=== PATIENT | male | born 1965 | race Native Hawaiian/Other Pacific Islander ===

== ENCOUNTER 2020-06-02 11:11 | Emergency (ER) | payer BC ==
[~2020-06-02] VITALS: Ht 165 cm; Wt 94.3 kg
[2020-06-02 11:43] VITALS: BP_SYST 148; BP_SYST 158; BP_SYST 159; BP_DIAS 105; BP_DIAS 109
--- NOTE | 2020-06-02 12:24 | ED Syncope ---
General Chief Complaint: Dizziness/Syncope Stated Complaint: DIZZINESS Nursing Triage Note: PT AMBULATES WITHOUT ASSISTANCE TO ROOM 5. PT PRESENTS TO ED VIA POV FROM HOME WITH COMPLAINTS OF DIZZINESS X 3 WEEKS AND BUMP ON BACK OF HIS NECK. PT REPORTS HE HAS SEEN HIS DR FOR RTHIS COMPLAINTS AND REPORTS "THEY JUST GAVE ME SOME MEDICATION". History of Present Illness Date Seen by Provider: Jun 02, 2020 Time Seen by Provider: 12:00 Initial Comments 54-year-old [place] complains of dizziness that has been present for approximately 3 weeks as well as a not in the soft tissue on the left side of his cervical spine. He denies an injury to his neck but has increased pain in this area with range of motion. He was started on medication approximately [address] Matamoros, he has taken the medication until last night. His medications include cyclobenzaprine, prednisone taper, tramadol, Zofran, and sulindac. He denies any chest pain, shortness of breath or falls related to the vertigo. He reports pain started after lifting boxes at [employer]. Timing/Prior Episodes: Recent History Symptoms Prior to Episode: None Precipitating Factors: None Loss of Consciousness: No Loss of Consciousness Current Symptoms: No Blurred Vision, No Chest Pain, No Diaphoresis; Dizziness; No Headache, No Injury, No Lightheadedness, No Loss of Bladder Control, No Loss of Bowel Control, No Motionless; Nausea; No Pale, No Shallow/Rapid Breathing, No Weak/Absent Pulse, No Weakness Allergies and Home Medications Allergies Coded Allergies: No Known Drug Allergies (Unverified , 06/02/20) Patient Home Medication List Home Medication List Reviewed: Yes Review of Systems Constitutional: see HPI, dizziness; No malaise, No weakness EENTM: see HPI, no symptoms reported; No blurred vision, No double vision, No nose congestion Respiratory: no symptoms reported, see HPI; No cough, No short of breath Cardiovascular: no symptoms reported, see HPI; No chest pain Gastrointestinal: see HPI, nausea (Related to the dizziness, denies symptoms at this time); No vomiting Musculoskeletal: neck pain (Left) Skin: no symptoms reported, see HPI; No lumps, No rash Psychiatric/Neurological: No Symptoms Reported, See HPI; Denies Headache All Other Systems Reviewed Negative Unless Noted: Yes Past Yktgodr-Xcjxlj-Igxtqx Hx Past Med/Social Hx: Reviewed Nursing Past Med/Soc Hx Patient Social History Alcohol Use: Denies Use Recreational Drug Use: No Smoking Status: Former Smoker Former Smoker, Quit: Jun 13, 2005 Recent Foreign Travel: No Contact w/Someone Who Travel: No Recent Infectious Disease Expo: No Recent Hopitalizations: No Physical Abuse: No Sexual Abuse: No Mistreated: No Fear: No Seasonal Allergies Seasonal Allergies: No Past Medical History Surgeries: No Respiratory: No Cardiac: No Neurological: No Genitourinary: No Gastrointestinal: No Musculoskeletal: No Endocrine: No HEENT: No Cancer: No Psychosocial: No Integumentary: No Blood Disorders: No Physical Exam Vital Signs Vital Signs - First Documented 06/02/20 11:28 Temp 35.9 Pulse 79 Resp 16 B/P (MAP) 165/108 (127) Pulse Ox 96 Capillary Refill : Less Than 3 Seconds Height, Weight, BMI Height: '" Weight: lbs. oz. kg; 34.00 BMI Method: General Appearance: No Apparent Distress, WD/WN HEENT: PERRL/EOMI, Pharynx Normal, TM Abnormal (L) (Cloudy effusion), TM Abnormal (R) (Cloudy effusion mild erythema in canal) Neck: Full Range of Motion (Pain with full flexion no pain with extension or lateral rotation), Normal Inspection, Supple, Tender Lateral (Left) Cardiovascular: Regular Rate, Rhythm, No Edema, No JVD, No Murmur, Normal Peripheral Pulses, Other (No carotid bruit) Respiratory: Chest Non Tender, Lungs Clear, Normal Breath Sounds Gastrointestinal: Normal Bowel Sounds, Non Tender, Soft Back: Normal Inspection, No CVA Tenderness Extremities: Normal Capillary Refill, Normal Inspection, No Pedal Edema Neurologic/Psychiatric: Alert, Oriented x3, No Motor/Sensory Deficits, Normal Mood/Affect Cranial Nerves: Normal Hearing, Normal Speech, PERRL Coordination/Gait: Normal Gait Motor/Sensory: No Motor Deficit, No Sensory Deficit Skin: Normal Color, Warm/Dry; No Rash Progress/Results/Core Measures Results/Orders Lab Results Laboratory Tests Test 06/02/20 12:28 Range/Units White Blood Count 8.8 4.3-11.0 10^3/uL Red Blood Count 5.42 4.30-5.52 10^6/uL Hemoglobin 16.2 13.3-17.7 g/dL Hematocrit 47 40-54 % Mean Corpuscular Volume 87 80-99 fL Mean Corpuscular Hemoglobin 30 25-34 pg Mean Corpuscular Hemoglobin Concent 34 32-36 g/dL Red Cell Distribution Width 11.9 10.0-14.5 % Platelet Count 243 130-400 10^3/uL Mean Platelet Volume 7.9 L 9.0-12.2 fL Immature Granulocyte % (Auto) 1 % Neutrophils (%) (Auto) 59 42-75 % Lymphocytes (%) (Auto) 31 12-44 % Monocytes (%) (Auto) 7 0-12 % Eosinophils (%) (Auto) 2 0-10 % Basophils (%) (Auto) 0 0-10 % Neutrophils # (Auto) 5.2 1.8-7.8 10^3/uL Lymphocytes # (Auto) 2.7 1.0-4.0 10^3/uL Monocytes # (Auto) 0.7 0.0-1.0 10^3/uL Eosinophils # (Auto) 0.2 0.0-0.3 10^3/uL Basophils # (Auto) 0.0 0.0-0.1 10^3/uL Immature Granulocyte # (Auto) 0.1 0.0-0.1 10^3/uL Sodium Level 131 L 135-145 MMOL/L Potassium Level 4.2 3.6-5.0 MMOL/L Chloride Level 97 L 98-107 MMOL/L Carbon Dioxide Level 26 21-32 MMOL/L Anion Gap 8 5-14 MMOL/L Blood Urea Nitrogen 16 7-18 MG/DL Creatinine 1.07 0.60-1.30 MG/DL Estimat Glomerular Filtration Rate > 60 BUN/Creatinine Ratio 15 Glucose Level 119 H 70-105 MG/DL Calcium Level 9.5 8.5-10.1 MG/DL Corrected Calcium 9.3 8.5-10.1 MG/DL Total Bilirubin 0.7 0.1-1.0 MG/DL Aspartate Amino Transf (AST/SGOT) 21 5-34 U/L Alanine Aminotransferase (ALT/SGPT) 80 H 0-55 U/L Alkaline Phosphatase 112 40-136 U/L C-Reactive Protein High Sensitivity 0.44 0.00-0.50 MG/DL Total Protein 7.9 6.4-8.2 GM/DL Albumin 4.3 3.2-4.5 GM/DL My Orders Orders - AMOS LORD Ct Cervical Spine Wo (06/02/20 13:00) Orphenadrine Inj (Ed Only) (Norflex Inje (06/02/20 13:10) Meclizine Tablet (Antivert Tablet) (06/02/20 13:15) Medications Given in ED Current Medications Medications Dose Ordered Sig/Deja Route Start Time Stop Time Status Last Admin Dose Admin Meclizine HCl 25 mg ONCE ONCE PO 06/02/20 13:15 06/02/20 13:16 DC 06/02/20 13:31 25 MG Vital Signs/I&O 06/02/20 06/02/20 11:28 11:43 Temp 35.9 Pulse 79 70 76 80 Resp 16 B/P (MAP) 165/108 (127) 159/105 (123) 148/109 (122) 158/105 (122) Pulse Ox 96 Blood Pressure Mean: 122 Progress Progress Note : Time: 12:00 Progress Note Patient seen and evaluated, will obtain labs and a CT of the neck. Will give Norflex and meclizine. 1300 CT scan pending. 1350 patient reports symptoms are improving. Discharge instructions and return precautions reviewed. All questions answered Initial ECG Impression Date: Jun 02, 2020 Initial ECG Impression Time: 11:29 Initial ECG Rate: 71 Initial ECG Rhythm: Normal Sinus Initial ECG Intervals: Normal Initial ECG Intervals IA 170, QRSD 86, QT 386, QTc 420. [place] P 28, QRS 14, T 29. Initial ECG Impression: Normal Initial ECG Comparisson: No Previous ECG Available Comment Reviewed with Dr. Arenas, agreed with interpretation. Diagnostic Imaging Diagonstic Imaging: CT Plain Films/CT/US/NM/MRI: c-spine Comments NAME: [facility] REC#: [id number] PT STATUS: REG ER : 1965 PHYSICIAN: AMOS LORD ADMIT DATE: 06/02/20/ER Draft Date of Exam:06/02/20 CT CERVICAL SPINE WO PROCEDURE: CT cervical spine without contrast. TECHNIQUE: Multiple contiguous axial images were obtained through the cervical spine without the use of intravenous contrast. Sagittal and coronal reformations were then performed. Auto Exposure Controls were utilized during the CT exam to meet ALARA standards for radiation dose reduction. INDICATION: Dizziness, palpable fullness on the back of the neck. FINDINGS: Cervical vertebral statures are normal. The alignment is anatomic. No acute or suspicious endplate irregularity. No bony destruction or suspicious sclerotic foci. No fracture is identified. Degenerative changes to the discs, endplates, and facets throughout the cervical spine are present. At C3-C4, there is moderate canal and severe left foraminal stenosis. No paraspinal mass, hemorrhage, or fluid collection. Just below the posterior skull base within the posterior soft tissues of the neck, there are some tiny subcutaneous nodules measuring maximal diameter of 5 mm. These may be small sebaceous cysts or small lymph nodes. The soft tissues that can be included in the [id number] revealed no suspicious finding. IMPRESSION: Cervical spondylosis with stenosis greatest at C3-C4 as a chronic finding. No fracture, malalignment, or acute bony pathology. No demonstrated suspicious mass or fluid collection. Dictated on workstation # [id number] Dict: 06/02/20 1332 Trans: 06/02/20 1342 [id number] Interpreted by: KARIS CASTILLO Electronically signed by: Reviewed: Reviewed by Me Departure Impression Primary Impression: Sprain of cervical neck Qualified Codes: S13.9XXA - Sprain of joints and ligaments of unspecified parts of neck, initial encounter Additional Impressions: Vertigo Otitis media Qualified Codes: H66.90 - Otitis media, unspecified, unspecified ear Disposition: 01 HOME, SELF-CARE Condition: Stable Departure-Patient Inst. Decision time for Depature: 13:50 Referrals: TIMOTHY MATAMOROS DO Patient Instructions: Vertigo (a Type of Dizziness) (DC), Labyrinthitis, Cervical Muscle Strain (DC) Add. Discharge Instructions: Continue medications as prescribed by Dr. Matamoros. Take Meclizine 25 mg, Over the Counter, 1 tablet every 8 hours for dizziness. Consider referral for Physical Therapy, Dr. Matamoros can order this. Alternate heat and ice to your neck for 20 minutes at a time. Return to the emergency dept for new, urgent health care needs. All discharge instructions reviewed with patient and/or family. Voiced understanding. Work/School Note: Work Release Form Date Seen in the Emergency Department: Jun 02, 2020 Return to Work: Jun 06, 2020 Other Restrictions Listed Below: No lifting greater than 15 lbs for 2 weeks. No work from elevated levles. Copy Copies To 1: TIMOTHY MATAMOROS AMY ARNP Jun 02, 2020 12:24
[2020-06-02 12:38] LABS: BASOPHILS % (AUTO) 0 % (0-10); EOSINOPHILS # (AUTO) 0.2 10^3/uL (0.0-0.3); EOSINOPHILS % (AUTO) 2 % (0-10); HEMATOCRIT 47 % (40-54); HEMOGLOBIN 16.2 g/dL (13.3-17.7); LYMPHOCYTES # (AUTO) 2.7 10^3/uL (1.0-4.0); LYMPHOCYTES % (AUTO) 31 % (12-44); MEAN CORPUSCULAR HEMOGLOBIN 30 pg (25-34); MEAN CORPUSCULAR HGB CONC 34 g/dL (32-36); MEAN CORPUSCULAR VOLUME 87 fL (80-99); MEAN PLATELET VOLUME 7.9 fL (9.0-12.2); MONOCYTES # (AUTO) 0.7 10^3/uL (0.0-1.0); MONOCYTES % (AUTO) 7 % (0-12); NEUTROPHILS # (AUTO) 5.2 10^3/uL (1.8-7.8); NEUTROPHILS % (AUTO) 59 % (42-75); PLATELET COUNT 243 10^3/uL (130-400); WHITE BLOOD COUNT 8.8 10^3/uL (4.3-11.0)
[2020-06-02 12:45] LABS: ALBUMIN 4.3 GM/DL (3.2-4.5); CHLORIDE 97 MMOL/L (98-107); POTASSIUM 4.2 MMOL/L (3.6-5.0); SODIUM 131 MMOL/L (135-145)
[2020-06-02 12:46] LABS: CALCIUM 9.5 MG/DL (8.5-10.1)
[2020-06-02 12:47] LABS: GLUCOSE 119 MG/DL (70-105); TOTAL PROTEIN 7.9 GM/DL (6.4-8.2)
[2020-06-02 12:48] LABS: CARBON DIOXIDE 26 MMOL/L (21-32)
[2020-06-02 12:49] LABS: BILIRUBIN,TOTAL 0.7 MG/DL (0.1-1.0)
[2020-06-02 12:51] LABS: ALKALINE PHOSPHATASE 112 U/L (40-136); CREATININE SERUM 1.07 MG/DL (0.60-1.30); GFR ESTIMATED > 60
[2020-06-02 12:52] LABS: BUN/CREATININE RATIO 15
[2020-06-02 12:54] LABS: ALANINE AMINOTRANSFERASE 80 U/L (0-55)
[2020-06-02] MEDS ORDERED: ORPHENADRINE 60 MG/2 ML (NORFLEX) AMP (ED ONLY) IM STA (13:10)
[2020-06-02] MEDS ORDERED: CYCL10TA9 (13:11)
[2020-06-02] MEDS ORDERED: TRAM50TA3 (13:11)
[2020-06-02] MEDS ORDERED: PRD10T (13:11)
[2020-06-02] MEDS ORDERED: SULI150T (13:11)
[2020-06-02] MEDS ORDERED: ONDA-105 (13:11)
[2020-06-02] MEDS ORDERED: MELO15TA39 (13:11)
[2020-06-02] MEDS ORDERED: MECLIZINE 25 MG (ANTIVERT) TAB PO ONE (13:15)
--- NOTE | 2020-06-02 13:43 | Diagnostic Imaging Report ---
PROCEDURE: CT cervical spine without contrast. TECHNIQUE: Multiple contiguous axial images were obtained through the cervical spine without the use of intravenous contrast. Sagittal and coronal reformations were then performed. Auto Exposure Controls were utilized during the CT exam to meet ALARA standards for radiation dose reduction. INDICATION: Dizziness, palpable fullness on the back of the neck. FINDINGS: Cervical vertebral statures are normal. The alignment is anatomic. No acute or suspicious endplate irregularity. No bony destruction or suspicious sclerotic foci. No fracture is identified. Degenerative changes to the discs, endplates, and facets throughout the cervical spine are present. At C3-C4, there is moderate canal and severe left foraminal stenosis. No paraspinal mass, hemorrhage, or fluid collection. Just below the posterior skull base within the posterior soft tissues of the neck, there are some tiny subcutaneous nodules measuring maximal diameter of 5 mm. These may be small sebaceous cysts or small lymph nodes. The soft tissues that can be included in the qoikp-eo-nzct revealed no suspicious finding. IMPRESSION: Cervical spondylosis with stenosis greatest at C3-C4 as a chronic finding. No fracture, malalignment, or acute bony pathology. No demonstrated suspicious mass or fluid collection. Dictated by: Dictated on workstation # [id number]
[2020-06-02 14:33] VITALS: BP 139/96
== END 2020-06-02 14:33 | disposition home or self-care (01) ==
LOC: ER 11:16
DX: S13.4XXA Sprain of ligaments of cervical spine, initial encounter (principal); R42 Dizziness and giddiness; H66.92 Otitis media, unspecified, left ear; Z87.891 Personal history of nicotine dependence; X58.XXXA Exposure to other specified factors, initial encounter
CPT/HCPCS: 36415; 72125; 80053; 85025; 86141; 93005

== ENCOUNTER 2021-01-12 10:17 | Emergency (ER) | payer BC ==
[~2021-01-12] VITALS: Ht 167.7 cm; Wt 94.3 kg
[~2021-01-12 10:17] MED LIST: CYCL10TA9; MELO15TA39; ONDA-105; PRD10T; SULI150T; TRAM50TA3
[2021-01-12] MEDS ORDERED: LACTATED RINGERS 1,000 ML IV STA (11:07)
[2021-01-12 11:20] LABS: BASOPHILS % (AUTO) 0 % (0-10); EOSINOPHILS % (AUTO) 1 % (0-10); HEMATOCRIT 47 % (40-54); HEMOGLOBIN 16.3 g/dL (13.3-17.7); LYMPHOCYTES # (AUTO) 1.4 X 10^3 (1.0-4.0); LYMPHOCYTES % (AUTO) 30 % (12-44); MEAN CORPUSCULAR HEMOGLOBIN 30 pg (25-34); MEAN CORPUSCULAR HGB CONC 35 g/dL (32-36); MEAN CORPUSCULAR VOLUME 88 fL (80-99); MEAN PLATELET VOLUME 8.2 fL (9.0-12.2); MONOCYTES # (AUTO) 0.4 X 10^3 (0.0-1.0); MONOCYTES % (AUTO) 9 % (0-12); NEUTROPHILS # (AUTO) 2.7 X 10^3 (1.8-7.8); NEUTROPHILS % (AUTO) 59 % (42-75); PLATELET COUNT 187 10^3/uL (130-400); WHITE BLOOD COUNT 4.5 10^3/uL (4.3-11.0)
[2021-01-12 11:26] LABS: ALBUMIN 3.9 GM/DL (3.2-4.5); POTASSIUM 4.6 MMOL/L (3.6-5.0)
[2021-01-12 11:27] LABS: CALCIUM 8.5 MG/DL (8.5-10.1)
[2021-01-12 11:30] LABS: BILIRUBIN,TOTAL 0.5 MG/DL (0.1-1.0)
[2021-01-12 11:32] LABS: CREATININE SERUM 0.98 MG/DL (0.60-1.30)
--- NOTE | 2021-01-12 11:35 | ED General ---
General Chief Complaint: Dizziness/Syncope Stated Complaint: DIZZINESS;COVID+ Nursing Triage Note: PATIENT STATES HE TESTED POSITIVE ON SATURDAY LAST WEEK AND HAS BEEN FEELING DIZZY, POOR APPETITE , MALAISE AND ABDOMINAL WALL PAIN WITH COUGHING. Source of Information: Patient Exam Limitations: No Limitations (KARYN DELGADO APRN) History of Present Illness Date Seen by Provider: Jan 12, 2021 Time Seen by Provider: 11:35 Initial Comments To ER with reports he became symptomatic on Saturday the , tested positive Saturday the . Presents today with dizziness headache and general malaise. Timing/Duration: 1-2 Days Severity: Moderate Associated Systoms: Cough (KARYN DELGADO APRN) Allergies and Home Medications Allergies Coded Allergies: No Known Drug Allergies (Unverified , 06/02/20) Patient Home Medication List Home Medication List Reviewed: Yes (KARYN DELGADO APRN) Review of Systems Review of Systems Constitutional: see HPI, chills EENTM: see HPI Respiratory: no symptoms reported; No cough, No dyspnea on exertion Cardiovascular: see HPI Genitourinary: no symptoms reported Musculoskeletal: no symptoms reported Skin: no symptoms reported Psychiatric/Neurological: No Symptoms Reported Hematologic/Lymphatic: No Symptoms Reported Immunological/Allergic: no symptoms reported (KARYN DELGADO APRN) Past Ncxgghp-Sljgmk-Krcxst Hx Patient Social History Tobacco Use?: No Use of E-Cig and/or Vaping dev: No Substance use?: No Alcohol Use?: No Pt feels they are or have been: No (KARYN DELGADO APRN) Immunizations Up To Date Influenza Vaccine Up-to-Date: Yes; Up-to-Date (KARYN DELGADO APRN) Seasonal Allergies Seasonal Allergies: No (KARYN DELGADO APRN) Past Medical History Surgeries: No Respiratory: No Cardiac: No Neurological: No Genitourinary: No Gastrointestinal: No Musculoskeletal: No Endocrine: No HEENT: No Cancer: No Psychosocial: No Integumentary: No Blood Disorders: No (KARYN DELGADO APRN) Physical Exam Vital Signs Vital Signs - First Documented 01/12/21 01/12/21 10:35 10:51 Temp 37.3 Pulse 84 Resp 18 B/P (MAP) 144/95 (111) Pulse Ox 96 O2 Delivery Room Air (AL ODOM MD) Vital Signs Capillary Refill : Less Than 3 Seconds (KARYN DELGADO APRN) Height, Weight, BMI Height: '" Weight: lbs. oz. kg; 33.00 BMI Method: General Appearance: No Apparent Distress, WD/WN, Other (98% on room air with normal respiratory rate) Eyes: Bilateral Eye Normal Inspection, Bilateral Eye PERRL, Bilateral Eye EOMI HEENT: PERRL/EOMI, TMs Normal Neck: Full Range of Motion, Normal Inspection Respiratory: Normal Breath Sounds, No Accessory Muscle Use, No Respiratory Distress Cardiovascular: Regular Rate, Rhythm, Normal Peripheral Pulses Gastrointestinal: Normal Bowel Sounds, Non Tender, Soft Extremity: Normal Capillary Refill, Normal Inspection Neurologic/Psychiatric: Alert, Oriented x3 Skin: Normal Color, Warm/Dry (KARYN DELGADO APRN) Progress/Results/Core Measures Suspected Sepsis SIRS Temperature: Pulse: 84 Respiratory Rate: 18 Laboratory Tests 01/12/21 10:51: White Blood Count 4.5 Blood Pressure 144 /95 Mean: 111 Laboratory Tests 01/12/21 10:51: Creatinine 0.98, Platelet Count 187, Total Bilirubin 0.5 (KARYN DELGADO APRN) Results/Orders Lab Results Laboratory Tests Test 01/12/21 10:51 Range/Units White Blood Count 4.5 4.3-11.0 10^3/uL Red Blood Count 5.39 4.30-5.52 10^6/uL Hemoglobin 16.3 13.3-17.7 g/dL Hematocrit 47 40-54 % Mean Corpuscular Volume 88 80-99 fL Mean Corpuscular Hemoglobin 30 25-34 pg Mean Corpuscular Hemoglobin Concent 35 32-36 g/dL Red Cell Distribution Width 12.1 10.0-14.5 % Platelet Count 187 130-400 10^3/uL Mean Platelet Volume 8.2 L 9.0-12.2 fL Immature Granulocyte % (Auto) 0 % Neutrophils (%) (Auto) 59 42-75 % Lymphocytes (%) (Auto) 30 12-44 % Monocytes (%) (Auto) 9 0-12 % Eosinophils (%) (Auto) 1 0-10 % Basophils (%) (Auto) 0 0-10 % Neutrophils # (Auto) 2.7 1.8-7.8 X 10^3 Lymphocytes # (Auto) 1.4 1.0-4.0 X 10^3 Monocytes # (Auto) 0.4 0.0-1.0 X 10^3 Eosinophils # (Auto) 0.0 0.0-0.3 10^3/uL Basophils # (Auto) 0.0 0.0-0.1 10^3/uL Immature Granulocyte # (Auto) 0.0 0.0-0.1 10^3/uL Sodium Level 131 L 135-145 MMOL/L Potassium Level 4.6 3.6-5.0 MMOL/L Chloride Level 96 L 98-107 MMOL/L Carbon Dioxide Level 19 L 21-32 MMOL/L Anion Gap 16 H 5-14 MMOL/L Blood Urea Nitrogen 14 7-18 MG/DL Creatinine 0.98 0.60-1.30 MG/DL Estimat Glomerular Filtration Rate 80 BUN/Creatinine Ratio 14 Glucose Level 158 H 70-105 MG/DL Calcium Level 8.5 8.5-10.1 MG/DL Corrected Calcium 8.6 8.5-10.1 MG/DL Total Bilirubin 0.5 0.1-1.0 MG/DL Aspartate Amino Transf (AST/SGOT) 38 H 5-34 U/L Alanine Aminotransferase (ALT/SGPT) 50 0-55 U/L Alkaline Phosphatase 104 40-136 U/L C-Reactive Protein High Sensitivity 3.84 H 0.00-0.50 MG/DL Total Protein 8.0 6.4-8.2 GM/DL Albumin 3.9 3.2-4.5 GM/DL (AL ODOM MD) Vital Signs/I&O 01/12/21 01/12/21 01/12/21 10:35 10:51 12:55 Temp 37.3 Pulse 84 86 Resp 18 18 B/P (MAP) 144/95 (111) 144/85 (111) Pulse Ox 96 97 O2 Delivery Room Air Room Air Room Air (AL ODOM MD) Vital Signs/I&O Capillary Refill : Less Than 3 Seconds (KARYN DELGADO APRN) Blood Pressure Mean: 111 Departure Impression Primary Impression: COVID-19 Disposition: 01 HOME, SELF-CARE Condition: Improved Departure-Patient Inst. Decision time for Depature: 12:35 (KARYN DELGADO APRN) Referrals: TIMOTHY MATAMOROS DO (PCP/Family) Primary Care Physician Patient Instructions: COVID-19 (DC) ATTENDING PHYSICIAN NOTE: I was physically present as attending physician in the emergency department during the care of this patient, but I was not directly involved in the decision making or delivery of care for this patient. (AL ODOM MD) KARYN DELGADO APRN Jan 12, 2021 11:35 AL ODOM MD Jan 13, 2021 19:19
--- NOTE | 2021-01-12 12:00 | Diagnostic Imaging Report ---
INDICATION: COVID infection. FINDINGS: Single AP view of the chest is obtained. Heart size and pulmonary vascularity are at the upper limits of normal. There may be slight ground-glass density in the parahilar regions; however, no consolidation, pneumothorax, or pleural fluid is seen. IMPRESSION: Heart size and pulmonary vascularity are at the upper limits of normal with possible slight parahilar edema and/or pneumonitis. Dictated by: Dictated on workstation # [id number]
[2021-01-12] MEDS ORDERED: ORPHENADRINE 60 MG/2 ML (NORFLEX) AMP (ED ONLY) IV ONE (12:45)
[2021-01-12] MEDS ORDERED: MECLIZINE 25 MG (ANTIVERT) TAB PO ONE (12:45)
[2021-01-12] MEDS ORDERED: KETOROLAC 30 MG/ML VIAL IVP ONE (12:45)
[2021-01-12 12:55] VITALS: BP 144/85
== END 2021-01-12 12:58 | disposition home or self-care (01) ==
LOC: EDUNIT# 10:17 → ER 10:19
DX: U07.1 COVID-19 (principal)
CPT/HCPCS: 36415; 71045; 80053; 85025; 86141

== ENCOUNTER 2021-01-13 20:53 | Emergency (ER) | payer BC ==
[~2021-01-13] VITALS: Ht 167.6 cm; Wt 97.0 kg
[2021-01-13] MEDS ORDERED: LACTATED RINGERS 1,000 ML IV ONE (21:15)
--- NOTE | 2021-01-13 21:22 | ED General ---
General Stated Complaint: COVID POSITIVE,SOB Source of Information: Patient (SOMEWHAT LIMITED HISTORIAN) History of Present Illness Date Seen by Provider: Jan 13, 2021 Time Seen by Provider: 21:03 Initial Comments PT ARRIVES VIA EMS FROM HOME PT IS COVID-19 POSITIVE STATES HE BEGAN GETTING SICK LAST Saturday01/02/21, AND TESTED + FOR COVID-19 ON Saturday01/04/[address] [facility] [address] THRU TESTING STATES HE HAS HAD A COUGH AND FEVER--HAS NEVER CHECKED HIS TEMPERATURE HAS NOT TAKEN ANYTHING FOR HIS SYMPTOMS AT ANY TIME PT ARRIVES TONIGHT FOR BODY ACHES AND MUSCLE CRAMPING FOR THE LAST COUPLE OF HOURS C/O MILD SHORTNESS OF BREATH NO NAUSEA/VOMITING/DIARRHEA NO HEADACHE NO LOSS OF TASTE OR SMELL C/O DIZZINESS AT TIMES SEEN HERE YESTERDAY FOR SAME SYMPTOMS NO DIFFERENT TODAY PT LIVES ALONE STATES HE WORKS AT [employer] DENIES CHRONIC ILLNESSES OR DAILY MEDICATIONS PCP: DR. MATAMOROS Allergies and Home Medications Allergies Coded Allergies: No Known Drug Allergies (Unverified , 06/02/20) Home Medications Azithromycin 500 Mg Tablet, 500 MG PO DAILY Prescribed by: GERMAIN ONEILL on 01/14/2139 Benzonatate 100 Mg Capsule, 200 MG PO TID Prescribed by: GERMAIN ONEILL on 01/14/2140 Dexamethasone 6 Mg Tablet, 6 MG PO DAILY Prescribed by: GERMAIN ONEILL on 01/14/2139 Patient Home Medication List Home Medication List Reviewed: Yes Review of Systems Review of Systems Constitutional: see HPI, diaphoresis, dizziness, fever, malaise EENTM: no symptoms reported Respiratory: see HPI, cough, short of breath Cardiovascular: no symptoms reported; No chest pain Gastrointestinal: No diarrhea; loss of appetite; No nausea, No vomiting Genitourinary: no symptoms reported Musculoskeletal: see HPI, muscle pain, muscle cramps Skin: no symptoms reported Psychiatric/Neurological: No Symptoms Reported; Denies Headache Hematologic/Lymphatic: No Symptoms Reported Immunological/Allergic: no symptoms reported Past Hesllwv-Ujqxxb-Dndlzj Hx Patient Social History Tobacco Use?: No Smoking Status: Never a Smoker Smokeless Tobacco Frequency: Never a User Use of E-Cig and/or Vaping Aram: Never a User Substance use?: No Alcohol Use?: No Seasonal Allergies Seasonal Allergies: No Past Medical History Surgeries: No Respiratory: Yes (COVID-19 12/2019) Cardiac: No Neurological: No Genitourinary: No Gastrointestinal: No Musculoskeletal: No Endocrine: No HEENT: No Cancer: No Psychosocial: No Integumentary: No Blood Disorders: No Physical Exam Vital Signs Vital Signs - First Documented 01/13/21 21:04 Temp 37.2 Pulse 84 Resp 20 B/P (MAP) 121/87 (98) Pulse Ox 97 O2 Delivery Room Air Capillary Refill : Height, Weight, BMI Height: '" Weight: lbs. oz. kg; 33.00 BMI Method: General Appearance: No Apparent Distress, WD/WN, Other (DIAPHORETIC. STANDING ON SIDE OF BED, LEANING OVER RAIL, BUT DOES NOT APPEAR TO BE IN ANY ACTUAL DISTRESS. ) HEENT: PERRL/EOMI, TMs Normal, Normal ENT Inspection, Pharynx Normal Neck: Normal Inspection Respiratory: Chest Non Tender, Normal Breath Sounds, No Accessory Muscle Use, No Respiratory Distress Cardiovascular: Regular Rate, Rhythm, No Edema, No JVD, No Murmur, Normal Peripheral Pulses Gastrointestinal: Non Tender, Soft Back: Normal Inspection Extremity: Normal Inspection Neurologic/Psychiatric: Alert, Oriented x3, No Motor/Sensory Deficits, Normal Mood/Affect, cook box filler II-XII Norm as Tested Skin: Normal Color (PT IS ), Diaphoresis (AND WARM) Focused Exam Lactate Level 01/13/21 21:29: Lactic Acid Level Laboratory Tests Test 01/13/21 21:29 Progress/Results/Core Measures Suspected Sepsis SIRS Temperature: Pulse: Respiratory Rate: Laboratory Tests 01/13/21 21:29: White Blood Count 5.8 Blood Pressure / Mean: 01/13/21 21:29: Laboratory Tests 01/13/21 21:29: Creatinine 1.04, INR Comment 0.9, Platelet Count 205, Total Bilirubin 0.5 Results/Orders Lab Results Laboratory Tests Test 01/13/21 21:29 01/13/21 23:08 Range/Units White Blood Count 5.8 4.3-11.0 10^3/uL Red Blood Count 5.50 4.30-5.52 10^6/uL Hemoglobin 16.7 13.3-17.7 g/dL Hematocrit 48 40-54 % Mean Corpuscular Volume 87 80-99 fL Mean Corpuscular Hemoglobin 30 25-34 pg Mean Corpuscular Hemoglobin Concent 35 32-36 g/dL Red Cell Distribution Width 11.8 10.0-14.5 % Platelet Count 205 130-400 10^3/uL Mean Platelet Volume 8.3 L 9.0-12.2 fL Immature Granulocyte % (Auto) 1 % Neutrophils (%) (Auto) 66 42-75 % Lymphocytes (%) (Auto) 23 12-44 % Monocytes (%) (Auto) 10 0-12 % Eosinophils (%) (Auto) 1 0-10 % Basophils (%) (Auto) 0 0-10 % Neutrophils # (Auto) 3.8 1.8-7.8 10^3/uL Lymphocytes # (Auto) 1.3 1.0-4.0 10^3/uL Monocytes # (Auto) 0.6 0.0-1.0 10^3/uL Eosinophils # (Auto) 0.0 0.0-0.3 10^3/uL Basophils # (Auto) 0.0 0.0-0.1 10^3/uL Immature Granulocyte # (Auto) 0.0 0.0-0.1 10^3/uL Erythrocyte Sedimentation Rate 23 0-30 MM/HR Prothrombin Time 12.2 12.2-14.7 SEC INR Comment 0.9 0.8-1.4 Activated Partial Thromboplast Time 34 24-35 SEC D-Dimer 1.38 H 0.00-0.49 UG/ML Sodium Level 134 L 135-145 MMOL/L Potassium Level 4.6 3.6-5.0 MMOL/L Chloride Level 94 L 98-107 MMOL/L Carbon Dioxide Level 23 21-32 MMOL/L Anion Gap 17 H 5-14 MMOL/L Blood Urea Nitrogen 13 7-18 MG/DL Creatinine 1.04 0.60-1.30 MG/DL Estimat Glomerular Filtration Rate 74 BUN/Creatinine Ratio 13 Glucose Level 130 H 70-105 MG/DL Calcium Level 9.0 8.5-10.1 MG/DL Corrected Calcium 9.0 8.5-10.1 MG/DL Magnesium Level 2.2 1.6-2.4 MG/DL Total Bilirubin 0.5 0.1-1.0 MG/DL Aspartate Amino Transf (AST/SGOT) 55 H 5-34 U/L Alanine Aminotransferase (ALT/SGPT) 54 0-55 U/L Alkaline Phosphatase 117 40-136 U/L Total Creatine Kinase 300 H 30-200 U/L Creatine Kinase MB 1.2 <6.6 NG/ML Myoglobin 147.7 H 10.0-92.0 NG/ML Troponin I < 0.028 <0.028 NG/ML C-Reactive Protein High Sensitivity 6.68 H 0.00-0.50 MG/DL B-Type Natriuretic Peptide < 10.0 <100.0 PG/ML Total Protein 8.0 6.4-8.2 GM/DL Albumin 4.0 3.2-4.5 GM/DL Procalcitonin 0.07 <0.10 NG/ML Urine Color YELLOW Urine Clarity CLEAR Urine pH 6.0 5-9 Urine Specific [place] 1.015 L 1.016-1.022 Urine Protein TRACE H NEGATIVE Urine Glucose (UA) NEGATIVE NEGATIVE Urine Ketones NEGATIVE NEGATIVE Urine Nitrite NEGATIVE NEGATIVE Urine Bilirubin NEGATIVE NEGATIVE Urine Urobilinogen 0.2 < = 1.0 MG/DL Urine Leukocyte Esterase NEGATIVE NEGATIVE Urine RBC (Auto) TRACE-I NEGATIVE Urine RBC 0-2 /HPF Urine WBC NONE /HPF Urine Crystals NONE /LPF Urine Bacteria TRACE /HPF Urine Casts PRESENT /LPF Urine Hyaline Casts 0-2 H /LPF Urine Mucus NEGATIVE /LPF Urine Culture Indicated NO Micro Results Microbiology 01/13/21 Blood Culture - Preliminary, Resulted No growth 01/13/21 Blood Culture - Preliminary, Resulted No growth My Orders Orders - GERMAIN ONEILL DO Ed Iv/Invasive Line Start (01/13/21 21:03) Ekg Tracing (01/13/21 21:03) O2 (01/13/21 21:03) Monitor-Rhythm Ecg Trace Only (01/13/21 21:03) BNP (01/13/21 21:03) Cbc With Automated Diff (01/13/21 21:03) Comprehensive Metabolic Panel (01/13/21 21:03) Creatine Kinase (01/13/21 21:03) Creatine Kinase Mb (01/13/21 21:03) Hs C Reactive Protein (01/13/21 21:03) Fibrin Degradation Products (01/13/21 21:03) Lactic Acid Analyzer (01/13/21 21:03) Magnesium (01/13/21 21:03) Procalcitonin (Pct) (01/13/21 21:03) Protime With Inr (01/13/21 21:03) Partial Thromboplastin Time (01/13/21 21:03) Ua Culture If Indicated (01/13/21 21:03) Blood Culture (01/13/21 21:03) Erythrocyte Sedimentation Rate (01/13/21 21:03) Myoglobin Serum (01/13/21 21:03) Troponin I (01/13/21 21:03) Ed Iv/Invasive Line Start (01/13/21 21:03) Lactated Ringers (Lr 1000 Ml Iv Solution (01/13/21 21:15) Chest 1 View, Ap/Pa Only (01/13/21 21:19) Dexamethasone Injection (Decadron Inje (01/13/21 22:00) Ct Angio Chest W (01/13/21 22:00) Iohexol Injection (Omnipaque 350 Mg/Ml 1 (01/14/21 00:00) Received Contrast (Hold Metformin- Contr (01/14/21 00:00) Sodium Chloride Flush (Catheter Flush Sy (01/14/21 00:00) Ns (Ivpb) (Sodium Chloride 0.9% Ivpb Bag (01/14/21 00:00) Azithromycin Tablet (Zithromax Tablet) (01/14/21 00:45) Medications Given in ED Vital Signs/I&O 01/13/21 01/14/21 21:04 03:31 Temp 37.2 Pulse 84 82 Resp 20 20 B/P (MAP) 121/87 (98) 109/87 Pulse Ox 97 94 O2 Delivery Room Air Room Air Capillary Refill : Progress Note : Progress Note PLACED IN ISOLATION ROOM PPE WORN AT ALL TIMES PT ADVISED OF CONTINUED NEED FOR QUARANTINE PT IS OUTSIDE TREATMENT WINDOW FOR REGEN-COV NO HYPOXIA NO DYSPNEA NO COUGH NO ABNORMAL VITALS NO TEMP > 99 THROUGHOUT ER STAY NO DETERIORATION IN PT'S CONDITION DURING ER STAY ECG Initial ECG Impression Date: Jan 13, 2021 Initial ECG Impression Time: 21:13 Initial ECG Rate: 88 Initial ECG Rhythm: Normal Sinus Diagnostic Imaging Comments CXR--PER RADIOLOGIST REPORT AT 2157 FINDINGS: Patchy bilateral peripheral infiltrates noted in the lung bases. Heart is unremarkable. There is mild pulmonary vascular congestion. There is no pneumothorax. IMPRESSION: 1. Scattered bilateral pulmonary infiltrates. 2. Mild pulmonary vascular congestion. CT CHEST ANGIOGRAM--PER RADIOLOGIST REPORT AT 0034 AND VIA [facility] IMPRESSION: 1. No CTA evidence of pulmonary embolus or other acute abnormality within the thorax. 2. Patchy predominantly groundglass densities in both lungs are likely related to patient's known Covid infection. Reviewed: Reviewed by Me Departure Impression Primary Impression: Pneumonia due to COVID-19 virus Disposition: HOME, SELF-CARE Condition: Stable Departure-Patient Inst. Referrals: TIMOTHY MATAMOROS DO (PCP/Family) Primary Care Physician Patient Instructions: COVID-19 ED, Pneumonia, Adult ED, Recovery After COVID-19 Add. Discharge Instructions: LOTS OF CLEAR LIQUIDS--WATER, BROTH,JELLO, GATORADE YOU NEED TO CHECK YOUR TEMPERATURE EVERY 4 HOURS ALTERNATE TYLENOL 1 GRAM AND MOTRIN 800 MG 4 TIMES A DAY NEEDED FOR PAIN OR FEVER OVER THE COUNTER ROBITUSSIN DM FOR COUGH FOLLOW UP WITH YOUR DR IN 4-5 DAYS FOR FURTHER CARE, RETURN TO ER IF YOUR BREATHING WORSENS Scripts Benzonatate (TESSALON PERLES) 100 Mg Capsule 200 MG PO TID, #50 CAP Prov: GERMAIN ONEILL DO 01/14/21 Dexamethasone (Decadron) 6 Mg Tablet 6 MG PO DAILY, #10 TAB Prov: GERMAIN ONEILL DO 01/14/21 Azithromycin (Zithromax) 500 Mg Tablet 500 MG PO DAILY for 5 Days, #5 TAB Prov: GERMAIN ONEILL DO 01/14/21 GERMAIN ONEILL DO Jan 13, 2021 21:22
[2021-01-13 21:38] LABS: BASOPHILS % (AUTO) 0 % (0-10); EOSINOPHILS % (AUTO) 1 % (0-10); HEMATOCRIT 48 % (40-54); HEMOGLOBIN 16.7 g/dL (13.3-17.7); LYMPHOCYTES # (AUTO) 1.3 10^3/uL (1.0-4.0); LYMPHOCYTES % (AUTO) 23 % (12-44); MEAN CORPUSCULAR HEMOGLOBIN 30 pg (25-34); MEAN CORPUSCULAR HGB CONC 35 g/dL (32-36); MEAN CORPUSCULAR VOLUME 87 fL (80-99); MEAN PLATELET VOLUME 8.3 fL (9.0-12.2); MONOCYTES # (AUTO) 0.6 10^3/uL (0.0-1.0); MONOCYTES % (AUTO) 10 % (0-12); NEUTROPHILS # (AUTO) 3.8 10^3/uL (1.8-7.8); NEUTROPHILS % (AUTO) 66 % (42-75); PLATELET COUNT 205 10^3/uL (130-400); WHITE BLOOD COUNT 5.8 10^3/uL (4.3-11.0)
--- NOTE | 2021-01-13 21:52 | Diagnostic Imaging Report ---
INDICATION: Covid positive. Cough and congestion. EXAMINATION: Chest 01/13/2021 COMPARISON: 01/12/2021 FINDINGS: Patchy bilateral peripheral infiltrates noted in the lung bases. Heart is unremarkable. There is mild pulmonary vascular congestion. There is no pneumothorax. IMPRESSION: 1. Scattered bilateral pulmonary infiltrates. 2. Mild pulmonary vascular congestion. Dictated by: Dictated on workstation # [id number]
[2021-01-13 21:53] LABS: CHLORIDE 94 MMOL/L (98-107); POTASSIUM 4.6 MMOL/L (3.6-5.0); SODIUM 134 MMOL/L (135-145)
[2021-01-13 21:55] LABS: FIBRIN DEGRADATION PRODUCTS 1.38 UG/ML (0.00-0.49); GLUCOSE 130 MG/DL (70-105); INR 0.9 (0.8-1.4); PROTHROMBIN TIME PATIENT 12.2 SEC (12.2-14.7)
[2021-01-13 21:56] LABS: CARBON DIOXIDE 23 MMOL/L (21-32)
[2021-01-13 21:57] LABS: BILIRUBIN,TOTAL 0.5 MG/DL (0.1-1.0)
[2021-01-13 21:59] LABS: ALKALINE PHOSPHATASE 117 U/L (40-136); CREATININE SERUM 1.04 MG/DL (0.60-1.30); GFR ESTIMATED 74
[2021-01-13 22:00] LABS: BUN/CREATININE RATIO 13
[2021-01-13 22:02] LABS: ALANINE AMINOTRANSFERASE 54 U/L (0-55); MAGNESIUM 2.2 MG/DL (1.6-2.4)
[2021-01-13 22:03] LABS: CREATINE KINASE 300 U/L (30-200)
[2021-01-13 22:09] LABS: ERYTHROCYTE SEDIMENTATION RATE 23 MM/HR (0-30)
[2021-01-13 22:10] LABS: CREATINE KINASE MB 1.2 NG/ML (<6.6)
[2021-01-13 23:20] LABS: BILIRUBIN,URINE NEGATIVE (NEGATIVE); CLARITY,URINE CLEAR; COLOR,URINE YELLOW; GLUCOSE, URINE (UA) NEGATIVE (NEGATIVE); KETONES,URINE NEGATIVE (NEGATIVE); LEUKOCYTE ESTERASE ,URINE NEGATIVE (NEGATIVE); NITRITE,URINE NEGATIVE (NEGATIVE); PROTEIN,URINE TRACE (NEGATIVE)
[2021-01-13 23:26] LABS: BACTERIA,URINE TRACE /HPF; HYALINE CASTS, URINE 0-2 /LPF; RBC,URINE 0-2 /HPF
[2021-01-14] MEDS ORDERED: HOLD METFORMIN - RECEIVED CONTRAST 20 ML VIAL IV SCH
[2021-01-14] MEDS ORDERED: NS 100 ML (IVPB) BAG IV ONE
[2021-01-14] MEDS ORDERED: IOHEXOL 350 MG/ML 100 ML (OMNIPAQUE 350) VIAL IV ONE
[2021-01-14] MEDS ORDERED: CATHETER FLUSH 10 ML SYR IV PRN
--- NOTE | 2021-01-14 00:03 | Diagnostic Imaging Report ---
PROCEDURE: CT angiography of the chest with contrast. TECHNIQUE: Multiple contiguous axial images were obtained through the chest after uneventful bolus administration of intravenous contrast. 3D reconstructed CTA MIP acquisitions were also performed. Auto Exposure Controls were utilized during the CT exam to meet ALARA standards for radiation dose reduction. INDICATION: Covid infection with dyspnea and shortness of breath. There is good opacification of the pulmonary arteries without intraluminal filling defect identified. Thoracic aorta is of normal caliber with mild diffuse atherosclerotic calcification. Patchy areas of predominantly groundglass density are seen in the periphery of both lungs without significant pleural or pericardial fluid. There is no evidence of pathologically enlarged adenopathy. Upper abdominal sections reveal no focal lesion. IMPRESSION: 1. No CTA evidence of pulmonary embolus or other acute abnormality within the thorax. 2. Patchy predominantly groundglass densities in both lungs are likely related to patient's known Covid infection. Dictated by: Dictated on workstation # [id number]
[2021-01-14] MEDS ORDERED: AZIT500T PO (00:40)
[2021-01-14] MEDS ORDERED: DEXA6TAB6 PO (00:40)
[2021-01-14] MEDS ORDERED: BENZ100C18 PO (00:41)
[2021-01-14] MEDS ORDERED: AZITHROMYCIN 250 MG TAB (ZITHROMAX) PO ONE (00:45)
[2021-01-14 03:31] VITALS: BP 109/87
== END 2021-01-14 01:21 | disposition home or self-care (01) ==
LOC: EDUNIT# 20:53 → ER 20:55
DX: U07.1 COVID-19 (principal); J12.82 Pneumonia due to coronavirus disease 2019
CPT/HCPCS: 71045; 71275; 80053; 81000; 82550; 82553; 83735; 83874; 83880; 84145; 84484; 85379; 85610; 85652; 85730; 86141; 87040; 93005; 93041

== ENCOUNTER 2021-02-15 12:02 | Inpatient (IN) | payer BC ==
[~2021-02-15] VITALS: Ht 167.7 cm; Wt 98.0 kg
[~2021-02-15 12:02] MED LIST changes: +AZIT500T PO; +BENZ100C18 PO; +DEXA6TAB6 PO
--- NOTE | 2021-02-15 12:26 | ED Chest Pain ---
General Chief Complaint: Chest Pain Stated Complaint: CP, History of Present Illness Date Seen by Provider: Feb 15, 2021 Time Seen by Provider: 12:10 Initial Comments 55-year-old male presents for chest pain that has been intermittent for the last month. He reports having Covid and since then he has been having discomfort. He has received his first Moderna shot. At 2200 yesterday he reports chest pain that has been consistent rating it between a 4 and 8. He was seen at [facility] and referred here. He denies a previous history of CAD and family history is only significant for hypertension. The patient denies any associated nausea, vomiting or diaphoresis with the pain. He rates the pain currently at a 2. He is not on any medications and is not allergic to any medications. He is not diabetic and reports eating breakfast this morning which did not change his symptoms. At times the chest pain is associated with tingling in both hands. He is not experiencing that at this time. He denies a history of HTN, 170s/100s currently. Timing/Duration: intermittent Severity/Quality: mild Location: substernal Radiation: no radiation Prior CP/Workup: no prior chest pain ASA po RNFA: No NTG SL RNFA: No Associated Symptoms: No abdominal pain, No back pain, No diaphoresis, No dizziness, No edema, No fatigue, No fever/chills, No headache, No heartburn, No nausea/vomiting, No shortness of breath, No syncope, No weakness Allergies and Home Medications Allergies Coded Allergies: No Known Drug Allergies (Unverified , 06/02/20) Home Medications Azithromycin 500 Mg Tablet, 500 MG PO DAILY Prescribed by: GERMAIN ONEILL on 01/14/2139 Benzonatate 100 Mg Capsule, 200 MG PO TID Prescribed by: GREMAIN ONEILL on 01/14/2140 Dexamethasone 6 Mg Tablet, 6 MG PO DAILY Prescribed by: GERMAIN ONEILL on 01/14/2139 Patient Home Medication List Home Medication List Reviewed: Yes Review of Systems Review of Systems Constitutional: no symptoms reported, see HPI Cardiovascular: See HPI, Chest Pain All Other Systems Reviewed Negative Unless Noted: Yes Past Mmzdodj-Yynxos-Tfnqyx Hx Seasonal Allergies Seasonal Allergies: No Past Medical History Surgeries: No Respiratory: Yes (COVID-19 12/2019) Cardiac: No Neurological: No Genitourinary: No Gastrointestinal: No Musculoskeletal: No Endocrine: No HEENT: No Cancer: No Psychosocial: No Integumentary: No Blood Disorders: No Family Medical History Reviewed Nursing Family Hx Physical Exam Vital Signs Capillary Refill : Height, Weight, BMI Height: '" Weight: lbs. oz. kg; 34.00 BMI Method: General Appearance: No Apparent Distress, WD/WN HEENT: PERRL/EOMI, TMs Normal, Normal ENT Inspection, Pharynx Normal Neck: Full Range of Motion, Normal Inspection, Non Tender, Supple Respiratory: Lungs Clear, Normal Breath Sounds Cardiovascular: Regular Rate, Rhythm, No Edema, No Murmur, Normal Peripheral Pulses Gastrointestinal: Normal Bowel Sounds, Non Tender, Soft Extremity: Normal Capillary Refill, Normal Inspection, Normal Range of Motion, Non Tender, No Pedal Edema Neurologic/Psychiatric: Alert, Oriented x3, No Motor/Sensory Deficits, Normal Mood/Affect Skin: Normal Color, Warm/Dry; No Diaphoresis Progress/Results/Core Measures Results/Orders Lab Results Laboratory Tests Test 02/15/21 12:20 Range/Units White Blood Count 6.3 4.3-11.0 10^3/uL Red Blood Count 4.80 4.30-5.52 10^6/uL Hemoglobin 14.6 13.3-17.7 g/dL Hematocrit 43 40-54 % Mean Corpuscular Volume 89 80-99 fL Mean Corpuscular Hemoglobin 30 25-34 pg Mean Corpuscular Hemoglobin Concent 34 32-36 g/dL Red Cell Distribution Width 12.8 10.0-14.5 % Platelet Count 303 130-400 10^3/uL Mean Platelet Volume 7.9 L 9.0-12.2 fL Immature Granulocyte % (Auto) 1 % Neutrophils (%) (Auto) 44 42-75 % Lymphocytes (%) (Auto) 44 12-44 % Monocytes (%) (Auto) 9 0-12 % Eosinophils (%) (Auto) 1 0-10 % Basophils (%) (Auto) 1 0-10 % Neutrophils # (Auto) 2.8 1.8-7.8 10^3/uL Lymphocytes # (Auto) 2.8 1.0-4.0 10^3/uL Monocytes # (Auto) 0.6 0.0-1.0 10^3/uL Eosinophils # (Auto) 0.1 0.0-0.3 10^3/uL Basophils # (Auto) 0.1 0.0-0.1 10^3/uL Immature Granulocyte # (Auto) 0.1 0.0-0.1 10^3/uL Prothrombin Time 11.8 L 12.2-14.7 SEC INR Comment 0.8 0.8-1.4 Activated Partial Thromboplast Time 28 24-35 SEC Sodium Level 138 135-145 MMOL/L Potassium Level 3.8 3.6-5.0 MMOL/L Chloride Level 104 98-107 MMOL/L Carbon Dioxide Level 25 21-32 MMOL/L Anion Gap 9 5-14 MMOL/L Blood Urea Nitrogen 12 7-18 MG/DL Creatinine 0.89 0.60-1.30 MG/DL Estimat Glomerular Filtration Rate 89 BUN/Creatinine Ratio 13 Glucose Level 125 H 70-105 MG/DL Calcium Level 9.8 8.5-10.1 MG/DL Corrected Calcium 9.7 8.5-10.1 MG/DL Magnesium Level 2.0 1.6-2.4 MG/DL Total Bilirubin 0.3 0.1-1.0 MG/DL Aspartate Amino Transf (AST/SGOT) 19 5-34 U/L Alanine Aminotransferase (ALT/SGPT) 28 0-55 U/L Alkaline Phosphatase 90 40-136 U/L Myoglobin 46.4 10.0-92.0 NG/ML Troponin I 0.119 H <0.028 NG/ML B-Type Natriuretic Peptide 13.1 <100.0 PG/ML Total Protein 7.6 6.4-8.2 GM/DL Albumin 4.1 3.2-4.5 GM/DL My Orders Orders - AMOS LORD Cbc With Automated Diff (02/15/21 12:18) Magnesium (02/15/21 12:18) Chest 1 View, Ap/Pa Only (02/15/21 12:18) Ekg Tracing (02/15/21 12:18) Comprehensive Metabolic Panel (02/15/21 12:18) Myoglobin Serum (02/15/21 12:18) Protime With Inr (02/15/21 12:18) Partial Thromboplastin Time (02/15/21 12:18) O2 (02/15/21 12:18) Monitor-Rhythm Ecg Trace Only (02/15/21 12:18) Ed Iv/Invasive Line Start (02/15/21 12:18) BNP (02/15/21 12:18) Troponin I (02/15/21 12:18) Aspirin Chewable Tablet (Baby Aspirin Ch (02/15/21 12:30) Labetalol Injection (Normodyne Injection (02/15/21 12:30) Nitroglycerin 0.4 Mg Btl 25's (Nitrostat (02/15/21 13:25) Medications Given in ED Current Medications Medications Dose Ordered Sig/Deja Route Start Time Stop Time Status Last Admin Dose Admin Aspirin 324 mg ONCE ONCE PO 02/15/21 12:30 02/15/21 12:31 DC 02/15/21 12:33 324 MG Labetalol HCl 20 mg ONCE ONCE IV 02/15/21 12:30 02/15/21 12:31 DC 02/15/21 12:33 20 MG Progress Progress Note : Time: 12:10 Progress Note Patient seen and evaluated, will obtain EKG, chest x-ray, labs and give aspirin 324 mg orally as well as labetalol 20 mg IV for hypertension. 1300 patient continues to deny chest pain. His troponin is elevated. Discussed this with him. He called his significant other and reported this. Agreeable with consult with Dr. Barkley. 1315 Patient complains of chest pain 11/24, will give Nitro 0.4 mg SL, up to 3 doses. 1330 patient reports resolution of chest pain after [address] Barkley, agreeable with plans to admit to Dr. Preston. Will give Plavix 300 milligrams p.o. as well as Toprol-XL [address] Preston, agreeable with admission to cardiac stepdown. 1415 no chest pain, b/p 103/66, will give NS 1 L per IV. Patient alert and oriented no requests at this time. Toprol has not been given, will hold until blood pressure increased. 1425 patient taken to cardiac step down, no chest pain. Initial ECG Impression Date: Feb 15, 2021 Initial ECG Impression Time: 12:12 Initial ECG Rate: 62 Initial ECG Rhythm: Normal Sinus Initial ECG Intervals: Normal Initial ECG Intervals IL 173, QRSD 102, QT 403, QTc 410. Crystal P 60, QRS 65, T 27 Initial ECG Impression: Normal Initial ECG Comparisson: Unchanged Diagnostic Imaging Diagonstic Imaging: Xray Plain Films/CT/US/NM/MRI: chest Comments NAME: SHIRAZ HAAS [facility] REC#: [id number] PT STATUS: REG ER : 1965 PHYSICIAN: AMOS LORD ADMIT DATE: 02/15/21/ER Draft Date of Exam:02/15/21 CHEST 1 VIEW, AP/PA ONLY INDICATION: Chest pain. Frontal chest obtained at 12:35 p.m. and compared to 01/13/2021. Heart is normal in size. Aorta is tortuous. Mediastinal silhouette is otherwise normal. The lungs are clear. There is no pneumothorax or pleural fluid. IMPRESSION: No acute process in the chest. Compared to the prior study of 01/13/2021, the bibasilar infiltrates appear to have resolved. Dictated on workstation # [id number] Dict: 02/15/21 1236 Trans: 02/15/21 1239 [facility] [id number] Interpreted by: DAVIN HUIZAR MD Electronically signed by: Departure Impression Primary Impression: Chest pain Qualified Codes: R07.9 - Chest pain, unspecified Additional Impression: Non-STEMI (non-ST elevated myocardial infarction) Disposition: ADMITTED INPATIENT Condition: Stable Departure-Patient Inst. Referrals: TIMOTHY MATAMOROS DO (PCP/Family) Primary Care Physician Copy Copies To 1: TIMOTHY MATAMOROS AMY ARNP Feb 15, 2021 12:26
[2021-02-15 12:28] LABS: BASOPHILS # (AUTO) 0.1 10^3/uL (0.0-0.1); BASOPHILS % (AUTO) 1 % (0-10); EOSINOPHILS # (AUTO) 0.1 10^3/uL (0.0-0.3); EOSINOPHILS % (AUTO) 1 % (0-10); HEMATOCRIT 43 % (40-54); HEMOGLOBIN 14.6 g/dL (13.3-17.7); LYMPHOCYTES # (AUTO) 2.8 10^3/uL (1.0-4.0); LYMPHOCYTES % (AUTO) 44 % (12-44); MEAN CORPUSCULAR HEMOGLOBIN 30 pg (25-34); MEAN CORPUSCULAR HGB CONC 34 g/dL (32-36); MEAN CORPUSCULAR VOLUME 89 fL (80-99); MEAN PLATELET VOLUME 7.9 fL (9.0-12.2); MONOCYTES # (AUTO) 0.6 10^3/uL (0.0-1.0); MONOCYTES % (AUTO) 9 % (0-12); NEUTROPHILS # (AUTO) 2.8 10^3/uL (1.8-7.8); NEUTROPHILS % (AUTO) 44 % (42-75); PLATELET COUNT 303 10^3/uL (130-400); WHITE BLOOD COUNT 6.3 10^3/uL (4.3-11.0)
[2021-02-15] MEDS ORDERED: LABETALOL HCL 20 MG/4 ML VIAL IV ONE (12:30)
[2021-02-15] MEDS ORDERED: ASPIRIN 81 MG CHEW (CHILDREN'S ASA) PO ONE (12:30)
--- NOTE | 2021-02-15 12:39 | Diagnostic Imaging Report ---
INDICATION: Chest pain. Frontal chest obtained at 12:35 p.m. and compared to 01/13/2021. Heart is normal in size. Aorta is tortuous. Mediastinal silhouette is otherwise normal. The lungs are clear. There is no pneumothorax or pleural fluid. IMPRESSION: No acute process in the chest. Compared to the prior study of 01/13/2021, the bibasilar infiltrates appear to have resolved. Dictated by: Dictated on workstation # [id number]
[2021-02-15 12:41] LABS: ALBUMIN 4.1 GM/DL (3.2-4.5); POTASSIUM 3.8 MMOL/L (3.6-5.0)
[2021-02-15 12:42] LABS: CALCIUM 9.8 MG/DL (8.5-10.1)
[2021-02-15 12:43] LABS: TOTAL PROTEIN 7.6 GM/DL (6.4-8.2)
[2021-02-15 12:45] LABS: BILIRUBIN,TOTAL 0.3 MG/DL (0.1-1.0); INR 0.8 (0.8-1.4); PROTHROMBIN TIME PATIENT 11.8 SEC (12.2-14.7)
[2021-02-15 12:47] LABS: CREATININE SERUM 0.89 MG/DL (0.60-1.30)
[2021-02-15] MEDS ORDERED: NITROGLYCERIN 0.4 MG SL TABS BTL 25'S SL STA (13:25)
[2021-02-15] MEDS ORDERED: meTOproloL SUCCINATE 50 MG (TOPROL XL) TAB PO STA (14:22)
[2021-02-15] MEDS ORDERED: CLOPIDOGREL 300 MG (PLAVIX) TABLET PO STA (14:22)
[2021-02-15] MEDS ORDERED: NS IV 1000 ML 1,000 ML IV SCH ×3 (14:45→18:00)
[2021-02-15] MEDS ORDERED: NS IV 1000 ML 1,000 ML ONE ×2 (15:25→16:06)
[2021-02-15 16:00] VITALS: BP 161/83
[2021-02-15] MEDS ORDERED: ONDANSETRON 4 MG/2 ML (SDV) Z0FRAN IVP PRN (16:00)
[2021-02-15] MEDS ORDERED: NITROGLYCERIN 0.4 MG SL TABS BTL 25'S SL PRN (16:00)
[2021-02-15] MEDS ORDERED: ACETAMINOPHEN 325 MG TABLET PO PRN (16:00)
[2021-02-15] MEDS ORDERED: fentaNYL INJ 100 MCG/2 ML AMP ONE (16:06)
[2021-02-15] MEDS ORDERED: LIDOCAINE 1% INJ 20 ML 20 ML VIAL ONE (16:06)
[2021-02-15] MEDS ORDERED: MIDAZOLAM 5 MG/5 ML (VERSED) VIAL ONE (16:06)
[2021-02-15] MEDS ORDERED: HEParin (CATH LAB) 2,000 ML IV ONE (16:06)
--- NOTE | 2021-02-15 17:01 | Consultation-Cardiology ---
HPI-Cardiology Cardiology Consultation: Date of Consultation 02/15/21 Time Seen by a Provider: 16:40 Date of Admission Attending Physician Emiliana Preston MD Admitting Physician Perry Lanier DO Consulting Physician DEMETRIS WATKINS MD, MA, FACP, FACC, [facility] [place], CCDS Physician requesting Cardiology consult: Dr Prestno HPI: Chief Complaint: CC: Chest pain HPI 55 yo man with several days of intermittent chest pain, more frequent and longer episodes since yesterday. Pain is midsternal pressure, moderate, radiating to wards the L shoulder, w/o aggravating or relieving factors, not associated with shortness of breath or palp or syncope. Denies shortness of breath. No n/v/d. No swelling Review of Systems-Cardiology Review of Systems Constitutional: No malaise, No tiredness Eyes: No vision change Ears/Nose/Throat: No ear discharge, No nasal drainage, No recent hearing loss Respiratory: As described under HPI Cardiovascular: As described under HPI Gastrointestinal: As described under HPI Genitourinary: No dysuria, No hematuria Musculoskeletal: No back pain, No joint pain Skin: No rash, No ulcerations Psychiatric/Neurological: No seizure, No focal weakness, No syncope Hematologic: No bleeding abnormalities All Other Systems Reviewed Negative Unless Noted: Yes HWN-Smtjgj-Uzudmo Hx Patient Social History Smoking Status: Light Tobacco Smoker Have you traveled recently?: No Alcohol Use?: Yes Pt feels they are or have been: No Tobacco type used: Cigarettes Past Medical History PMH As described under Assessment. Family Medical History Family Medical History: Notes a h/o "heart disease" in 2 siblings but does not knwo any details Allergies and Home Medications Allergies Coded Allergies: No Known Drug Allergies (Unverified , 06/02/20) Home Medications Azithromycin 500 Mg Tablet, 500 MG PO DAILY Prescribed by: GERMAIN ONEILL on 01/14/2139 Benzonatate 100 Mg Capsule, 200 MG PO TID Prescribed by: GERMAIN ONEILL on 01/14/2140 Dexamethasone 6 Mg Tablet, 6 MG PO DAILY Prescribed by: GERMAIN ONEILL on 01/14/2139 Patient Home Medication List Home Medication List Reviewed: Yes Physical Exam-Cardiology Physical Exam Vital Signs/I&O 02/15/21 02/15/21 14:42 15:34 Temp 36.8 Pulse 68 65 Resp 20 20 B/P (MAP) 203/127 (152) 139/106 Pulse Ox 98 99 O2 Delivery Room Air Capillary Refill : Less Than 3 Seconds Constitutional: AAO x 3, well-developed, well-nourished HEENT: EOMI, hearing is well preserved; No xanthelasmas are seen Neck: carotid pulses are 2 + bilaterally, with good upstrokes Respiratory: No accessory muscle use; other (fair to good, bilateral air entry) Cardiovascular: regular rate-rhythm, S1 and S2, systolic murmur (soft GEETHA at card base) Gastrointestinal: No tender; soft; No guarding, No rebound; audible bowel sounds Extremities: No clubbing, No cyanosis, No significant edema Neurologic/Psychiatric: oriented x 3, other (moves all his limbs equally) Skin: No rash on exposed areas, No ulcerations on exposed areas Data Review Labs Laboratory Tests 02/15/21 12:20: White Blood Count 6.3, Red Blood Count 4.80, Hemoglobin 14.6, Hematocrit 43, Mean Corpuscular Volume 89, Mean Corpuscular Hemoglobin 30, Mean Corpuscular Hemoglobin Concent 34, Red Cell Distribution Width 12.8, Platelet Count 303, Mean Platelet Volume 7.9L, Immature Granulocyte % (Auto) 1, Neutrophils (%) (Auto) 44, Lymphocytes (%) (Auto) 44, Monocytes (%) (Auto) 9, Eosinophils (%) (Auto) 1, Basophils (%) (Auto) 1, Neutrophils # (Auto) 2.8, Lymphocytes # (Auto) 2.8, Monocytes # (Auto) 0.6, Eosinophils # (Auto) 0.1, Basophils # (Auto) 0.1, Immature Granulocyte # (Auto) 0.1, Prothrombin Time 11.8L, INR Comment 0.8, Activated Partial Thromboplast Time 28, Sodium Level 138, Potassium Level 3.8, Chloride Level 104, Carbon Dioxide Level 25, Anion Gap 9, Blood Urea Nitrogen 12, Creatinine 0.89, Estimat Glomerular Filtration Rate 89, BUN/Creatinine Ratio 13, Glucose Level 125H, Calcium Level 9.8, Corrected Calcium 9.7, Magnesium Level 2.0, Total Bilirubin 0.3, Aspartate Amino Transf (AST/SGOT) 19, Alanine Aminotransferase (ALT/SGPT) 28, Alkaline Phosphatase 90, Myoglobin 46.4, Troponin I 0.119H, B-Type Natriuretic Peptide 13.1, Total Protein 7.6, Albumin 4.1 02/15/21 16:20: Laboratory Tests 02/15/21 12:20 A/P-Cardiology Assessment/Admission Diagnosis Ac NSTEMI Tobacco user (2 cigarettes per week) Discussion and Recomendations * Given evidence of ACS and continuing, intermittent symptoms, card cath is recommended * We discussed the rationale, procedure, risks, benefits, potential complications and alternatives of card cath and possible ad hoc cor intervention with him. He understands and provides informed consent * He has been treated with DAPT and beta-mallika. Further recs will be based on cath findings Clinical Quality Measures AMI/AHF: ASA po Prior to arrival: DEMETRIS Borrego MD FACP [facility] CCDS Feb 15, 2021 17:01
--- NOTE | 2021-02-15 17:59 | Cardiology Discharge Summary ---
Diagnosis/Chief Complaint Date of Admission Feb 15, 2021 at 13:30 Date of Discharge Admission Diagnosis Final/Discharge Diagnosis Ac NSTEMI - Card cath on 02/15/21: up to 90% prox LAD, 60% prox and 90% mid LCX, 50% prox and 90% mid RCA stenoses, LVEDP 11 mmHg, LVEF 50-55% Tobacco user (2 cigarettes per week) Chief Complaint/HPI Chief Complaint/HPI HPI 55 yo man with several days of intermittent chest pain, more frequent and longer episodes since yesterday. Pain is midsternal pressure, moderate, radiating towards the L shoulder, w/o aggravating or relieving factors, not associated with shortness of breath or palp or syncope. Denies shortness of breath. No n/v/d. No swelling Cath showed multivessel CAD. CABG appears to be the best treatment option. I spoke with Dr Joseph at [facility]. He has kindly accepted the patient in transfer for CABG. I spoke with patient and his daughter. Discharge Summary Hospital Course Pending Labs Laboratory Tests 02/15/21 12:20: White Blood Count 6.3, Red Blood Count 4.80, Hemoglobin 14.6, Hematocrit 43, Mean Corpuscular Volume 89, Mean Corpuscular Hemoglobin 30, Mean Corpuscular Hemoglobin Concent 34, Red Cell Distribution Width 12.8, Platelet Count 303, Mean Platelet Volume 7.9, Immature Granulocyte % (Auto) 1, Neutrophils (%) (Auto) 44, Lymphocytes (%) (Auto) 44, Monocytes (%) (Auto) 9, Eosinophils (%) (Auto) 1, Basophils (%) (Auto) 1, Neutrophils # (Auto) 2.8, Lymphocytes # (Auto) 2.8, Monocytes # (Auto) 0.6, Eosinophils # (Auto) 0.1, Basophils # (Auto) 0.1, Immature Granulocyte # (Auto) 0.1, Prothrombin Time 11.8, INR Comment 0.8, Act ivated Partial Thromboplast Time 28, Sodium Level 138, Potassium Level 3.8, Chloride Level 104, Carbon Dioxide Level 25, Anion Gap 9, Blood Urea Nitrogen 12, Creatinine 0.89, Estimat Glomerular Filtration Rate 89, BUN/Creatinine Ratio 13, Glucose Level 125, Calcium Level 9.8, Corrected Calcium 9.7, Magnesium Level 2.0, Total Bilirubin 0.3, Aspartate Amino Transf (AST/SGOT) 19, Alanine Aminotransferase (ALT/SGPT) 28, Alkaline Phosphatase 90, Myoglobin 46.4, Troponin I 0.119, B-Type Natriuretic Peptide 13.1, Total Protein 7.6, Albumin 4.1 02/15/21 16:20: Troponin I 0.997 Discussion & Recommendations Home Medications Reviewed patient Home Medication Reconciliation performed by pharmacy medication reconciliations screening technician and/or nursing. Patients Allergies have been reviewed. Discharge Home Medications: Reviewed and agree with Discharge Medication list on patient's Discharge Instruction sheet Clinical Quality Measures AMI/AHF: ASA po Prior to arrival: DEMETRIS Borrego MD FACP [facility] CCDS Feb 15, 2021 17:59
[2021-02-15] MEDS ORDERED: HEParin DRIP 25000 UNIT/500ML 500 ML IV SCH (18:00)
[2021-02-15] MEDS ORDERED: HEParin 1000 UNIT/ML (10ML VIAL) FOR BOLUS IV PRN (18:00)
[2021-02-15] MEDS ORDERED: PATIENT MAY USE OWN MEDS, ALL PO SCH (18:00)
[2021-02-15] MEDS ORDERED: HEParin DRIP 25000 UNIT/500ML 500 ML IV ONE (18:40)
[2021-02-15 19:35] VITALS: BP 145/102
--- NOTE | 2021-02-15 23:22 | CARDIAC CATHETERIZATION ---
DATE OF SERVICE: 02/15/2021 CARDIAC CATHETERIZATION REPORT The patient is a 55-year-old gentleman who has had intermittent chest discomfort for several days, which has been more frequent and more intense in the last 24 to 48 hours. He presented to the emergency room today and troponin was mildly elevated, indicative of a small non-ST elevation myocardial infarction. Cardiac catheterization was carried out after having obtained an informed consent. DESCRIPTION OF PROCEDURE: He was brought to the cardiac catheterization laboratory. Right groin was prepared and draped in the usual sterile fashion. Lidocaine 1% was used for local anesthesia. Modified Seldinger technique used to advance a 5-Surinamese sheath in the right femoral artery, 5-Surinamese JL4 catheter for left coronary angiography, 5-Surinamese JR4 catheter was used for right coronary angiography, 5-Surinamese pigtail catheter was used for left heart catheterization and left ventricular angiography. Angiography of the right femoral artery was carried out through the sheath and Mynx was used to achieve hemostasis following sheath removal. HEMODYNAMICS: Left ventricular end-diastolic pressure following coronary angiography was 11 mmHg. There was no significant pressure gradient on pullback across the aortic valve. Ascending aortic pressure was 126/70 with a mean of 59 mmHg. CORONARY ANGIOGRAPHY: Left main coronary artery is free of significant disease. Left anterior descending artery has proximal calcification. There is a long proximal stenotic segment that extends from the ostium to the mid left anterior descending artery and constitute up to 90% stenosis. The left circumflex artery has approximately 70% proximal and 90% mid vessel stenosis. Right coronary artery is dominant and has approximately 50% proximal and 90% mid vessel stenosis. LEFT VENTRICULAR ANGIOGRAPHY: Left ventricular angiography was carried out in the right anterior oblique projection. Global left ventricular systolic function is well preserved. Left ventricular ejection fraction is 50 to 55%. CONCLUSIONS: 1. Multivessel coronary artery disease including up to 90% proximal left anterior descending artery, 90% mid left circumflex, and 90% mid right coronary artery stenoses. Right coronary artery is dominant. 2. Well preserved global left ventricular systolic function with ejection fraction of 50 to 55%. 3. Left ventricular end-diastolic pressure is 11 mmHg. DISCUSSION AND RECOMMENDATIONS: Based on results of the study, coronary artery bypass surgery appears to be the best treatment option. We have spoken with Dr. Joseph of the cardiovascular surgical services at [facility] and he has kindly accepted the patient in transfer. Arrangements are being made at the time of this dictation. Job ID: [id number] DocumentID: [id number] Dictated Date: 02/15/2021 17:50:53 Elevator Examiner And Adjuster Date: 02/15/2021 23:21:43 Dictated By: DEMETRIS WATKINS MD, MA, FACP, FACC,
[2021-02-16] MEDS ORDERED: CLOPIDOGREL 75 MG (PLAVIX) TABLET PO SCH (09:00)
[2021-02-16] MEDS ORDERED: ASPIRIN 81 MG CHEW (CHILDREN'S ASA) PO SCH (09:00)
[2021-02-16] MEDS ORDERED: meTOproloL SUCCINATE 50 MG (TOPROL XL) TAB PO SCH (09:00)
== END 2021-02-15 21:35 | disposition short-term general hospital (02) | DRG 282 ==
LOC: EDUNIT# 12:02 → ER 12:03 → CSD 13:30
PROVIDERS: ADMIT Internal Medicine; ATTEND Internal Medicine
PROC: 4A023N7 Measurement of Cardiac Sampling and Pressure, Left Heart, Percutaneous Approach (ICD-10-PCS; principal; 2021-02-15)
PROC: B2111ZZ Fluoroscopy of Multiple Coronary Arteries using Low Osmolar Contrast (ICD-10-PCS; 2021-02-15)
PROC: B2151ZZ Fluoroscopy of Left Heart using Low Osmolar Contrast (ICD-10-PCS; 2021-02-15)
DX: I21.4 Non-ST elevation (NSTEMI) myocardial infarction (principal); I25.10 Atherosclerotic heart disease of native coronary artery without angina pectoris; I10 Essential (primary) hypertension; F17.210 Nicotine dependence, cigarettes, uncomplicated; Z82.49 Family history of ischemic heart disease and other diseases of the circulatory system
CPT/HCPCS: 36415; 71045; 80053; 83735; 83874; 83880; 84484; 85025; 85610; 85730; 93005; 93041; 93458

== ENCOUNTER 2021-02-22 12:07 | Emergency (ER) | payer BC ==
[~2021-02-22] VITALS: Ht 167 cm; Wt 92.0 kg
--- NOTE | 2021-02-22 12:39 | ED General ---
General Chief Complaint: General Problems/Pain Stated Complaint: NUMBNESS,CP Nursing Triage Note: ARRIVED VIA AMB WITH COMPLAINTS OF WAKING UP FEELING NUMB ALL OVER. PT STATES HER WAS RECENTLY DISCHARGD FROM [facility] AFTER HAVING MULTIPLE CARDIAC STENTS PLACED. Source of Information: Patient Exam Limitations: No Limitations History of Present Illness Date Seen by Provider: Feb 22, 2021 Time Seen by Provider: 12:25 Initial Comments Patient is a 55-year-old who presents to the emergency department today with a chief complaint of feeling generally weak and feeling "numb all over". Patient states that he was recently admitted to the hospital with acute myocardial infarction. Transferred to [place] for possible work-up for CABG. Patient tells us that he had multiple stents placed. Started on several new medications for his heart as well as for diabetes. Patient states this morning he woke up "feeling good". He states he had breakfast and shortly afterwards began to feel fatigued. He states he needed to take a nap. When he laid back down he describes jerking awake and suddenly feeling numb and tingly all over from the tips of his toes to his chest he denies any recent illness, fevers, chills, loss of taste or smell, congestion. No chest pain, pressure tightness or heaviness. He is not short of breath. No abdominal pain, nausea vomiting diarrhea or other complaints. No swelling in his legs. Entire review of systems is negative except for the feeling of "numbness". Patient states is actually a little improved at this time. Patient is Covid vaccinated x1 and is awaiting to get his second vaccination. Timing/Duration: 1-3 Hours Severity: Moderate Associated Systoms: Malaise, Other ("Numbness") Allergies and Home Medications Allergies Coded Allergies: No Known Drug Allergies (Unverified , 06/02/20) Patient Home Medication List Home Medication List Reviewed: Yes Azithromycin (Zithromax) 500 Mg Tablet, 500 MG PO DAILY Prescribed by: GERMAIN ONEILL on 01/14/21 004 Benzonatate (Tessalon Perles) 100 Mg Capsule, 200 MG PO TID Prescribed by: GERMAIN ONEILL on 01/14/21 004 Cyclobenzaprine HCl (Cyclobenzaprine HCl) 10 Mg Tablet, (Reported) Entered as Reported by: NITESH RUELAS on 06/02/20 1311 Dexamethasone (Decadron) 6 Mg Tablet, 6 MG PO DAILY Prescribed by: GERMAIN ONEILL on 01/14/21 0040 Meloxicam (Meloxicam) 15 Mg Tablet, (Reported) Entered as Reported by: NITESH RUELAS on 06/02/20 1311 Ondansetron HCl (Ondansetron HCl) 4 Mg Tablet, (Reported) Entered as Reported by: NITESH RUELAS on 06/02/20 1311 Prednisone (Prednisone) 10 Mg Tab, (Reported) Entered as Reported by: NITESH RUELAS on 06/02/20 1311 Sulindac (Sulindac) 150 Mg Tablet, (Reported) Entered as Reported by: NITESH RUELAS on 06/02/20 1311 Tramadol HCl (Tramadol HCl) 50 Mg Tablet, (Reported) Entered as Reported by: NITESH RUELAS on 06/02/20 1311 Review of Systems Review of Systems Constitutional: see HPI EENTM: no symptoms reported Respiratory: no symptoms reported Cardiovascular: no symptoms reported Gastrointestinal: no symptoms reported Genitourinary: no symptoms reported Musculoskeletal: no symptoms reported Skin: no symptoms reported Psychiatric/Neurological: Numbness, Paresthesia, Weakness All Other Systems Reviewed Negative Unless Noted: Yes Past Zfurefu-[id number]-[id number] Hx Patient Social History Tobacco Use?: No Smoking Status: Never a Smoker Substance use?: No Alcohol Use?: No Immunizations Up To Date First/Initial COVID19 Vaccinat: JANUARY 2021 Seasonal Allergies Seasonal Allergies: No Past Medical History Surgeries: No Respiratory: Yes (COVID-19 12/2019) Cardiac: No Neurological: No Genitourinary: No Gastrointestinal: No Musculoskeletal: No Endocrine: No HEENT: No Cancer: No Psychosocial: No Integumentary: No Blood Disorders: No Physical Exam Vital Signs Vital Signs - First Documented 02/22/21 12:07 Temp 36.3 Pulse 83 Resp 16 B/P (MAP) 149/80 (103) Pulse Ox 97 O2 Delivery Room Air Capillary Refill : Less Than 3 Seconds Height, Weight, BMI Height: '" Weight: lbs. oz. kg; 32.00 BMI Method: General Appearance: No Apparent Distress, WD/WN Eyes: Bilateral Eye Normal Inspection, Bilateral Eye PERRL, Bilateral Eye EOMI HEENT: PERRL/EOMI Neck: Normal Inspection Respiratory: Lungs Clear, Normal Breath Sounds, No Accessory Muscle Use, No Respiratory Distress Cardiovascular: Regular Rate, Rhythm, Normal Peripheral Pulses Gastrointestinal: Normal Bowel Sounds, Non Tender, Soft Extremity: Normal Capillary Refill, Normal Inspection, Normal Range of Motion Neurologic/Psychiatric: Alert, Oriented x3, No Motor/Sensory Deficits (5/5 strength all muscle), Normal Mood/Affect Skin: Normal Color, Warm/Dry Progress/Results/Core Measures Suspected Sepsis SIRS Temperature: Pulse: 83 Respiratory Rate: 16 Laboratory Tests 02/22/21 12:28: White Blood Count 8.3 Blood Pressure 149 /80 Mean: 103 Laboratory Tests 02/22/21 12:28: Creatinine 0.94, Platelet Count 247 Results/Orders Lab Results Laboratory Tests Test 02/22/21 12:24 02/22/21 12:28 Range/Units Glucometer 109 70-110 MG/DL White Blood Count 8.3 4.3-11.0 10^3/uL Red Blood Count 4.42 4.30-5.52 10^6/uL Hemoglobin 13.5 13.3-17.7 g/dL Hematocrit 40 40-54 % Mean Corpuscular Volume 90 80-99 fL Mean Corpuscular Hemoglobin 31 25-34 pg Mean Corpuscular Hemoglobin Concent 34 32-36 g/dL Red Cell Distribution Width 12.5 10.0-14.5 % Platelet Count 247 130-400 10^3/uL Mean Platelet Volume 8.2 L 9.0-12.2 fL Immature Granulocyte % (Auto) 1 % Neutrophils (%) (Auto) 41 L 42-75 % Lymphocytes (%) (Auto) 41 12-44 % Monocytes (%) (Auto) 11 0-12 % Eosinophils (%) (Auto) 6 0-10 % Basophils (%) (Auto) 1 0-10 % Neutrophils # (Auto) 3.4 1.8-7.8 10^3/uL Lymphocytes # (Auto) 3.4 1.0-4.0 10^3/uL Monocytes # (Auto) 0.9 0.0-1.0 10^3/uL Eosinophils # (Auto) 0.5 H 0.0-0.3 10^3/uL Basophils # (Auto) 0.0 0.0-0.1 10^3/uL Immature Granulocyte # (Auto) 0.1 0.0-0.1 10^3/uL Sodium Level 137 135-145 MMOL/L Potassium Level 3.5 L 3.6-5.0 MMOL/L Chloride Level 100 98-107 MMOL/L Carbon Dioxide Level 27 21-32 MMOL/L Anion Gap 10 5-14 MMOL/L Blood Urea Nitrogen 29 H 7-18 MG/DL Creatinine 0.94 0.60-1.30 MG/DL Estimat Glomerular Filtration Rate 84 BUN/Creatinine Ratio 31 Glucose Level 107 H 70-105 MG/DL Calcium Level 9.3 8.5-10.1 MG/DL Magnesium Level 1.9 1.6-2.4 MG/DL My Orders Orders - ABDULAZIZ MAYES MD Ed Iv/Invasive Line Start (02/22/21 12:34) Cbc With Automated Diff (02/22/21 12:34) Basic Metabolic Panel (02/22/21 12:34) Magnesium (02/22/21 12:34) Ekg Tracing (02/22/21 12:34) Vital Signs/I&O 02/22/21 12:07 Temp 36.3 Pulse 83 Resp 16 B/P (MAP) 149/80 (103) Pulse Ox 97 O2 Delivery Room Air Capillary Refill : Less Than 3 Seconds Blood Pressure Mean: 103 Progress Note : Time: 13:20 Progress Note Patient resting comfortably in the ER. No continuing complaints of pain or paresthesia. Adamantly denied any chest pain, pressure, tightness or other discomfort. Labs reviewed and normal. VS continue to be great. Patient will be sent home to follow up with his primary care doctor. All questions have been sought and answered. Patient is stable for discharge. ECG Initial ECG Impression Date: Feb 22, 2021 Initial ECG Impression Time: 12:20 Initial ECG Rate: 77 Initial ECG Rhythm: Normal Sinus Initial ECG Intervals: Normal Initial ECG Impression: Nonspecific Changes (inferior ST changes; no elevation) Departure Impression Primary Impression: Paresthesia Disposition: 01 HOME, SELF-CARE Condition: Stable Departure-Patient Inst. Decision time for Depature: 13:22 Referrals: TIMOTHY MATAMOROS DO (PCP/Family) Primary Care Physician Patient Instructions: Paresthesia (DC) Add. Discharge Instructions: Continue to take your daily medications as prescribed. Follow-up with your primary care physician. Return to the emergency room for any new, concerning or emergent complaints. Please be sure and get your second Covid vaccination. ABDULAZIZ MAYES MD Feb 22, 2021 12:38
[2021-02-22 12:42] LABS: BASOPHILS % (AUTO) 1 % (0-10); EOSINOPHILS # (AUTO) 0.5 10^3/uL (0.0-0.3); EOSINOPHILS % (AUTO) 6 % (0-10); HEMATOCRIT 40 % (40-54); HEMOGLOBIN 13.5 g/dL (13.3-17.7); LYMPHOCYTES # (AUTO) 3.4 10^3/uL (1.0-4.0); LYMPHOCYTES % (AUTO) 41 % (12-44); MEAN CORPUSCULAR HEMOGLOBIN 31 pg (25-34); MEAN CORPUSCULAR HGB CONC 34 g/dL (32-36); MEAN CORPUSCULAR VOLUME 90 fL (80-99); MEAN PLATELET VOLUME 8.2 fL (9.0-12.2); MONOCYTES # (AUTO) 0.9 10^3/uL (0.0-1.0); MONOCYTES % (AUTO) 11 % (0-12); NEUTROPHILS # (AUTO) 3.4 10^3/uL (1.8-7.8); NEUTROPHILS % (AUTO) 41 % (42-75); PLATELET COUNT 247 10^3/uL (130-400); WHITE BLOOD COUNT 8.3 10^3/uL (4.3-11.0)
[2021-02-22 12:47] LABS: POTASSIUM 3.5 MMOL/L (3.6-5.0)
[2021-02-22 12:48] LABS: CALCIUM 9.3 MG/DL (8.5-10.1)
[2021-02-22 12:52] LABS: CREATININE SERUM 0.94 MG/DL (0.60-1.30)
[2021-02-22 12:55] LABS: MAGNESIUM 1.9 MG/DL (1.6-2.4)
[2021-02-22 13:35] VITALS: BP 110/73
== END 2021-02-22 13:35 | disposition home or self-care (01) ==
LOC: EDUNIT# 12:07 → ER 12:09
DX: R20.2 Paresthesia of skin (principal)
CPT/HCPCS: 36415; 80048; 82947; 83735; 85025; 93005

== ENCOUNTER 2021-03-03 16:54 | Emergency (ER) | payer BC ==
[~2021-03-03] VITALS: Ht 167 cm; Wt 92.0 kg
[2021-03-03] MEDS ORDERED: ASPIRIN 81 MG CHEW (CHILDREN'S ASA) PO ONE (17:30)
[2021-03-03 17:42] LABS: BASOPHILS # (AUTO) 0.1 10^3/uL (0.0-0.1); BASOPHILS % (AUTO) 1 % (0-10); EOSINOPHILS # (AUTO) 0.8 10^3/uL (0.0-0.3); EOSINOPHILS % (AUTO) 10 % (0-10); HEMATOCRIT 39 % (40-54); HEMOGLOBIN 13.7 g/dL (13.3-17.7); LYMPHOCYTES # (AUTO) 1.7 10^3/uL (1.0-4.0); LYMPHOCYTES % (AUTO) 20 % (12-44); MEAN CORPUSCULAR HEMOGLOBIN 31 pg (25-34); MEAN CORPUSCULAR HGB CONC 35 g/dL (32-36); MEAN CORPUSCULAR VOLUME 89 fL (80-99); MEAN PLATELET VOLUME 7.8 fL (9.0-12.2); MONOCYTES # (AUTO) 0.5 10^3/uL (0.0-1.0); MONOCYTES % (AUTO) 6 % (0-12); NEUTROPHILS # (AUTO) 5.2 10^3/uL (1.8-7.8); NEUTROPHILS % (AUTO) 63 % (42-75); PLATELET COUNT 255 10^3/uL (130-400); WHITE BLOOD COUNT 8.2 10^3/uL (4.3-11.0)
--- NOTE | 2021-03-03 17:42 | ED Chest Pain ---
General Chief Complaint: Chest Pain Stated Complaint: CP,COUGH Nursing Triage Note: PT SENT FROM [facility] FOR FURTHER EVALUATION FOR COUGH. STATES COUGH STARTED YESTERDAY AND HAS CP WHEN HE TAKES A DEEP BREATH. PT HAD COVID/PNEUMONIA IN DECEMBER AND A STEMI IN JANUARY. History of Present Illness Date Seen by Provider: Mar 03, 2021 Time Seen by Provider: 17:10 Initial Comments 55-year-old male presents for cough and congestion. He denies chest pain, reports chest congestion but no tightness or pressure. He has been treated here in December for Covid and pneumonia, in early February he had an NSTEMI and required transfer to [place] for stent placement. He did not have a CABG. He reports chest congestion with deep breathing. He was on inhalers in the past, he does not have any at the present time. He denies seasonal allergies. He reports productive cough in the morning. He is not taking a decongestant or cough suppressant. Timing/Duration: 2-3 days Prior CP/Workup: cardiac cath, heart attack ASA po SALAD MAKER: No NTG SL SALAD MAKER: No Associated Symptoms: No fever/chills, No nausea/vomiting, No shortness of breath Allergies and Home Medications Allergies Coded Allergies: No Known Drug Allergies (Unverified , 06/02/20) Patient Home Medication List Home Medication List Reviewed: Yes Azithromycin (Zithromax) 500 Mg Tablet, 500 MG PO DAILY Prescribed by: GERMAIN ONEILL on 01/14/2139 Benzonatate (Tessalon Perles) 100 Mg Capsule, 200 MG PO TID Prescribed by: GERMAIN ONEILL on 01/14/21 004 Cyclobenzaprine HCl (Cyclobenzaprine HCl) 10 Mg Tablet, (Reported) Entered as Reported by: NITESH RUELAS on 06/02/20 131 Dexamethasone (Decadron) 6 Mg Tablet, 6 MG PO DAILY Prescribed by: GERMAIN ONEILL on 01/14/21 004 Meloxicam (Meloxicam) 15 Mg Tablet, (Reported) Entered as Reported by: NITESH RUELAS on 06/02/20 131 Ondansetron HCl (Ondansetron HCl) 4 Mg Tablet, (Reported) Entered as Reported by: NITESH RUELAS on 06/02/20 131 Prednisone (Prednisone) 10 Mg Tab, (Reported) Entered as Reported by: NITESH RUELAS on 06/02/20 1311 Sulindac (Sulindac) 150 Mg Tablet, (Reported) Entered as Reported by: NITESH RUELAS on 06/02/20 1311 Tramadol HCl (Tramadol HCl) 50 Mg Tablet, (Reported) Entered as Reported by: NITESH RUELAS on 06/02/20 1311 Review of Systems Review of Systems Constitutional: no symptoms reported, see HPI Respiratory: See HPI, Cough; Denies Shortness of Air Cardiovascular: See HPI; Denies Chest Pain Gastrointestinal: No Symptoms Reported, See HPI; Denies Nausea, Denies Vomiting All Other Systems Reviewed Negative Unless Noted: Yes Past Acurbnl-Ddpkwp-Imbvuu Hx Patient Social History Tobacco Use?: No Use of E-Cig and/or Vaping dev: No Substance use?: No Alcohol Use?: No Pt feels they are or have been: No Immunizations Up To Date First/Initial COVID19 Vaccinat: JANUARY 2021 Seasonal Allergies Seasonal Allergies: No Past Medical History Surgery/Hospitalization HX: [place] JANUARY 2021 Surgeries: No Respiratory: Yes (COVID-19 12/2019) Cardiac: No Neurological: No Genitourinary: No Gastrointestinal: No Musculoskeletal: No Endocrine: No HEENT: No Cancer: No Psychosocial: No Integumentary: No Blood Disorders: No Family Medical History Reviewed Nursing Family Hx Physical Exam Vital Signs Vital Signs - First Documented 03/03/21 17:10 Temp 36.4 Pulse 83 Resp 20 B/P (MAP) 141/88 (105) Pulse Ox 97 O2 Delivery Room Air Capillary Refill : Less Than 3 Seconds Height, Weight, BMI Height: '" Weight: lbs. oz. kg; 32.00 BMI Method: General Appearance: No Apparent Distress, WD/WN Neck: Full Range of Motion, Normal Inspection, Non Tender, Supple Respiratory: Chest Non Tender, No Accessory Muscle Use, Rhonci; No Wheezing Cardiovascular: Regular Rate, Rhythm, No Edema, No Murmur, Normal Peripheral Pulses Gastrointestinal: Normal Bowel Sounds, Non Tender, Soft Neurologic/Psychiatric: Alert, Oriented x3, No Motor/Sensory Deficits, Normal Mood/Affect Skin: Normal Color, Warm/Dry Progress/Results/Core Measures Results/Orders Lab Results Laboratory Tests Test 03/03/21 17:23 03/03/21 17:34 Range/Units Influenza Type A Antigen NEGATIVE NEGATIVE Influenza Type B Antigen NEGATIVE NEGATIVE White Blood Count 8.2 4.3-11.0 10^3/uL Red Blood Count 4.44 4.30-5.52 10^6/uL Hemoglobin 13.7 13.3-17.7 g/dL Hematocrit 39 L 40-54 % Mean Corpuscular Volume 89 80-99 fL Mean Corpuscular Hemoglobin 31 25-34 pg Mean Corpuscular Hemoglobin Concent 35 32-36 g/dL Red Cell Distribution Width 12.6 10.0-14.5 % Platelet Count 255 130-400 10^3/uL Mean Platelet Volume 7.8 L 9.0-12.2 fL Immature Granulocyte % (Auto) 1 % Neutrophils (%) (Auto) 63 42-75 % Lymphocytes (%) (Auto) 20 12-44 % Monocytes (%) (Auto) 6 0-12 % Eosinophils (%) (Auto) 10 0-10 % Basophils (%) (Auto) 1 0-10 % Neutrophils # (Auto) 5.2 1.8-7.8 10^3/uL Lymphocytes # (Auto) 1.7 1.0-4.0 10^3/uL Monocytes # (Auto) 0.5 0.0-1.0 10^3/uL Eosinophils # (Auto) 0.8 H 0.0-0.3 10^3/uL Basophils # (Auto) 0.1 0.0-0.1 10^3/uL Immature Granulocyte # (Auto) 0.0 0.0-0.1 10^3/uL Prothrombin Time 12.9 12.2-14.7 SEC INR Comment 0.9 0.8-1.4 Activated Partial Thromboplast Time 29 24-35 SEC Sodium Level 135 135-145 MMOL/L Potassium Level 4.0 3.6-5.0 MMOL/L Chloride Level 103 98-107 MMOL/L Carbon Dioxide Level 24 21-32 MMOL/L Anion Gap 8 5-14 MMOL/L Blood Urea Nitrogen 20 H 7-18 MG/DL Creatinine 0.85 0.60-1.30 MG/DL Estimat Glomerular Filtration Rate 94 BUN/Creatinine Ratio 24 Glucose Level 104 70-105 MG/DL Calcium Level 9.4 8.5-10.1 MG/DL Corrected Calcium 9.5 8.5-10.1 MG/DL Magnesium Level 2.0 1.6-2.4 MG/DL Total Bilirubin 0.6 0.1-1.0 MG/DL Aspartate Amino Transf (AST/SGOT) 19 5-34 U/L Alanine Aminotransferase (ALT/SGPT) 23 0-55 U/L Alkaline Phosphatase 74 40-136 U/L Myoglobin 39.0 10.0-92.0 NG/ML Troponin I < 0.028 <0.028 NG/ML Total Protein 7.2 6.4-8.2 GM/DL Albumin 3.9 3.2-4.5 GM/DL My Orders Orders - [facility]AMOS Cbc With Automated Diff (03/03/21 17:19) Magnesium (03/03/21 17:19) Chest 1 View, Ap/Pa Only (03/03/21 17:19) Ekg Tracing (03/03/21 17:19) Comprehensive Metabolic Panel (03/03/21 17:19) Myoglobin Serum (03/03/21 17:19) Protime With Inr (03/03/21 17:19) Partial Thromboplastin Time (03/03/21 17:19) O2 (03/03/21 17:19) Monitor-Rhythm Ecg Trace Only (03/03/21 17:19) Ed Iv/Invasive Line Start (03/03/21 17:19) Troponin I (03/03/21 17:19) Aspirin Chewable Tablet (Baby Aspirin Ch (03/03/21 17:30) Influenza A & B Antigens (03/03/21 17:23) Rx-Albuterol Inhaler (Rx-Ventolin Hfa In (03/03/21 18:17) Albuterol Inhaler (Albuterol) (03/03/21 22:00) Albuterol Inhaler (Albuterol) (03/03/21 18:22) Medications Given in ED Current Medications Medications Dose Ordered Sig/Deja Route Start Time Stop Time Status Last Admin Dose Admin Aspirin 324 mg ONCE ONCE PO 03/03/21 17:30 03/03/21 17:31 DC 03/03/21 17:30 324 MG Vital Signs/I&O 03/03/21 03/03/21 17:10 18:47 Temp 36.4 Pulse 83 76 Resp 20 16 B/P (MAP) 141/88 (105) 117/77 Pulse Ox 97 98 O2 Delivery Room Air Room Air Blood Pressure Mean: 105 Progress Progress Note : Time: 17:10 Progress Note Patient seen and evaluated, will obtain labs, chest x-ray and give aspirin 324 mg orally. 1800 work-up for cardiac negative, chest x-ray showed no signs of pneumonia. Will use inhaler to see if improves respiratory status. SaO2 is remained at 96 to 98%, On room air. 1830 patient has improvement in respiratory congestion after using the inhaler, less rhonchi and no wheezing on auscultation. Discharge instructions and return precautions reviewed. All questions answered Initial ECG Impression Date: Mar 03, 2021 Initial ECG Impression Time: 17:12 Initial ECG Rate: 83 Initial ECG Rhythm: Normal Sinus Initial ECG Intervals: Normal Initial ECG Intervals UT 140, QRSD 85, QT 370, QTc 435. [place] P -6, QRS 37, T 16. Initial ECG Impression: Normal Initial ECG Comparisson: Unchanged Diagnostic Imaging Diagonstic Imaging: Xray Plain Films/CT/US/NM/MRI: chest Comments [place], [place] NAME: SHIRAZ HAAS [facility] REC#: [id number] PT STATUS: REG ER : 1965 PHYSICIAN: AMOS LORD ADMIT DATE: 03/03/21/ER Draft Date of Exam:03/03/21 CHEST 1 VIEW, AP/PA ONLY INDICATION: Chest pain. EXAMINATION: AP view of the chest was obtained. COMPARISON: Study of 02/15/2021. FINDINGS: Heart size and pulmonary vascularity are within normal limits, and the lungs are clear, bilaterally. IMPRESSION: Unremarkable chest. Dictated on workstation # [id number] Dict: 03/03/21 1757 Trans: 03/03/21 175 [facility] [id number] Interpreted by: KARIS HUNTER MD Electronically signed by: Reviewed: Reviewed by Me Departure Impression Primary Impression: URI (upper respiratory infection) Qualified Codes: J06.9 - Acute upper respiratory infection, unspecified Disposition: HOME, SELF-CARE Condition: Improved Departure-Patient Inst. Decision time for Depature: 18:20 Referrals: [facility]/TIMOTHY HENSON DO (PCP/Family) Primary Care Physician Patient Instructions: Viral Upper Respiratory Infection, Adult (DC) Add. Discharge Instructions: Continue to use the inhaler 2 puffs every 4 hours as needed for congestion or cough. Take Mucinex 1 tablet every 12 hours with a full glass of water for cough and congestion. Follow-up with your primary care provider early next week if symptoms are not improving or worsen. Continue take all home medications and keep follow-up appointments as scheduled. Return to the emergency department for new, urgent healthcare needs. All discharge instructions reviewed with patient and/or family. Voiced understanding. AMOS LORD Mar 03, 2021 17:42
[2021-03-03 17:50] LABS: ALBUMIN 3.9 GM/DL (3.2-4.5)
[2021-03-03 17:51] LABS: CALCIUM 9.4 MG/DL (8.5-10.1)
[2021-03-03 17:52] LABS: TOTAL PROTEIN 7.2 GM/DL (6.4-8.2)
[2021-03-03 17:53] LABS: INR 0.9 (0.8-1.4); PROTHROMBIN TIME PATIENT 12.9 SEC (12.2-14.7)
[2021-03-03 17:54] LABS: BILIRUBIN,TOTAL 0.6 MG/DL (0.1-1.0)
[2021-03-03 17:56] LABS: CREATININE SERUM 0.85 MG/DL (0.60-1.30)
--- NOTE | 2021-03-03 17:58 | Diagnostic Imaging Report ---
INDICATION: Chest pain. EXAMINATION: AP view of the chest was obtained. COMPARISON: Study of 02/15/2021. FINDINGS: Heart size and pulmonary vascularity are within normal limits, and the lungs are clear, bilaterally. IMPRESSION: Unremarkable chest. Dictated by: Dictated on workstation # [id number]
[2021-03-03] MEDS ORDERED: RX-ALBUTEROL INHALER 8.5 GM HFA (PROAIR) IH STA (18:17)
[2021-03-03] MEDS ORDERED: RT-ALBUTEROL HFA 8.5 GM INHALER IH ONE (18:22)
[2021-03-03 18:47] VITALS: BP 117/77
[2021-03-03] MEDS ORDERED: RT-ALBUTEROL HFA 8.5 GM INHALER IH SCH (22:00)
== END 2021-03-03 18:47 | disposition home or self-care (01) ==
LOC: EDUNIT# 16:54 → ER 16:55
DX: J06.9 Acute upper respiratory infection, unspecified (principal); I25.2 Old myocardial infarction; Z79.52 Long term (current) use of systemic steroids
CPT/HCPCS: 36415; 71045; 80053; 83735; 83874; 84484; 85025; 85610; 85730; 87804; 93041

== ENCOUNTER 2021-05-12 17:07 | Emergency (ER) | payer BC ==
[~2021-05-12] VITALS: Ht 167.6 cm; Wt 85.7 kg
[~2021-05-12 17:07] MED LIST changes: +CYCL10TA25; -CYCL10TA9
[2021-05-12] MEDS ORDERED: ASPIRIN 81 MG CHEW (CHILDREN'S ASA) PO ONE (17:15)
[2021-05-12 17:46] LABS: BASOPHILS # (AUTO) 0.1 10^3/uL (0.0-0.1); BASOPHILS % (AUTO) 1 % (0-10); EOSINOPHILS # (AUTO) 0.3 10^3/uL (0.0-0.3); EOSINOPHILS % (AUTO) 6 % (0-10); HEMATOCRIT 40 % (40-54); HEMOGLOBIN 13.8 g/dL (13.3-17.7); LYMPHOCYTES # (AUTO) 2.4 10^3/uL (1.0-4.0); LYMPHOCYTES % (AUTO) 41 % (12-44); MEAN CORPUSCULAR HEMOGLOBIN 31 pg (25-34); MEAN CORPUSCULAR HGB CONC 34 g/dL (32-36); MEAN CORPUSCULAR VOLUME 89 fL (80-99); MONOCYTES # (AUTO) 0.4 10^3/uL (0.0-1.0); MONOCYTES % (AUTO) 7 % (0-12); NEUTROPHILS # (AUTO) 2.6 10^3/uL (1.8-7.8); NEUTROPHILS % (AUTO) 46 % (42-75); PLATELET COUNT 237 10^3/uL (130-400); WHITE BLOOD COUNT 5.8 10^3/uL (4.3-11.0)
[2021-05-12 17:57] LABS: INR 0.9 (0.8-1.4); PROTHROMBIN TIME PATIENT 12.9 SEC (12.2-14.7)
--- NOTE | 2021-05-12 18:00 | Diagnostic Imaging Report ---
INDICATION: Chest pain. EXAMINATION: Portable chest at 5:50 PM. Heart size and pulmonary vascularity are normal. Lungs are clear. There are no effusions or pneumothoraces. IMPRESSION: Negative chest. Dictated by: Dictated on workstation # [id number]
[2021-05-12 18:05] LABS: CALCIUM 9.3 MG/DL (8.5-10.1)
[2021-05-12 18:06] LABS: TOTAL PROTEIN 7.2 GM/DL (6.4-8.2)
[2021-05-12 18:08] LABS: BILIRUBIN,TOTAL 0.5 MG/DL (0.1-1.0)
[2021-05-12 18:10] LABS: CREATININE SERUM 0.9 MG/DL (0.60-1.30)
[2021-05-12 18:13] LABS: MAGNESIUM 1.9 MG/DL (1.6-2.4)
--- NOTE | 2021-05-12 18:21 | ED Chest Pain ---
General Chief Complaint: Chest Pain Stated Complaint: CHEST PAIN Nursing Triage Note: Pt arrives via POV from home with c/o chest pain; onset yesterday. Pt reports pain to the central chest without radiation. Pt reports hx of stent placement at [facility]. Pt states he is taking his medication as prescribed. Source: patient Exam Limitations: no limitations (AL ODOM MD) History of Present Illness Date Seen by Provider: May 12, 2021 Time Seen by Provider: 17:18 Initial Comments This 55-year-old gentleman presents to the emergency room with complaints of chest pain that started last night and returned tonight. He has a history of coronary artery disease. He was admitted here in February and transferred to [place] with rather significant multivessel disease. He was advised to have CA BG, but he states CABG was not performed due to difficulty controlling blood sugars with his diabetes. He states his diabetes is now well controlled on Metformin alone. He describes his chest pain as a pressure that is rated as 3/10. He takes Effient, isosorbide mononitrate, Metformin, and atorvastatin. 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 Patient also complains of 2 weeks of pain in the proximal left calf. His primary care provider is Dr. Matamoros. (AL ODOM MD) Allergies and Home Medications Allergies Coded Allergies: No Known Drug Allergies (Unverified , 06/02/20) Patient Home Medication List Home Medication List Reviewed: Yes (AL ODOM MD) Atorvastatin Calcium (Atorvastatin Calcium) 40 Mg Tablet, 40 MG PO, (Reported) Entered as Reported by: AMANDA THAKKAR on 05/12/211850 Last Action: New Order Isosorbide Mononitrate (Isosorbide Mononitrate ER) 30 Mg Tab.er.24h, 30 MG PO, (Reported) Entered as Reported by: AMANDA THAKKAR on 05/12/211850 Last Action: New Order Metformin HCl (Metformin HCl) 500 Mg Tablet, 500 MG PO, (Reported) Entered as Reported by: AMANDA THAKKAR on 05/12/211850 Last Action: New Order Metoprolol Succinate (Metoprolol Succinate) 25 Mg Tab.er.24h, 25 MG PO DAILY, (Reported) Entered as Reported by: AMANDA THAKKAR on 05/12/211850 Last Action: New Order Prasugrel HCl (Prasugrel HCl) 10 Mg Tablet, 10 MG PO, (Reported) Entered as Reported by: AMANDA THAKKAR on 05/12/211850 Last Action: New Order Discontinued Medications Azithromycin (Zithromax) 500 Mg Tablet, 500 MG PO DAILY Discontinued Reason: No Longer Taking Prescribed by: GERMAIN ONEILL on 01/14/2139 Last Action: Discontinued Benzonatate (Tessalon Perles) 100 Mg Capsule, 200 MG PO TID Discontinued Reason: No Longer Taking Prescribed by: GERMAIN ONEILL on 01/14/2140 Last Action: Discontinued Cyclobenzaprine HCl (Cyclobenzaprine HCl) 10 Mg Tablet, (Reported) Discontinued Reason: No Longer Taking Entered as Reported by: NITESH RUELAS on 06/02/201310 Last Action: Discontinued Dexamethasone (Decadron) 6 Mg Tablet, 6 MG PO DAILY Discontinued Reason: No Longer Taking Prescribed by: GERMAIN ONEILL on 01/14/2139 Last Action: Discontinued Meloxicam (Meloxicam) 15 Mg Tablet, (Reported) Discontinued Reason: No Longer Taking Entered as Reported by: NITESH RUELAS on 06/02/201310 Last Action: Discontinued Ondansetron HCl (Ondansetron HCl) 4 Mg Tablet, (Reported) Discontinued Reason: No Longer Taking Entered as Reported by: NITESH RUELAS on 06/02/201310 Last Action: Discontinued Prednisone (Prednisone) 10 Mg Tab, (Reported) Discontinued Reason: No Longer Taking Entered as Reported by: NITESH RUELAS on 06/02/201310 Last Action: Discontinued Sulindac (Sulindac) 150 Mg Tablet, (Reported) Discontinued Reason: No Longer Taking Entered as Reported by: NITESH RUELAS on 06/02/201310 Last Action: Discontinued Tramadol HCl (Tramadol HCl) 50 Mg Tablet, (Reported) Discontinued Reason: No Longer Taking Entered as Reported by: NITESH RUELAS on 06/02/201310 Last Action: Discontinued Review of Systems Review of Systems Constitutional: no symptoms reported EENTM: No Symptoms Reported Respiratory: No Symptoms Reported Cardiovascular: See HPI Gastrointestinal: No Symptoms Reported Genitourinary: No Symptoms Reported Musculoskeletal: see HPI Skin: no symptoms reported Psychiatric/Neurological: No Symptoms Reported Endocrine: No Symptoms Reported Hematologic/Lymphatic: No Symptoms Reported (AL ODOM MD) Past Zmxjths-Jzyjzj-Pvfsmm Hx Patient Social History Tobacco Use?: No Smoking Status: Former Smoker Use of E-Cig and/or Vaping dev: No Substance use?: No Alcohol Use?: No Pt feels they are or have been: No (AL ODOM MD) Immunizations Up To Date Influenza Vaccine Up-to-Date: No; Not Current First/Initial COVID19 Vaccinat: JANUARY 2021 COVID19 Vaccine Sourcer: CNS Responsejoanna (AL ODOM MD) Seasonal Allergies Seasonal Allergies: No (AL OODM MD) Past Medical History Surgery/Hospitalization HX: [place] JANUARY 2021 Surgeries: Yes Coronary Stent Respiratory: Yes (COVID-19 12/2019) Cardiac: Yes Coronary Artery Disease Neurological: No Genitourinary: No Gastrointestinal: No Musculoskeletal: No Endocrine: Yes Diabetes, Non-Insulin dep HEENT: No Cancer: No Psychosocial: No Integumentary: No Blood Disorders: No (AL ODOM MD) Physical Exam Vital Signs Vital Signs - First Documented 05/12/21 17:15 Temp 36.4 Pulse 70 Resp 18 B/P (MAP) 129/79 (96) Pulse Ox 97 O2 Delivery Room Air (ELIZABETH ARENAS) Vital Signs Capillary Refill : Less Than 3 Seconds (AL ODOM MD) Height, Weight, BMI Height: '" Weight: lbs. oz. 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 Skin: Normal Color, Warm/Dry (AL ODOM MD) Progress/Results/Core Measures Results/Orders Lab Results Laboratory Tests Test 05/12/21 17:35 05/12/21 20:43 Range/Units White Blood Count 5.8 4.3-11.0 10^3/uL Red Blood Count 4.51 4.30-5.52 10^6/uL Hemoglobin 13.8 13.3-17.7 g/dL Hematocrit 40 40-54 % Mean Corpuscular Volume 89 80-99 fL Mean Corpuscular Hemoglobin 31 25-34 pg Mean Corpuscular Hemoglobin Concent 34 32-36 g/dL Red Cell Distribution Width 12.1 10.0-14.5 % Platelet Count 237 130-400 10^3/uL Mean Platelet Volume 8.0 L 9.0-12.2 fL Immature Granulocyte % (Auto) 0 % Neutrophils (%) (Auto) 46 42-75 % Lymphocytes (%) (Auto) 41 12-44 % Monocytes (%) (Auto) 7 0-12 % Eosinophils (%) (Auto) 6 0-10 % Basophils (%) (Auto) 1 0-10 % Neutrophils # (Auto) 2.6 1.8-7.8 10^3/uL Lymphocytes # (Auto) 2.4 1.0-4.0 10^3/uL Monocytes # (Auto) 0.4 0.0-1.0 10^3/uL Eosinophils # (Auto) 0.3 0.0-0.3 10^3/uL Basophils # (Auto) 0.1 0.0-0.1 10^3/uL Immature Granulocyte # (Auto) 0.0 0.0-0.1 10^3/uL Prothrombin Time 12.9 12.2-14.7 SEC INR Comment 0.9 0.8-1.4 Activated Partial Thromboplast Time 29 24-35 SEC D-Dimer 0.65 H 0.00-0.49 UG/ML Sodium Level 138 135-145 MMOL/L Potassium Level 4.0 3.6-5.0 MMOL/L Chloride Level 103 98-107 MMOL/L Carbon Dioxide Level 24 21-32 MMOL/L Anion Gap 11 5-14 MMOL/L Blood Urea Nitrogen 18 7-18 MG/DL Creatinine 0.90 0.60-1.30 MG/DL Estimat Glomerular Filtration Rate 88 BUN/Creatinine Ratio 20 Glucose Level 125 H 70-105 MG/DL Calcium Level 9.3 8.5-10.1 MG/DL Corrected Calcium 9.3 8.5-10.1 MG/DL Magnesium Level 1.9 1.6-2.4 MG/DL Total Bilirubin 0.5 0.1-1.0 MG/DL Aspartate Amino Transf (AST/SGOT) 20 5-34 U/L Alanine Aminotransferase (ALT/SGPT) 26 0-55 U/L Alkaline Phosphatase 91 40-136 U/L Myoglobin 51.1 10.0-92.0 NG/ML Troponin I < 0.028 < 0.028 <0.028 NG/ML B-Type Natriuretic Peptide < 10.0 <100.0 PG/ML Total Protein 7.2 6.4-8.2 GM/DL Albumin 4.0 3.2-4.5 GM/DL (ELIZABETH ARENAS) My Orders Orders - ELIZABETH ARENAS Us Venous Lower Ext Lt (05/12/21 19:49) Ed Iv/Invasive Line Start (05/12/21 19:49) (ELIZABETH ARENAS) Medications Given in ED Current Medications Medications Dose Ordered Sig/Deja Route Start Time Stop Time Status Last Admin Dose Admin Aspirin 324 mg ONCE ONCE PO 05/12/21 17:15 05/12/21 17:16 DC 05/12/21 17:37 324 MG Iohexol 100 ml ONCE ONCE IV 05/12/21 18:45 05/12/21 18:46 DC 05/12/21 18:57 100 ML Sodium Chloride 100 ml ONCE ONCE IV 05/12/21 18:45 05/12/21 18:46 DC 05/12/21 18:57 80 ML (ELIZABETH ARENAS) Vital Signs/I&O 05/12/21 05/12/21 17:15 17:15 Temp 36.4 Pulse 70 Resp 18 B/P (MAP) 129/79 (96) Pulse Ox 97 96 O2 Delivery Room Air Room Air (ELIZABETH ARENAS) Blood Pressure Mean: 96 Progress Progress Note #1: Time: 18:21 Progress Note Chest pressure has now dissipated. He denies any discomfort at all at this time. He received aspirin. No nitroglycerin was given as he is already on isosorbide mononitrate and his systolic blood pressures were only in the 120s. Progress Note #2: Time: 18:28 Progress Note Troponin was negative. D-dimer is a bit elevated. In the context of his left calf pain, this needs to be pursued further. Will obtain a CT angiogram of the chest and a 4-hour troponin for further evaluation. Care is being transitioned to Dr. Arenas at this time. (AL ODOM MD) Progress Note #1: Progress Note Assumed care of the patient at shift change. He is awaiting a CT angiogram of the chest. He will also receive a 4-hour troponin evaluation at 1935. Patient is stable at this time. I agree with the above documented history and physical exam. Progress Note #2: Time: 19:[address] angiogram unremarkable. Ultrasound is still in house and we have asked him to go ahead and collect a venous Doppler on the left lower extremity to rule out DVT. If this is negative then we did not put the patient on blood thinners. Patient agreed with this plan. (ELIZABETH ARENAS) Initial ECG Impression Date: May 12, 2021 Initial ECG Impression Time: 17:18 Initial ECG Rate: 69 Initial ECG Rhythm: Normal Sinus Comment Normal sinus rhythm. Minimal nondiagnostic ST changes. No STEMI. No abnormal intervals or axis deviation. (AL ODOM MD) Diagnostic Imaging Diagonstic Imaging: Xray Plain Films/CT/US/NM/MRI: chest Comments Chest x-ray viewed by me and report reviewed. See report below: NAME: SHIRAZ HAAS [facility] REC#: [id number] PT STATUS: REG ER : 1965 PHYSICIAN: KARYN DELGADO VACUUM CASTER ADMIT DATE: 05/12/21/ER Draft Date of Exam:05/12/21 CHEST 1 VIEW, AP/PA ONLY INDICATION: Chest pain. EXAMINATION: Portable chest at 5:50 PM. Heart size and pulmonary vascularity are normal. Lungs are clear. There are no effusions or pneumothoraces. IMPRESSION: Negative chest. Dictated on workstation # [id number] Dict: 05/12/21 1757 Trans: 05/12/21 1800 E [id number] Interpreted by: RUSS IGLESIAS MD (AL ODOM MD) Diagonstic Imaging: CT (Angiogram) Plain Films/CT/US/NM/MRI: chest Comments [facility]. [place], [place] NAME: SHIRAZ HAAS [facility] REC#: [id number] PT STATUS: REG ER : 1965 PHYSICIAN: AL ODOM MD ADMIT DATE: 05/12/21/ER Signed Date of Exam:05/12/21 CT ANGIO CHEST W PROCEDURE: CT angiography of the chest with contrast. TECHNIQUE: Multiple contiguous axial images were obtained through the chest after uneventful bolus administration of intravenous contrast. 3D reconstructed CTA MIP acquisitions were also performed. Auto Exposure Controls were utilized during the CT exam to meet ALARA standards for radiation dose reduction. INDICATION: Chest pain and shortness of breath. Lungs are clear. There are no effusions or pneumothoraces. There is coronary atherosclerosis with probable coronary stenting. There is no right ventricular strain. There are no pulmonary emboli. IMPRESSION: Coronary atherosclerosis. No evidence for pulmonary embolism. Dictated by: Dictated on workstation # [id number] Dict: 05/12/211857 Trans: 05/12/211923 [facility] [id number] Interpreted by: RUSS IGLESIAS MD Electronically signed by: RUSS IGLESIAS MD 05/12/211923 Reviewed: Reviewed by Mo Diagonstic Imaging: Ultrasound Plain Films/CT/US/NM/MRI: leg (left) Comments [facility] [place], [place] NAME: SHIRAZ HAAS [facility] REC#: [id number] PT STATUS: REG ER : 1965 PHYSICIAN: ELIZABETH ARENAS MD ADMIT DATE: 05/12/21/ER Signed Date of Exam:05/12/21 US VENOUS LOWER EXT LT PROCEDURE: US left lower extremity venous. TECHNIQUE: Multiple real-time grayscale images were obtained over the left lower extremity in various projections. Additional duplex Doppler and color Doppler images were also obtained. INDICATION: Left calf pain. The veins in the left leg have good color filling and compressibility. There is phasic flow and a normal response to augmentation. IMPRESSION: Negative venous Doppler left leg. Dictated by: Dictated on workstation # [id number] Dict: 05/12/212024 Trans: 05/12/212027 [facility] [id number] Interpreted by: RUSS IGLESIAS MD Electronically signed by: RUSS IGLESIAS MD 05/12/212027 Reviewed: Reviewed by Me (ELIZABETH ARENAS) Departure Impression Primary Impression: Chest pain Qualified Codes: R07.9 - Chest pain, unspecified Additional Impressions: Coronary artery disease Qualified Codes: I25.10 - Atherosclerotic heart disease of [place] coronary artery without angina pectoris Pain of left calf Disposition: HOME, SELF-CARE Condition: Stable Departure-Patient Inst. Decision time for Depature: 21:15 (ELIZABETH ARENAS) Referrals: TIMOTHY MATAMOROS DO (PCP/Family) Primary Care Physician BRANDIE JACINTO MD Patient Instructions: Chest Pain (DC) Add. Discharge Instructions: Call Dr. Jacinto first thing Saturday morning after 8 AM. Request a follow-up appointment to discuss your chest pain. Return to the ER for persistent, worsening chest pain, shortness of air or other worrisome symptoms. All discharge instructions reviewed with patient and/or family. Voiced understanding. Work/School Note: Work Release Form Date Seen in the Emergency Department: May 12, 2021 Return to Work: May 13, 2021 Restrictions: No Restrictions Copy Copies To 1: TIMOTHY MATAMOROS DO; BRANDIE JACINTO MD, JOSHUA T MD May 12, 2021 18:21 ELIZABETH ARENAS May 12, 2021 18:53
[2021-05-12] MEDS ORDERED: IOHEXOL 350 MG/ML 100 ML (OMNIPAQUE 350) VIAL IV ONE (18:45)
[2021-05-12] MEDS ORDERED: NS 100 ML (IVPB) BAG IV ONE (18:45)
[2021-05-12] MEDS ORDERED: HOLD METFORMIN - RECEIVED CONTRAST 20 ML VIAL IV SCH (18:45)
[2021-05-12] MEDS ORDERED: PRAS10TA10 PO (18:51)
[2021-05-12] MEDS ORDERED: METF-397 PO (18:51)
[2021-05-12] MEDS ORDERED: ISOS30TA82 PO (18:51)
[2021-05-12] MEDS ORDERED: MTP25TSR PO (18:51)
[2021-05-12] MEDS ORDERED: ATOR40TA70 PO (18:51)
--- NOTE | 2021-05-12 19:04 | Diagnostic Imaging Report ---
PROCEDURE: CT angiography of the chest with contrast. TECHNIQUE: Multiple contiguous axial images were obtained through the chest after uneventful bolus administration of intravenous contrast. 3D reconstructed CTA MIP acquisitions were also performed. Auto Exposure Controls were utilized during the CT exam to meet ALARA standards for radiation dose reduction. INDICATION: Chest pain and shortness of breath. Lungs are clear. There are no effusions or pneumothoraces. There is coronary atherosclerosis with probable coronary stenting. There is no right ventricular strain. There are no pulmonary emboli. IMPRESSION: Coronary atherosclerosis. No evidence for pulmonary embolism. Dictated by: Dictated on workstation # [id number]
--- NOTE | 2021-05-12 20:27 | Diagnostic Imaging Report ---
PROCEDURE: US left lower extremity venous. TECHNIQUE: Multiple real-time grayscale images were obtained over the left lower extremity in various projections. Additional duplex Doppler and color Doppler images were also obtained. INDICATION: Left calf pain. The veins in the left leg have good color filling and compressibility. There is phasic flow and a normal response to augmentation. IMPRESSION: Negative venous Doppler left leg. Dictated by: Dictated on workstation # [id number]
[2021-05-12 21:22] VITALS: BP 132/77
== END 2021-05-12 21:28 | disposition home or self-care (01) ==
LOC: EDUNIT# 17:07 → ER 17:09
DX: I25.10 Atherosclerotic heart disease of native coronary artery without angina pectoris (principal); M79.662 Pain in left lower leg; E11.9 Type 2 diabetes mellitus without complications; Z87.891 Personal history of nicotine dependence; Z79.01 Long term (current) use of anticoagulants
CPT/HCPCS: 36415; 71045; 71275; 80053; 83735; 83874; 83880; 84484; 85025; 85379; 85610; 85730; 93005; 93041

== ENCOUNTER 2021-08-19 18:27 | Emergency (ER) | payer BC ==
[~2021-08-19] VITALS: Ht 170.2 cm; Wt 88.5 kg
[~2021-08-19 18:27] MED LIST changes: +ATOR40TA70 PO; +ISOS30TA82 PO; +METF-397 PO; +MTP25TSR PO; +PRAS10TA10 PO
[2021-08-19] MEDS ORDERED: morphine INJ 10 MG/ML 1ML (SYR OR VIAL) IV STA (18:57)
[2021-08-19] MEDS ORDERED: ASPIRIN 81 MG CHEW (CHILDREN'S ASA) PO ONE (19:00)
--- NOTE | 2021-08-19 19:00 | ED Chest Pain ---
General Stated Complaint: CHEST PAIN Source: patient Exam Limitations: no limitations History of Present Illness Date Seen by Provider: Aug 19, 2021 Time Seen by Provider: 18:58 Initial Comments Patient is a 56-year-old male with a history of coronary artery disease use presents ED with chest pressure. Chest pressure started yesterday. He states he was sitting at home. Pain is intermittent. Not exacerbated with exertion. Associated shortness of breath but that has been intermittent for some time. He reports cardiac stent placed at [facility] last year. Currently on metoprolol, atorvastatin, Effient, Metformin, isosorbride monoitrate. Patient denies of any abdominal pain, cough, vomiting, diarrhea. Patient states it fee ls like he is hungry. Denies worsening pain after eating denies headache, dizziness, visual changes, change in urination. Allergies and Home Medications Allergies Coded Allergies: No Known Drug Allergies (Unverified , 06/02/20) Patient Home Medication List Home Medication List Reviewed: Yes Atorvastatin Calcium (Atorvastatin Calcium) 40 Mg Tablet, 40 MG PO, (Reported) Entered as Reported by: AMANDA THAKKAR on 05/12/211850 Isosorbide Mononitrate (Isosorbide Mononitrate ER) 30 Mg Tab.er.24h, 30 MG PO, (Reported) Entered as Reported by: AMANDA THAKKAR on 05/12/211850 Metformin HCl (Metformin HCl) 500 Mg Tablet, 500 MG PO, (Reported) Entered as Reported by: AMANDA THAKKAR on 05/12/211850 Metoprolol Succinate (Metoprolol Succinate) 25 Mg Tab.er.24h, 25 MG PO DAILY, (Reported) Entered as Reported by: AMANDA THAKKAR on 05/12/211850 Prasugrel HCl (Prasugrel HCl) 10 Mg Tablet, 10 MG PO, (Reported) Entered as Reported by: AMANDA THAKKAR on 05/12/211850 Review of Systems Review of Systems Constitutional: No chills, No fever, No malaise EENTM: No See HPI, No Blurred Vision, No Double Vision, No Eye Pain Respiratory: Denies Cough, Denies Shortness of Air Cardiovascular: Chest Pain; Denies Edema Gastrointestinal: Denies Abdominal Pain, Denies Constipated, Denies Diarrhea, Denies Nausea, Denies Vomiting Genitourinary: Denies Burning Musculoskeletal: No back pain, No joint pain Skin: No change in color All Other Systems Reviewed Negative Unless Noted: Yes Past Corlgbw-Umdyeb-Eajwmb Hx Immunizations Up To Date First/Initial COVID19 Vaccinat: JANUARY 2021 Seasonal Allergies Seasonal Allergies: No Past Medical History Surgery/Hospitalization HX: [place] JANUARY 2021 Surgeries: Yes Coronary Stent Respiratory: Yes (COVID-19 12/2019) Cardiac: Yes Coronary Artery Disease Neurological: No Genitourinary: No Gastrointestinal: No Musculoskeletal: No Endocrine: Yes Diabetes, Non-Insulin dep HEENT: No Cancer: No Psychosocial: No Integumentary: No Blood Disorders: No Physical Exam Vital Signs Vital Signs - First Documented 08/19/21 18:50 Temp 36.9 Pulse 70 Resp 20 B/P (MAP) 145/78 (100) Pulse Ox 97 O2 Delivery Room Air Capillary Refill : Height, Weight, BMI Height: '" Weight: lbs. oz. kg; 30.00 BMI Method: General Appearance: No Apparent Distress, WD/WN HEENT: PERRL/EOMI, TMs Normal, Normal ENT Inspection, Pharynx Normal Neck: Full Range of Motion, Normal Inspection, Non Tender, Supple Respiratory: Chest Non Tender, Lungs Clear, Normal Breath Sounds, No Accessory Muscle Use, No Respiratory Distress Cardiovascular: Regular Rate, Rhythm, No Edema, No Gallop, No JVD Gastrointestinal: Normal Bowel Sounds, No Organomegaly, No Pulsatile Mass, Non Tender Extremity: Normal Capillary Refill, Normal Inspection, Normal Range of Motion Neurologic/Psychiatric: Alert, Oriented x3, No Motor/Sensory Deficits, Normal 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, 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 Skin: Normal Color, Warm/Dry Progress/Results/Core Measures Results/Orders Lab Results Laboratory Tests Test 08/19/21 19:03 08/19/21 21:58 Range/Units White Blood Count 5.4 4.3-11.0 10^3/uL Red Blood Count 4.19 L 4.30-5.52 10^6/uL Hemoglobin 13.0 L 13.3-17.7 g/dL Hematocrit 38 L 40-54 % Mean Corpuscular Volume 90 80-99 fL Mean Corpuscular Hemoglobin 31 25-34 pg Mean Corpuscular Hemoglobin Concent 35 32-36 g/dL Red Cell Distribution Width 12.7 10.0-14.5 % Platelet Count 232 130-400 10^3/uL Mean Platelet Volume 8.0 L 9.0-12.2 fL Immature Granulocyte % (Auto) 0 % Neutrophils (%) (Auto) 38 L 42-75 % Lymphocytes (%) (Auto) 45 H 12-44 % Monocytes (%) (Auto) 7 0-12 % Eosinophils (%) (Auto) 9 0-10 % Basophils (%) (Auto) 1 0-10 % Neutrophils # (Auto) 2.1 1.8-7.8 10^3/uL Lymphocytes # (Auto) 2.4 1.0-4.0 10^3/uL Monocytes # (Auto) 0.4 0.0-1.0 10^3/uL Eosinophils # (Auto) 0.5 H 0.0-0.3 10^3/uL Basophils # (Auto) 0.1 0.0-0.1 10^3/uL Immature Granulocyte # (Auto) 0.0 0.0-0.1 10^3/uL Prothrombin Time 12.4 12.2-14.7 SEC INR Comment 0.9 0.8-1.4 Activated Partial Thromboplast Time 28 24-35 SEC Sodium Level 139 135-145 MMOL/L Potassium Level 3.8 3.6-5.0 MMOL/L Chloride Level 107 98-107 MMOL/L Carbon Dioxide Level 21 21-32 MMOL/L Anion Gap 11 5-14 MMOL/L Blood Urea Nitrogen 22 H 7-18 MG/DL Creatinine 0.94 0.60-1.30 MG/DL Estimat Glomerular Filtration Rate 96 BUN/Creatinine Ratio 23 Glucose Level 132 H 70-105 MG/DL Calcium Level 9.0 8.5-10.1 MG/DL Corrected Calcium 9.1 8.5-10.1 MG/DL Magnesium Level 1.8 1.6-2.4 MG/DL Total Bilirubin 0.3 0.1-1.0 MG/DL Aspartate Amino Transf (AST/SGOT) 18 5-34 U/L Alanine Aminotransferase (ALT/SGPT) 20 0-55 U/L Alkaline Phosphatase 91 40-136 U/L Myoglobin 50.3 10.0-92.0 NG/ML Troponin I < 0.028 < 0.028 <0.028 NG/ML B-Type Natriuretic Peptide 24.1 <100.0 PG/ML Total Protein 7.0 6.4-8.2 GM/DL Albumin 3.9 3.2-4.5 GM/DL Lipase 23 8-78 U/L My Orders Orders - MILLIE OLIVARES Rhea PA Cbc With Automated Diff (08/19/21 18:57) Magnesium (08/19/21 18:57) Chest 1 View, Ap/Pa Only (08/19/21 18:57) Ekg Tracing (08/19/21 18:57) Comprehensive Metabolic Panel (08/19/21 18:57) Myoglobin Serum (08/19/21 18:57) Protime With Inr (08/19/21 18:57) Partial Thromboplastin Time (08/19/21 18:57) O2 (08/19/21 18:57) Monitor-Rhythm Ecg Trace Only (08/19/21 18:57) Ed Iv/Invasive Line Start (08/19/21 18:57) Bnp [place] (08/19/21 18:57) Troponin I Sonia (08/19/21 18:57) Aspirin Chewable Tablet (Baby Aspirin Ch (08/19/21 19:00) Morphine Injection (Morphine Injection (08/19/21 18:57) Lipase (08/19/21 18:57) Troponin I Sonia (08/19/21 21:52) Medications Given in ED Vital Signs/I&O 08/19/21 08/19/21 18:50 22:40 Temp 36.9 Pulse 70 60 Resp 20 18 B/P (MAP) 145/78 (100) 152/86 Pulse Ox 97 99 O2 Delivery Room Air Room Air Comment Sinus rhythm, minimal nonspecific ST elevation anterior leads, 68 bpm, QRS duration 91 MS, QTc 433 MS. Departure Communication (Admissions) Patient with a history of coronary artery disease who presents ED with chest pressure. Pain has been intermittent since yesterday. Similar pain in the past. Patient was seen here last year around February 15 had multivessel coronary artery disease. Was transferred to [place] who had CABG. Currently on Effient. Currently on metoprolol. Patient was given a full aspirin here. Patient had some mild discomfort rated 2 out of 10 on arrival. Chest pain completely resolved here. He states pain feels more like he is hungry. The pain is not exacerbated with eating. He has no upper abdominal pain or discomfort. Denies history of gastritis, GERD, esophagitis. No vomiting. No cough. EKG stable with similar previous EKG results. Initial troponin cardiac work-up was unremarkable. Patient was requesting to be discharged. Due to patient's cardiac history recommend at least a serial troponin at 3-hour david before he will be discharged. He did agree to this. Chest pain appears atypical however due to his previous history I do think this is reasonable. His second troponin was negative. He had no continuous chest pain here. Did once again offer admission for further evaluation. Patient refused. 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 Recommend continue with this medication. He states he has had this pain off and on since his heart surgery. Possible angina versus other etiology. He has no chest tenderness. He is afebrile. Continue monitoring symptoms. If the symptoms worsen he needs to return back to ED. Impression Primary Impression: Chest pain Disposition: HOME, SELF-CARE Condition: Stable Departure-Patient Inst. Decision time for Depature: 22:29 Referrals: TIMOTHY MATAMOROS DO (PCP/Family) Primary Care Physician Patient Instructions: Chest Pain, Adult ED Add. Discharge Instructions: Recommend follow-up with your dip stand loader within this next week. If worsening symptoms he will need to return back to ED for further evaluation. Continue with your medication at home MILLIE OLIVARES Aug 19, 2021 19:00
[2021-08-19 19:11] LABS: BASOPHILS # (AUTO) 0.1 10^3/uL (0.0-0.1); BASOPHILS % (AUTO) 1 % (0-10); EOSINOPHILS # (AUTO) 0.5 10^3/uL (0.0-0.3); EOSINOPHILS % (AUTO) 9 % (0-10); HEMATOCRIT 38 % (40-54); LYMPHOCYTES # (AUTO) 2.4 10^3/uL (1.0-4.0); LYMPHOCYTES % (AUTO) 45 % (12-44); MEAN CORPUSCULAR HEMOGLOBIN 31 pg (25-34); MEAN CORPUSCULAR HGB CONC 35 g/dL (32-36); MEAN CORPUSCULAR VOLUME 90 fL (80-99); MONOCYTES # (AUTO) 0.4 10^3/uL (0.0-1.0); MONOCYTES % (AUTO) 7 % (0-12); NEUTROPHILS # (AUTO) 2.1 10^3/uL (1.8-7.8); NEUTROPHILS % (AUTO) 38 % (42-75); PLATELET COUNT 232 10^3/uL (130-400); WHITE BLOOD COUNT 5.4 10^3/uL (4.3-11.0)
--- NOTE | 2021-08-19 19:22 | Diagnostic Imaging Report ---
INDICATION: Chest pain. EXAMINATION: Single AP view of the chest was obtained. COMPARISON: Study of 05/12/2021. FINDINGS: Heart size and pulmonary vascularity are within normal limits, and the lungs are clear, bilaterally. IMPRESSION: Unremarkable chest. Dictated by: Dictated on workstation # [id number]
[2021-08-19 19:23] LABS: INR 0.9 (0.8-1.4); PROTHROMBIN TIME PATIENT 12.4 SEC (12.2-14.7)
[2021-08-19 19:32] LABS: ALBUMIN 3.9 GM/DL (3.2-4.5); BILIRUBIN,TOTAL 0.3 MG/DL (0.1-1.0); CREATININE SERUM 0.94 MG/DL (0.60-1.30); MAGNESIUM 1.8 MG/DL (1.6-2.4); POTASSIUM 3.8 MMOL/L (3.6-5.0)
[2021-08-19 19:33] LABS: LIPASE 23 U/L (8-78)
[2021-08-19 22:40] VITALS: BP 152/86
== END 2021-08-19 22:40 | disposition home or self-care (01) ==
LOC: EDUNIT# 18:27 → ER 18:32
DX: R07.9 Chest pain, unspecified (principal); I25.10 Atherosclerotic heart disease of native coronary artery without angina pectoris; E11.9 Type 2 diabetes mellitus without complications; Z79.84 Long term (current) use of oral hypoglycemic drugs
CPT/HCPCS: 36415; 71045; 80053; 83690; 83735; 83874; 83880; 84484; 85025; 85610; 85730; 93005; 93041

== ENCOUNTER 2021-12-26 04:24 | Emergency (ER) | payer BC ==
[2021-12-26 04:41] VITALS: BP 182/98
[2021-12-26] MEDS ORDERED: ACETAMINOPHEN 500 MG TAB (TYLENOL) PO ONE (04:45)
[2021-12-26] MEDS ORDERED: IBUPROFEN 800 MG (MOTRIN) TAB PO ONE (04:45)
--- NOTE | 2021-12-26 05:08 | ED Cough/URI ---
General Chief Complaint: Cough/Cold/Flu Symptoms Stated Complaint: COUGH,CAN'T SLEEP,COLD Nursing Triage Note: pt presents with complaint of cough and chills with a dry mouth x1week. reports being covid tested last week and test was negative. reports he came in this morning because he can not sleep d/t his cough Source: patient (EXTREMELY VAGUE AND POOR HISTORIAN ABOUT CURRENT PROBLEM AND PMH), old records (ALL PMH IS FROM OLD RECORDS) Exam Limitations: other (PT DOES NOT KNOW ANY OF HIS MEDICATIONS OR HIS CHARLENE RGIES) History of Present Illness Date Seen by Provider: Dec 26, 2021 Time Seen by Provider: 04:43 Initial Comments PT ARRIVES VIA POV FROM HOME S STATES HE HAS BEEN SICK "FOR ABOUT A WEEK MAYBE" WITH : -NON-PRODUCTIVE COUGH -NASAL CONGESTION AND DRAINAGE -CHILLS -DRY MOUTH -BODY ACHES NO SORE THROAT NO HEADACHE NO GI SYMPTOMS NO LOSS OF TASTE OR SMELL HAS NOT CHECKED HIS TEMPERATURE AT ANY TIME HAS NOT TAKEN ANYTHING FOR ANY OF HIS SYMPTOMS AT ANY TIME SYMPTOMS ARE NO DIFFERENT NOW IN ANY WAY STATES HE CAN'T SLEEP BECAUSE HE COUGHS WHEN HE LAYS DOWN WENT TO [facility] "SOMETIME LAST WEEK" AND HAD A COVID TEST THAT PT STATES WAS NEGATIVE PT STATES NO OTHER TESTS WERE DOWN AND NO RX GIVEN PT HAS HAD COVID-19 VACCINE X 2--OVER A YEAR AGO. NO BOOSTER. NO FLU VACCINE "MAYBE IS A LITTLE SICK TOO--I'M NOT SURE" PCP: [facility]--ALSO GOES TO DR. MATAMOROS STATES HE DOES NOT SEE ANY FAMILY ENGAGEMENT SPECIALIST Allergies and Home Medications Allergies Coded Allergies: lisinopril (Verified Allergy, Unknown, 12/26/21) Patient Home Medication List Home Medication List Reviewed: Yes Atorvastatin Calcium (Atorvastatin Calcium) 40 Mg Tablet, 40 MG PO, (Reported) Entered as Reported by: AMANDA THAKKAR on 05/12/21 185 Benzonatate (Tessalon Perles) 100 Mg Capsule, 200 MG PO TID Prescribed by: GERMAIN ONEILL on 12/26/21532 Doxycycline Hyclate (Doxycycline Hyclate) 100 Mg Tablet, 100 MG PO BID Prescribed by: GERMAIN ONEILL on 12/26/21532 Fluticasone Propionate (Flonase Allergy Relief) 50 Mcg/Actuation Merino.susp, 2 SPRAY NS DAILY Prescribed by: GERMAIN ONEILL on 12/26/21532 Guaifenesin/Dextromethorphan (Mucinex Dm ER 1,200-60 mg Tab) 1,200 Mg-60 Mg Tbmp.12hr, 1 EACH PO BID Prescribed by: GERMAIN ONEILL on 12/26/21532 Isosorbide Mononitrate (Isosorbide Mononitrate ER) 30 Mg Tab.er.24h, 30 MG PO, (Reported) Entered as Reported by: AMANDA THAKKAR on 05/12/211850 Metformin HCl (Metformin HCl) 500 Mg Tablet, 500 MG PO, (Reported) Entered as Reported by: AMANDA THAKKAR on 05/12/211850 Metoprolol Succinate (Metoprolol Succinate) 25 Mg Tab.er.24h, 25 MG PO DAILY, (Reported) Entered as Reported by: AMANDA THAKKAR on 05/12/211850 Prasugrel HCl (Prasugrel HCl) 10 Mg Tablet, 10 MG PO, (Reported) Entered as Reported by: AMANDA THAKKAR on 05/12/211850 Review of Systems Review of Systems Constitutional: see HPI, chills EENTM: nose congestion Respiratory: see HPI, cough; No short of breath Cardiovascular: no symptoms reported Gastrointestinal: no symptoms reported Genitourinary: no symptoms reported Musculoskeletal: see HPI (BODY ACHES) Skin: no symptoms reported Psychiatric/Neurological: No Symptoms Reported; Denies Headache Hematologic/Lymphatic: No Symptoms Reported Immunological/Allergic: no symptoms reported Past Ipbaosi-Udprnb-Fgfwtq Hx Patient Social History Tobacco Use?: Yes Tobacco type used: Cigarettes Smoking Status: Former Smoker Substance use?: No Alcohol Use?: No Immunizations Up To Date First/Initial COVID19 Vaccinat: unknown date Second COVID19 Vaccination Castillo: unknown date COVID19 Vaccine Sales Driver: modernjoanna Seasonal Allergies Seasonal Allergies: No Past Medical History Surgery/Hospitalization HX: [place] JANUARY 2021, CAD Surgeries: Yes Coronary Stent Respiratory: Yes (COVID-19 12/2019 AND 12/2020. NO TREATMENT OR HOSPITALIZATION. ) Cardiac: Yes (NSTEMI 02/2021) Coronary Artery Disease, Heart Attack, High Cholesterol, Hypertension Neurological: No Genitourinary: No Gastrointestinal: No Musculoskeletal: No Endocrine: Yes Diabetes, Non-Insulin dep HEENT: No Cancer: No Psychosocial: No Integumentary: No Blood Disorders: No Family Medical History SOCIAL HISTORY: STATES HE USED TO SMOKE "MAYBE A PACK A WEEK" BUT CANNOT STATE HOW LONG HE SMOKED OR HOW LONG AGO HE QUIT--FIRST STATES "MAYBE A YEAR AGO" THEN STATES "10 YEARS AGO OR SO" STATES HE "USED TO DRINK A LITTLE" BUT UNABLE TO STATE HOW MUCH HE DRANK OR HOW LONG IT HAS BEEN SINCE HE HAD ANY ALCOHOL PAST SURGICAL HISTORY: CARDIAC CATH 02/15/[address] WATKINS FOR NSTEMI: CORONARY ANGIOGRAPHY: Left main coronary artery is free of significant disease. Left anterior descending artery has proximal calcification. There is a long proximal stenotic segment that extends from the ostium to the mid left anterior descending artery and constitute up to 90% stenosis. The left circumflex artery has approximately 70% proximal and 90% mid vessel stenosis. Right coronary artery is dominant and has approximately 50% proximal and 90% mid vessel stenosis. LEFT VENTRICULAR ANGIOGRAPHY: Left ventricular angiography was carried out in the right anterior oblique projection. Global left ventricular systolic function is well preserved. Left ventricular ejection fraction is 50 to 55%. CONCLUSIONS: 1. Multivessel coronary artery disease including up to 90% proximal left anterior descending artery, 90% mid left circumflex, and 90% mid right coronary artery stenoses. Right coronary artery is dominant. 2. Well preserved global left ventricular systolic function with ejection fraction of 50 to 55%. 3. Left ventricular end-diastolic pressure is 11 mmHg. DISCUSSION AND RECOMMENDATIONS: Based on results of the study, coronary artery bypass surgery appears to be the best treatment option. We have spoken with Dr. Joseph of the cardiovascular surgical services at [facility] and he has kindly accepted the patient in transfer. Arrangements are being made at the time of this dictation. Physical Exam Vital Signs - First Documented 12/26/21 04:41 Temp 38.6 Pulse 98 Resp 18 B/P (MAP) 182/98 (126) Pulse Ox 96 O2 Delivery Room Air Capillary Refill : Height: '" Weight: lbs. oz. kg; 30.00 BMI Method: General Appearance: WD/WN, no apparent distress HEENT: PERRL/EOMI, normal ENT inspection, TMs normal, pharynx normal, other (NASAL CONGESTION AND CLEAR POST NASAL DRAINAGE. ) Neck: normal inspection Respiratory: normal breath sounds, no respiratory distress, no accessory muscle use Cardiovascular: regular rate, rhythm, no murmur Gastrointestinal: non tender, soft Extremities: normal inspection, normal capillary refill Neurologic/Psychiatric: no motor/sensory deficits, alert, oriented x 3 Skin: normal color (PT IS DARK SKINNED--), warm/dry; No rash Progress/Results/Core Measures Suspected Sepsis SIRS Temperature: Pulse: 98 Respiratory Rate: 18 Blood Pressure 182 /98 Mean: 126 Results/Orders Lab Results Laboratory Tests Test 12/26/21 04:36 Range/Units Influenza Type A (RT-PCR) Not Detected Not Detecte Influenza Type B (RT-PCR) Not Detected Not Detecte SARS-CoV-2 RNA (RT-PCR) Not Detected Not Detecte My Orders Orders - GERMAIN ONEILL DO Covid 19 Inhouse Test (12/26/21 04:43) Influenza A And B By Pcr (12/26/21 04:43) Isolation Central Supply Req (12/26/21 04:43) Acetaminophen Tablet (Tylenol Tablet) (12/26/21 04:45) Ibuprofen Tablet (Motrin Tablet) (12/26/21 04:45) Vital Signs/I&O 12/26/21 12/26/21 04:41 04:41 Temp 38.6 Pulse 98 Resp 18 B/P (MAP) 182/98 (126) Pulse Ox 96 O2 Delivery Room Air Room Air Capillary Refill : Blood Pressure Mean: 126 Progress Note : Progress Note PLACED IN ISOLATION ROOM PPE WORN AT ALL TIMES COVID AND FLU TESTING DONE GIVEN TYLENOL AND MOTRIN FOR FEVER NO COUGH NO DYSPNEA NO HYPOXIA DURING ER STAY Departure Impression Primary Impression: Upper respiratory infection Additional Impression: COVID LIKE ILLNESS Disposition: 01 HOME, SELF-CARE Condition: Stable Departure-Patient Inst. Decision time for Depature: 05:31 Referrals: TIMOTHY MATAMOROS DO (PCP/Family) Primary Care Physician [facility] Patient Instructions: Upper Respiratory Infection ED Add. Discharge Instructions: TAKE TYLENOL 1000 MG AND MOTRIN 800 MG 4 TIMES A DAY FOR PAIN OR FEVER YOU NEED TO CHECK YOUR TEMPERATURE EVERY 4-6 HOURS UNTIL YOU ARE WELL INCREASE YOUR FLUID INTAKE--WATER, BROTH, JELLO, GATORADE [facility]-4 DAYS IF NO BETTER All discharge instructions reviewed with patient and/or family. Voiced understanding. Scripts Benzonatate (TESSALON PERLES) 100 Mg Capsule 200 MG PO TID, #30 CAP Prov: GERMAIN ONEILL DO 12/26/21 Fluticasone Propionate (Flonase Allergy Relief) 50 Mcg/Actuation Merino.susp 2 SPRAY NS DAILY, #1 EACH 2 SPRAYS PER NOSTRIL DAILY X 2 DAYS THEN 1 SPRAY DAILY Prov: GERMAIN ONEILL DO 12/26/21 Guaifenesin/Dextromethorphan (Mucinex Dm ER 1,200-60 mg Tab) 1,200 Mg-60 Mg Tbmp.12hr 1 EACH PO BID, #20 EA Prov: GERMAIN ONEILL DO 12/26/21 Doxycycline Hyclate (Doxycycline Hyclate) 100 Mg Tablet 100 MG PO BID, #20 TAB 0 Refills Prov: GERAMIN ONEILL DO 12/26/21 GERMAIN ONEILL DO Dec 26, 2021 05:08
[2021-12-26] MEDS ORDERED: BENZ100C18 PO (05:33)
[2021-12-26] MEDS ORDERED: GUAI1TBM19 PO (05:33)
[2021-12-26] MEDS ORDERED: DOXY100T2 PO (05:33)
[2021-12-26] MEDS ORDERED: FLUT9.9S NS (05:33)
== END 2021-12-26 05:41 | disposition home or self-care (01) ==
LOC: EDUNIT# 04:24 → ER 04:28
DX: J06.9 Acute upper respiratory infection, unspecified (principal); Z20.822 Contact with and (suspected) exposure to COVID-19; Z86.16 Personal history of COVID-19; Z87.891 Personal history of nicotine dependence
CPT/HCPCS: 87636; 99283

== ENCOUNTER → 2022-06-04 | Outpatient (CLI) | payer BC ==
[~2022-06-04] MED LIST changes: +DOXY100T2 PO; +FLUT9.9S NS; +GUAI1TBM19 PO
[2022-06-04 16:54] LABS: HEMATOCRIT 44 % (40-54); MEAN CORPUSCULAR HEMOGLOBIN 30 pg (25-34); MEAN CORPUSCULAR HGB CONC 34 g/dL (32-36); MEAN CORPUSCULAR VOLUME 88 fL (80-99); MEAN PLATELET VOLUME 8.6 fL (9.0-12.2); PLATELET COUNT 177 10^3/uL (130-400); WHITE BLOOD COUNT 5.2 10^3/uL (4.3-11.0)
[2022-06-04 17:12] LABS: BILIRUBIN,TOTAL 0.5 MG/DL (0.1-1.0); CALCIUM 9.1 MG/DL (8.5-10.1); CREATININE SERUM 1.23 MG/DL (0.60-1.30); POTASSIUM 4.3 MMOL/L (3.6-5.0); TOTAL PROTEIN 7.6 GM/DL (6.4-8.2)
== END ==
LOC: LAB 16:24
PROVIDERS: ATTEND Family Medicine
DX: E78.5 Hyperlipidemia, unspecified (principal); I25.10 Atherosclerotic heart disease of native coronary artery without angina pectoris
CPT/HCPCS: 36415; 80053; 80061; 84153; 85027

== ENCOUNTER 2022-07-13 21:49 | Emergency (ER) | payer BC ==
[2022-07-13 22:04] VITALS: BP 151/105
[2022-07-13] MEDS ORDERED: DEXT30SU19 PO (22:40)
--- NOTE | 2022-07-13 22:40 | ED Cough/URI ---
General Chief Complaint: Cough/Cold/Flu Symptoms Stated Complaint: COUGH/CONGESTION/CHEST PAIN/SOA Nursing Triage Note: Pt arrives with c/o cough, shortness of breath and pain with deep inspiration. Pt states he's been sick x2 days, unsure if he's been exposed to anything. Denies fever. Pt reports he feels like he needs to cough something up, but can not get it out. Source: patient Exam Limitations: no limitations History of Present Illness Date Seen by Provider: Jul 13, 2022 Time Seen by Provider: 22:06 Initial Comments Patient is a 57-year-old male who presents to the emergency department for evaluation of cough, shortness of breath, and chest pain with deep inspiration/cough. Patient states he has had the symptoms for 2 days. Unsure if he has had any recent sick contacts. He denies any fever. States the cough is mostly nonproductive. He feels like he does have something rattling around in his chest when he coughs but is unable to cough it up. Denies any chest pain other than when he deeply breathes and or coughs. Denies any diaphoresis, radiation of the chest pain, exertional intolerance, dependent edema. Patient does have a history of CABG. Allergies and Home Medications Allergies Coded Allergies: lisinopril (Verified Allergy, Unknown, 12/26/21) Patient Home Medication List Home Medication List Reviewed: Yes Atorvastatin Calcium (Atorvastatin Calcium) 40 Mg Tablet, 40 MG PO, (Reported) Entered as Reported by: AMANDA THAKKAR on 05/12/21 1851 Benzonatate (Tessalon Perles) 100 Mg Capsule, 200 MG PO TID Prescribed by: GERMAIN ONEILL on 12/26/21532 Dextromethorphan Polistirex (Dextromethorphan Polistirex) 30 Mg/5 Ml Jesica.er.12h, 60 MG PO BID Prescribed by: Pato Willoughby on 07/13/22 2240 Doxycycline Hyclate (Doxycycline Hyclate) 100 Mg Tablet, 100 MG PO BID Prescribed by: GERMAIN ONEILL on 12/26/21532 Fluticasone Propionate (Flonase Allergy Relief) 50 Mcg/Actuation [place].susp, 2 SPRAY NS DAILY Prescribed by: GERMAIN ONEILL on 12/26/21 0533 Guaifenesin/Dextromethorphan (Mucinex Dm ER 1,200-60 mg Tab) 1,200 Mg-60 Mg Tbmp.12hr, 1 EACH PO BID Prescribed by: GERMAIN ONEILL on 12/26/21 0533 Isosorbide Mononitrate (Isosorbide Mononitrate ER) 30 Mg Tab.er.24h, 30 MG PO, (Reported) Entered as Reported by: AMANDA THAKKAR on 05/12/211850 Metformin HCl (Metformin HCl) 500 Mg Tablet, 500 MG PO, (Reported) Entered as Reported by: AMANDA THAKKAR on 05/12/211850 Metoprolol Succinate (Metoprolol Succinate) 25 Mg Tab.er.24h, 25 MG PO DAILY, (Reported) Entered as Reported by: AMANDA THAKKAR on 05/12/211850 Prasugrel HCl (Prasugrel HCl) 10 Mg Tablet, 10 MG PO, (Reported) Entered as Reported by: AMANDA THAKKAR on 05/12/211850 Review of Systems Review of Systems Constitutional: no symptoms reported EENTM: no symptoms reported Respiratory: see HPI, cough Cardiovascular: see HPI, chest pain Gastrointestinal: no symptoms reported Genitourinary: no symptoms reported Musculoskeletal: no symptoms reported Skin: no symptoms reported Psychiatric/Neurological: No Symptoms Reported Hematologic/Lymphatic: No Symptoms Reported Immunological/Allergic: no symptoms reported Past Xizqavs-Qxkpii-Ejzgdg Hx Immunizations Up To Date First/Initial COVID19 Vaccinat: unknown date Second COVID19 Vaccination Castillo: unknown date Third COVID19 Vaccination Date: unknown date Seasonal Allergies Seasonal Allergies: No Past Medical History Surgery/Hospitalization HX: [place] JANUARY 2021, CAD Surgeries: Yes Coronary Stent Respiratory: Yes (COVID-19 12/2019 AND 12/2020. NO TREATMENT OR HOSPITALIZA TION. ) Cardiac: Yes (NSTEMI 02/2021) Coronary Artery Disease, Heart Attack, High Cholesterol, Hypertension Neurological: No Genitourinary: No Gastrointestinal: No Musculoskeletal: No Endocrine: Yes Diabetes, Non-Insulin dep HEENT: No Cancer: No Psychosocial: No Integumentary: No Blood Disorders: No Family Medical History SOCIAL HISTORY: STATES HE USED TO SMOKE "MAYBE A PACK A WEEK" BUT CANNOT STATE HOW LONG HE SMOKED OR HOW LONG AGO HE QUIT--FIRST STATES "MAYBE A YEAR AGO" THEN STATES "10 YEARS AGO OR SO" STATES HE "USED TO DRINK A LITTLE" BUT UNABLE TO STATE HOW MUCH HE DRANK OR HOW LONG IT HAS BEEN SINCE HE HAD ANY ALCOHOL PAST SURGICAL HISTORY: CARDIAC CATH 02/15/[address] WATKINS FOR NSTEMI: CORONARY ANGIOGRAPHY: Left main coronary artery is free of significant disease. Left anterior descending artery has proximal calcification. There is a long proximal stenotic segment that extends from the ostium to the mid left anterior descending artery and constitute up to 90% stenosis. The left circumflex artery has approximately 70% proximal and 90% mid vessel stenosis. Right coronary artery is dominant and has approximately 50% proximal and 90% mid vessel stenosis. LEFT VENTRICULAR ANGIOGRAPHY: Left ventricular angiography was carried out in the right anterior oblique projection. Global left ventricular systolic function is well preserved. Left ventricular ejection fraction is 50 to 55%. CONCLUSIONS: 1. Multivessel coronary artery disease including up to 90% proximal left anterior descending artery, 90% mid left circumflex, and 90% mid right coronary artery stenoses. Right coronary artery is dominant. 2. Well preserved global left ventricular systolic function with ejection fraction of 50 to 55%. 3. Left ventricular end-diastolic pressure is 11 mmHg. DISCUSSION AND RECOMMENDATIONS: Based on results of the study, coronary artery bypass surgery appears to be the best treatment option. We have spoken with Dr. Joseph of the cardiovascular surgical services at [facility] and he has kindly accepted the patient in transfer. Arrangements are being made at the time of this dictation. Physical Exam Vital Signs - First Documented 07/13/22 22:04 Temp 36.7 Pulse 77 Resp 18 B/P (MAP) 151/105 (120) Capillary Refill : Less Than 3 Seconds Height: '" Weight: lbs. oz. kg; 30.00 BMI Method: General Appearance: WD/WN, no apparent distress HEENT: PERRL/EOMI, normal ENT inspection, TMs normal, pharynx normal Neck: non-tender, full range of motion, supple, normal inspection Respiratory: chest non-tender, lungs clear, normal breath sounds Cardiovascular: regular rate, rhythm Gastrointestinal: normal bowel sounds, non tender, soft Extremities: normal range of motion, non-tender Neurologic/Psychiatric: no motor/sensory deficits, alert, normal mood/affect, oriented x 3 Skin: normal color, warm/dry Progress/Results/Core Measures Suspected Sepsis SIRS Temperature: Pulse: 77 Respiratory Rate: 18 Blood Pressure 151 /105 Mean: 120 Results/Orders Lab Results Laboratory Tests Test 07/13/22 21:58 Range/Units Influenza Type A (RT-PCR) Not Detected Not Detecte Influenza Type B (RT-PCR) Not Detected Not Detecte SARS-CoV-2 RNA (RT-PCR) Not Detected Not Detecte My Orders Orders - PATO WILLOUGHBY APRN Covid 19 Inhouse Test (07/13/22 22:01) Influenza A And B By Pcr (07/13/22 22:01) Isolation Central Supply Req (07/13/22 22:01) Chest 1 View, Ap/Pa Only (07/13/22 22:01) Vital Signs/I&O 07/13/22 22:04 Temp 36.7 Pulse 77 Resp 18 B/P (MAP) 151/105 (120) Capillary Refill : Less Than 3 Seconds Blood Pressure Mean: 120 Progress Note : Progress Note Patient is nontoxic and well-hydrated on exam. No adventitious lung sounds or increased work of breathing noted. Vital signs are reassuring. Patient has pinpoint chest pain in the left anterior lower chest wall. Area is not tender to palpation. Pain is reproduced with deep inspiration or cough. Order placed for COVID/flu test and chest x-ray. COVID and flu tests are negative. Chest x-ray reveals no definitive infiltrate or other acute abnormality on my read. Formal radiology report states there could be several right lower infiltrates and cannot exclude pneumonia. I think it is unlikely patient has pneumonia at this time given reassuring clinical picture and completely clear breath sounds. Also have very low suspicion for ACS given pain is reproducible. Very low suspicion for D-dimer as pretest probability is very low. No further diagnostics are indicated at this time. Will discharge home with recommendations for supportive care and close follow-up with PCP. Return precautions for symptomology discussed. Patient verbalized understanding. Departure Impression Primary Impression: Upper respiratory infection Qualified Codes: J06.9 - Acute upper respiratory infection, unspecified Disposition: HOME, SELF-CARE Condition: Stable Departure-Patient Inst. Decision time for Depature: 22:35 Referrals: TIMOTHY MATAMOROS DO (PCP/Family) Primary Care Physician Patient Instructions: Upper Respiratory Infection ED Scripts Dextromethorphan Polistirex (Dextromethorphan Polistirex) 30 Mg/5 Ml Jesica.er.12h 60 MG PO BID for 5 Days, #100 ML 0 Refills Prov: PATO WILLOUGHBY APRN 07/13/22 PATO WILLOUGHBY APRN Jul 13, 2022 22:40
--- NOTE | 2022-07-14 06:48 | Diagnostic Imaging Report ---
INDICATION: Dyspnea, cough and congestion for 2 days. COMPARISON: 08/19/2021. DISCUSSION: Single portable upright view of the chest was obtained. Subtle infiltrates are noted within the right lung base, likely atelectasis or pneumonia. Viral pneumonia is not excluded. Normal heart size. No pleural fluid or pneumothorax. No osseous abnormality. IMPRESSION: 1. Subtle infiltrates within the right lung base which could be seen with pneumonia. Dictated by: Dictated on workstation # [id number]
== END 2022-07-13 23:00 | disposition home or self-care (01) ==
LOC: EDUNIT# 21:49 → ER 21:52
DX: J06.9 Acute upper respiratory infection, unspecified (principal); Z86.16 Personal history of COVID-19; Z87.891 Personal history of nicotine dependence; Z20.822 Contact with and (suspected) exposure to COVID-19
CPT/HCPCS: 71045; 87636

== ENCOUNTER → 2022-11-05 | Outpatient (CLI) | payer BC ==
[~2022-11-05] MED LIST changes: +DEXT30SU19 PO
[2022-11-05 10:13] LABS: HEMATOCRIT 40 % (40-54); HEMOGLOBIN 14.2 g/dL (13.3-17.7); MEAN CORPUSCULAR HEMOGLOBIN 32 pg (25-34); MEAN CORPUSCULAR HGB CONC 35 g/dL (32-36); MEAN CORPUSCULAR VOLUME 89 fL (80-99); MEAN PLATELET VOLUME 9.2 fL (9.0-12.2); PLATELET COUNT 240 10^3/uL (130-400); WHITE BLOOD COUNT 5.8 10^3/uL (4.3-11.0)
[2022-11-05 10:33] LABS: ALBUMIN 3.8 GM/DL (3.2-4.5); BILIRUBIN,TOTAL 0.3 MG/DL (0.1-1.0); CALCIUM 9.1 MG/DL (8.5-10.1); POTASSIUM 4.2 MMOL/L (3.6-5.0); TOTAL PROTEIN 7.2 GM/DL (6.4-8.2); URIC ACID 7.7 MG/DL (2.6-7.2)
== END ==
LOC: LAB 10:02
PROVIDERS: ATTEND Family Medicine
DX: M10.9 Gout, unspecified (principal); I25.10 Atherosclerotic heart disease of native coronary artery without angina pectoris; R09.89 Other specified symptoms and signs involving the circulatory and respiratory systems; R97.20 Elevated prostate specific antigen [PSA]
CPT/HCPCS: 36415; 80053; 80061; 84153; 84550; 85027

== ENCOUNTER → 2022-11-15 | Outpatient (CLI) | payer BC ==
[2022-11-15 10:14] LABS: BILIRUBIN,TOTAL 0.4 MG/DL (0.1-1.0)
[2022-11-15 10:18] LABS: BILIRUBIN,DIRECT 0.2 MG/DL (0.0-0.3); BILIRUBIN,INDIRECT 0.2 MG/DL
== END ==
LOC: LAB 09:48
PROVIDERS: ATTEND Family Medicine
DX: R94.5 Abnormal results of liver function studies (principal)
CPT/HCPCS: 36415; 80076

== ENCOUNTER 2023-02-01 10:44 | Observation (INO) | payer BC ==
[~2023-02-01] VITALS: Ht 170.1 cm; Wt 95.5 kg
[2023-02-01] MEDS ORDERED: ASPIRIN 81 MG CHEWABLE TABLET PO ONE (11:00)
--- NOTE | 2023-02-01 11:03 | ED Chest Pain ---
General Chief Complaint: Chest Pain Stated Complaint: CHEST PAIN | 3 STENTS Nursing Triage Note: chest pain started yesterday states it comes and goes. has a hx of having 3 stents placed. sent over by dr almanzar office Source: patient Exam Limitations: no limitations History of Present Illness Date Seen by Provider: Feb 01, 2023 Time Seen by Provider: 11:02 Initial Comments Patient is a 57-year-old male with a history of diabetes, hypertension, hyperlipidemia, who presents to ED with substernal chest pain. Chest pain has been intermittent since yesterday. Describes the pain as squeezing sensation. Not worse with exertion. Rates pain 5 out of 10. No associated shortness of breath but did develop a cough while he was here. Was seen at his primary care physician Dr. Matamoros who gave him a full aspirin 324 mg. Currently on Effient. History of 3 cardiac stents. Scheduled to follow-up with Dr. Gardner. Denies of any recent travels or surgeries. No pain with eating. Reports associated dizziness without lightheadedness, visual changes, headache, sore throat, ear pain, wheezing, abdominal pain, vomiting or diarrhea. Reports history of similar symptoms in the past. Patient had abnormal cardiac cath in 2020 was transferred to [place] and had stents placed Allergies and Home Medications Allergies Coded Allergies: lisinopril (Verified Allergy, Unknown, 12/26/21) Patient Home Medication List Home Medication List Reviewed: Yes Atorvastatin Calcium (Atorvastatin Calcium) 40 Mg Tablet, 40 MG PO, (Reported) Entered as Reported by: AMANDA THAKKAR on 05/12/21 1851 Benzonatate (Tessalon Perles) 100 Mg Capsule, 200 MG PO TID Prescribed by: GERMAIN ONEILL on 12/26/21532 Dextromethorphan Polistirex (Dextromethorphan Polistirex) 30 Mg/5 Ml Jesica.er.12h, 60 MG PO BID Prescribed by: Pato Willoughby on 07/13/22 2240 Doxycycline Hyclate (Doxycycline Hyclate) 100 Mg Tablet, 100 MG PO BID Prescribed by: GERMAIN ONEILL on 12/26/21532 Fluticasone Propionate (Flonase Allergy Relief) 50 Mcg/Actuation [place].susp, 2 SPRAY NS DAILY Prescribed by: GERMAIN ONEILL on 12/26/21532 Guaifenesin/Dextromethorphan (Mucinex Dm ER 1,200-60 mg Tab) 1,200 Mg-60 Mg Tbmp.12hr, 1 EACH PO BID Prescribed by: GERMAIN ONEILL on 12/26/21 0533 Isosorbide Mononitrate (Isosorbide Mononitrate ER) 30 Mg Tab.er.24h, 30 MG PO, (Reported) Entered as Reported by: AMANDA THAKKAR on 05/12/211850 Metformin HCl (Metformin HCl) 500 Mg Tablet, 500 MG PO, (Reported) Entered as Reported by: AMANDA THAKKAR on 05/12/211850 Metoprolol Succinate (Metoprolol Succinate) 25 Mg Tab.er.24h, 25 MG PO DAILY, (Reported) Entered as Reported by: AMANDA THAKKAR on 05/12/211850 Prasugrel HCl (Prasugrel HCl) 10 Mg Tablet, 10 MG PO, (Reported) Entered as Reported by: AMANDA THAKKAR on 05/12/211850 Review of Systems Review of Systems Constitutional: No chills, No diaphoresis EENTM: No Double Vision, No Eye Pain Respiratory: Cough; Denies Orthopnea Cardiovascular: Chest Pain Gastrointestinal: Denies Nausea, Denies Poor Appetite Genitourinary: Denies Burning, Denies Discharge, Denies Frequency, Denies Flank Pain Musculoskeletal: No back pain, No joint pain Skin: No change in color, No change in hair/nails All Other Systems Reviewed Negative Unless Noted: Yes Past Mqnsroq-Unzbjg-Ptgaqv Hx Immunizations Up To Date First/Initial COVID19 Vaccinat: unknown date Second COVID19 Vaccination Castillo: unknown date Third COVID19 Vaccination Date: unknown date Seasonal Allergies Seasonal Allergies: No Past Medical History Surgery/Hospitalization HX: [place] JANUARY 2021, CAD Surgeries: Yes Coronary Stent Respiratory: Yes (COVID-19 12/2019 AND 12/2020. NO TREATMENT OR HOSPITALIZATION. ) Cardiac: Yes (NSTEMI 02/2021) Coronary Artery Disease, Heart Attack, High Cholesterol, Hypertension Neurological: No Genitourinary: No Gastrointestinal: No Musculoskeletal: No Endocrine: Yes Diabetes, Non-Insulin dep HEENT: No Cancer: No Psychosocial: No Integumentary: No Blood Disorders: No Family Medical History SOCIAL HISTORY: STATES HE USED TO SMOKE "MAYBE A PACK A WEEK" BUT CANNOT STATE HOW LONG HE SMOKED OR HOW LONG AGO HE QUIT--FIRST STATES "MAYBE A YEAR AGO" THEN STATES "10 YEARS AGO OR SO" STATES HE "USED TO DRINK A LITTLE" BUT UNABLE TO STATE HOW MUCH HE DRANK OR HOW LONG IT HAS BEEN SINCE HE HAD ANY ALCOHOL PAST SURGICAL HISTORY: CARDIAC CATH 02/15/[address] WATKINS FOR NSTEMI: CORONARY ANGIOGRAPHY: Left main coronary artery is free of significant disease. Left anterior descending artery has proximal calcification. There is a long proximal stenotic segment that extends from the ostium to the mid left anterior descending artery and constitute up to 90% stenosis. The left circumflex artery has approximately 70% proximal and 90% mid vessel stenosis. Right coronary artery is dominant and has approximately 50% proximal and 90% mid vessel stenosis. LEFT VENTRICULAR ANGIOGRAPHY: Left ventricular angiography was carried out in the right anterior oblique projection. Global left ventricular systolic function is well preserved. Left ventricular ejection fraction is 50 to 55%. CONCLUSIONS: 1. Multivessel coronary artery disease including up to 90% proximal left anterior descending artery, 90% mid left circumflex, and 90% mid right coronary artery stenoses. Right coronary artery is dominant. 2. Well preserved global left ventricular systolic function with ejection fraction of 50 to 55%. 3. Left ventricular end-diastolic pressure is 11 mmHg. DISCUSSION AND RECOMMENDATIONS: Based on results of the study, coronary artery bypass surgery appears to be the best treatment option. We have spoken with Dr. Joseph of the cardiovascular surgical services at [facility] and he has kindly accepted the patient in transfer. Arrangements are being made at the time of this dictation. Physical Exam Vital Signs Vital Signs - First Documented 02/01/23 10:49 Temp 36.5 Pulse 67 Resp 18 B/P (MAP) 124/85 (98) Pulse Ox 96 O2 Delivery Room Air Capillary Refill : Less Than 3 Seconds Height, Weight, BMI Height: '" Weight: lbs. oz. kg; 33.00 BMI Method: General Appearance: No Apparent Distress, WD/WN HEENT: PERRL/EOMI, TMs Normal, Normal ENT Inspection, Pharynx Normal Neck: Full Range of Motion, Normal Inspection, Non Tender, Supple Respiratory: Chest Non Tender, Lungs Clear, Normal Breath Sounds, No Accessory Muscle Use, No Respiratory Distress Cardiovascular: Regular Rate, Rhythm, No Edema, No Gallop, No JVD Gastrointestinal: Normal Bowel Sounds, No Organomegaly, No Pulsatile Mass, Non Tender Extremity: Normal Capillary Refill, Normal Inspection, Normal Range of Motion Neurologic/Psychiatric: Alert, Oriented x3, No Motor/Sensory Deficits, Normal Mood/Affect, tub puller II-XII Norm as Tested Skin: Normal Color, Warm/Dry Progress/Results/Core Measures Results/Orders Lab Results Laboratory Tests Test 02/01/23 11:05 Range/Units White Blood Count 5.7 4.3-11.0 10^3/uL Red Blood Count 4.39 4.30-5.52 10^6/uL Hemoglobin 13.7 13.3-17.7 g/dL Hematocrit 39 L 40-54 % Mean Corpuscular Volume 90 80-99 fL Mean Corpuscular Hemoglobin 31 25-34 pg Mean Corpuscular Hemoglobin Concent 35 32-36 g/dL Red Cell Distribution Width 12.4 10.0-14.5 % Platelet Count 204 130-400 10^3/uL Mean Platelet Volume 8.2 L 9.0-12.2 fL Immature Granulocyte % (Auto) 0 % Neutrophils (%) (Auto) 29 L 42-75 % Lymphocytes (%) (Auto) 43 12-44 % Monocytes (%) (Auto) 8 0-12 % Eosinophils (%) (Auto) 19 H 0-10 % Basophils (%) (Auto) 1 0-10 % Neutrophils # (Auto) 1.7 L 1.8-7.8 10^3/uL Lymphocytes # (Auto) 2.4 1.0-4.0 10^3/uL Monocytes # (Auto) 0.5 0.0-1.0 10^3/uL Eosinophils # (Auto) 1.1 H 0.0-0.3 10^3/uL Basophils # (Auto) 0.1 0.0-0.1 10^3/uL Immature Granulocyte # (Auto) 0.0 0.0-0.1 10^3/uL Neutrophils % (Manual) 24 % Lymphocytes % (Manual) 40 % Monocytes % (Manual) 11 % Eosinophils % (Manual) 23 % Basophils % (Manual) 0 % Band Neutrophils 0 % Reactive Lymphocytes 2 % Blood Morphology Comment NORMAL Prothrombin Time 12.5 12.2-14.7 SEC INR Comment 0.9 0.8-1.4 Activated Partial Thromboplast Time 29 24-35 SEC Sodium Level 138 135-145 MMOL/L Potassium Level 3.9 3.6-5.0 MMOL/L Chloride Level 106 98-107 MMOL/L Carbon Dioxide Level 24 21-32 MMOL/L Anion Gap 8 5-14 MMOL/L Blood Urea Nitrogen 25 H 7-18 MG/DL Creatinine 0.88 0.60-1.30 MG/DL Estimat Glomerular Filtration Rate 101 BUN/Creatinine Ratio 28 Glucose Level 103 70-105 MG/DL Calcium Level 8.8 8.5-10.1 MG/DL Corrected Calcium 8.9 8.5-10.1 MG/DL Magnesium Level 2.0 1.6-2.4 MG/DL Total Bilirubin 0.5 0.1-1.0 MG/DL Aspartate Amino Transf (AST/SGOT) 21 5-34 U/L Alanine Aminotransferase (ALT/SGPT) 36 0-55 U/L Alkaline Phosphatase 93 40-136 U/L Myoglobin 69.5 10.0-92.0 NG/ML Troponin I < 0.028 <0.028 NG/ML B-Type Natriuretic Peptide < 10.0 <100.0 PG/ML Total Protein 7.1 6.4-8.2 GM/DL Albumin 3.9 3.2-4.5 GM/DL Lipase 60 8-78 U/L My Orders Orders - MILLIE OLIVARES PA Cbc With Automated Diff (02/01/23 10:55) Magnesium (02/01/23 10:55) Chest 1 View, Ap/Pa Only (02/01/23 10:55) Comprehensive Metabolic Panel (02/01/23 10:55) Myoglobin Serum (02/01/23 10:55) Protime With Inr (02/01/23 10:55) Partial Thromboplastin Time (02/01/23 10:55) Monitor-Rhythm Ecg Trace Only (02/01/23 10:55) Ed Iv/Invasive Line Start (02/01/23 10:55) Lipase (02/01/23 10:55) Bnp Sonia (02/01/23 10:55) Troponin I [place] (02/01/23 10:55) Aspirin Chewable Tablet (Aspirin Chewabl (02/01/23 11:00) Morphine Injection (Morphine Injection (02/01/23 11:15) Manual Differential (02/01/23 11:05) Troponin I [place] (02/01/23 14:20) Enoxaparin Injection (Enoxaparin Injecti (02/01/23 12:30) Medications Given in ED Current Medications Medications Dose Ordered Sig/Deja Route Start Time Stop Time Status Last Admin Dose Admin Morphine Sulfate 4 mg ONCE ONCE IVP 02/01/23 11:15 02/01/23 11:16 DC 02/01/23 11:36 4 MG Vital Signs/I&O 02/01/23 10:49 Temp 36.5 Pulse 67 Resp 18 B/P (MAP) 124/85 (98) Pulse Ox 96 O2 Delivery Room Air Blood Pressure Mean: 98 Comment Sinus rhythm, minimal voltage criteria for LVH, 65 bpm, QRS duration 94 MS, QTc 402 MS Departure Communication (Admissions) Time/Spoke to Admitting Phy: 12:[address] Moore cardiology. Recommend 3-hour troponin, troponin in the morning, Lovenox 1 mg/kg 2 doses 1 now and 12 hours later. Echo today or in the morning. N.p.o. after midnight. May require cardiac cath with strong cardiac history Communication (PCP) Differential diagnoses ACS, pericarditis, myocarditis, pneumonia, pneumothorax, gastritis, GERD, esophagitis. Patient was sent over from Dr. Matamoros's office for chest pain. Was given a full aspirin in the office. Chest pain since yesterday described as pressure rates pain 5 out of 10 on arrival. No associated shortness of breath or worsening symptoms with exertion. He has been having intermittent pain for a few months now but seem to be worse today. Not currently following a job checker but schedule a follow-up with Dr. watkins next month. Patient had a cardiac cath performed in 2020. Was transferred to [place] and evaluated by Dr. Joseph. Patient had multivessel disease and had 3 stents placed. Currently on Effient. Diabetic, hypertension, dyslipidemia. Cardiac risk factors noted. Heart score of 5. Suspicious for cardiac. Chest x-ray EKG cardiac work-up was initiated. EKG showed normal sinus rhythm without evidence of ST elevation or depression or arrhythmia. Chest x-ray unremarkable. Patient troponin and BNP was initially negative. Did receive a 4 mg dose of morphine with improvement of pain. Vital signs remained stable. Consulted with job checker Dr. Moore who recommended admission at this time. N.p.o. after midnight. Recommended echo. Lovenox 1 mg/kg x 2 dose, 3-hour troponin and troponin in the morning. Patient agrees with admission at this time. Impression Primary Impression: Chest pain Disposition: ADMITTED INPATIENT Condition: Stable Admissions Decision to Admit Reason: Admit from ER (General) Decision to Admit/Date: Feb 01, 2023 Time/Decision to Admit Time: 12:26 Departure-Patient Inst. Referrals: TIMOTHY MATAMOROS DO (PCP/Family) Primary Care Physician MILLIE OLIVARES Feb 01, 2023 11:03
[2023-02-01] MEDS ORDERED: morphine INJ 4 MG/ML 1 ML (VIAL/SYRINGE) IVP ONE (11:15)
[2023-02-01 11:16] LABS: BASOPHILS # (AUTO) 0.1 10^3/uL (0.0-0.1); BASOPHILS % (AUTO) 1 % (0-10); EOSINOPHILS # (AUTO) 1.1 10^3/uL (0.0-0.3); EOSINOPHILS % (AUTO) 19 % (0-10); HEMATOCRIT 39 % (40-54); HEMOGLOBIN 13.7 g/dL (13.3-17.7); LYMPHOCYTES # (AUTO) 2.4 10^3/uL (1.0-4.0); LYMPHOCYTES % (AUTO) 43 % (12-44); MEAN CORPUSCULAR HEMOGLOBIN 31 pg (25-34); MEAN CORPUSCULAR HGB CONC 35 g/dL (32-36); MEAN CORPUSCULAR VOLUME 90 fL (80-99); MEAN PLATELET VOLUME 8.2 fL (9.0-12.2); MONOCYTES # (AUTO) 0.5 10^3/uL (0.0-1.0); MONOCYTES % (AUTO) 8 % (0-12); NEUTROPHILS # (AUTO) 1.7 10^3/uL (1.8-7.8); NEUTROPHILS % (AUTO) 29 % (42-75); PLATELET COUNT 204 10^3/uL (130-400); WHITE BLOOD COUNT 5.7 10^3/uL (4.3-11.0)
--- NOTE | 2023-02-01 11:22 | Diagnostic Imaging Report ---
Clinical indication: Patient with chest pain started yesterday and states he comes and goes. Patient has history of 3 stents placed. EXAM: Portable chest x-ray upright view. COMPARISON: Chest x-ray dated 07/13/2022. FINDINGS: Lungs/pleura: Lungs are clear. There is no pneumothorax. There is no pleural effusion. Mediastinum: Unremarkable. Pulmonary vasculature: Unremarkable. Heart: Unremarkable. Bones/extrathoracic soft tissue: There are degenerative spurs involving the thoracic spine. IMPRESSION: There is no radiographic evidence of acute cardiopulmonary process. Dictated by: Dictated on workstation # [id number]
[2023-02-01 11:23] LABS: ALBUMIN 3.9 GM/DL (3.2-4.5); CHLORIDE 106 MMOL/L (98-107); POTASSIUM 3.9 MMOL/L (3.6-5.0); SODIUM 138 MMOL/L (135-145)
[2023-02-01 11:24] LABS: CALCIUM 8.8 MG/DL (8.5-10.1)
[2023-02-01 11:25] LABS: GLUCOSE 103 MG/DL (70-105)
[2023-02-01 11:26] LABS: INR 0.9 (0.8-1.4); PROTHROMBIN TIME PATIENT 12.5 SEC (12.2-14.7); TOTAL PROTEIN 7.1 GM/DL (6.4-8.2)
[2023-02-01 11:27] LABS: CARBON DIOXIDE 24 MMOL/L (21-32)
[2023-02-01 11:28] LABS: BILIRUBIN,TOTAL 0.5 MG/DL (0.1-1.0)
[2023-02-01 11:29] LABS: ALKALINE PHOSPHATASE 93 U/L (40-136); CREATININE SERUM 0.88 MG/DL (0.60-1.30); GFR ESTIMATED 101
[2023-02-01 11:30] LABS: BUN/CREATININE RATIO 28
[2023-02-01 11:32] LABS: ALANINE AMINOTRANSFERASE 36 U/L (0-55)
[2023-02-01 11:33] LABS: LIPASE 60 U/L (8-78)
[2023-02-01 11:53] LABS: BAND NEUTROPHILS 0 %; BASOPHILS % (MANUAL) 0 %; EOSINOPHILS % (MANUAL) 23 %; LYMPHOCYTES % (MANUAL) 40 %; MONOCYTES % (MANUAL) 11 %; NEUTROPHILS % (MANUAL) 24 %; RBC MORPH NORMAL; REACTIVE LYMPHOCYTES 2 %
[2023-02-01] MEDS ORDERED: ENOXAPARIN 100 MG/1 ML SYRINGE SC ONE (12:30)
[2023-02-01] MEDS ORDERED: ACETAMINOPHEN 325 MG TABLET PO PRN (14:45)
[2023-02-01] MEDS ORDERED: ONDANSETRON 4 MG ORAL DISSOLVE TABLET PO PRN (14:45)
[2023-02-01] MEDS ORDERED: diphenhydrAMINE 25 MG TABLET PO PRN (14:45)
[2023-02-01] MEDS ORDERED: polyethylene glycoL POWDER 17 GM (MIRALAX) PACK PO PRN (14:45)
[2023-02-01] MEDS ORDERED: ONDANSETRON INJECTION 4 MG/2 ML (SDV) IV PRN (14:45)
[2023-02-01] MEDS ORDERED: LACTULOSE SYRUP 10GM/15ML 30ML UDC PO PRN (14:45)
[2023-02-01] MEDS ORDERED: MILK OF MAGNESIA 400 MG/5 ML 30 ML UDC PO PRN (14:45)
[2023-02-01] MEDS ORDERED: BISACODYL 10 MG SUPPOSITORY PR PRN (14:45)
[2023-02-01] MEDS ORDERED: ANTACID SUSPENSION 30 ML UDC PO PRN (14:45)
[2023-02-01] MEDS ORDERED: diphenhydrAMINE INJ 50 MG/ML VIAL IVP PRN (14:45)
[2023-02-01] MEDS ORDERED: CALCIUM CARBONATE 500 MG CHEW TABLET PO PRN (14:45)
[2023-02-01] MEDS ORDERED: MELATONIN 3 MG TABLET PO PRN (14:45)
[2023-02-01 16:00] VITALS: BP_SYST 109; BP_SYST 120; BP_DIAS 74; BP_DIAS 81
[2023-02-01] MEDS: inSUlin ASPART 1 UNIT/0.01 ML (PER UNIT) SC SCH ×2 (17:19→20:35)
--- NOTE | 2023-02-01 17:58 | Consultation-Cardiology ---
HPI-Cardiology Cardiology Consultation: Date of Consultation 02/01/23 Date of Admission Attending Physician Perry Lanier DO Admitting Physician Admitting Physician: Emiliana Preston MD Attending Physician: Emiliana Preston MD Consulting Physician Doron DAMON MD HPI: Time Seen by a Provider: 17:55 Chief Complaint: Chest pain This is a 57-year-old gentleman who has previous history of diabetes, hypertension, hyperlipidemia, triple-vessel disease with 3 stents done in LAD, left circumflex artery and RCA. Patient is on dual antiplatelet therapy. He denies active smoking. He complains of worsening chest pain. Within the last 24 hours the chest pain has been associated with sweating. Review of Systems-Cardiology Review of Systems Constitutional: no symptoms reported Eyes: no symptoms reported Ears/Nose/Throat: no symptoms reported Respiratory: no symptoms reported Cardiovascular: chest pain Gastrointestinal: no symptoms reported Genitourinary: no symptoms reported Musculoskeletal: no symptoms reported Skin: no symptoms reported Psychiatric/Neurological: no symptoms reported All Other Systems Reviewed Negative Unless Noted: Yes CHV-Izsddc-Eelfel Hx Patient Social History Alcohol Use?: No Pt feels they are or have been: No Past Medical History PMH As described under Assessment. Family Medical History Family Medical History: Notes a h/o "heart disease" in 2 siblings but does not knwo any details Allergies and Home Medications Allergies Coded Allergies: lisinopril (Verified Allergy, Unknown, 12/26/21) Patient Home Medication List Home Medication List Reviewed: Yes Isosorbide Mononitrate (Isosorbide Mononitrate ER) 30 Mg Tab.er.24h, 30 MG PO DAILY, (Reported) Entered as Reported by: AMANDA THAKKAR on 05/12/211850 Last Action: Reviewed Metoprolol Succinate (Metoprolol Succinate) 25 Mg Tab.er.24h, 12.5 MG PO HS, (Reported) Entered as Reported by: AMANDA THAKKAR on 05/12/211850 Last Action: Reviewed Prasugrel HCl (Prasugrel HCl) 10 Mg Tablet, 10 MG PO DAILY, (Reported) Entered as Reported by: AMANDA THAKKAR on 05/12/211850 Last Action: Reviewed Discontinued Medications Atorvastatin Calcium (Atorvastatin Calcium) 40 Mg Tablet, 40 MG PO, (Reported) Discontinued Reason: No Longer Taking Entered as Reported by: AMANDA THAKKAR on 05/12/211850 Last Action: Discontinued Benzonatate (Tessalon Perles) 100 Mg Capsule, 200 MG PO TID Discontinued Reason: No Longer Taking Prescribed by: GERMAIN ONEILL on 12/26/21532 Last Action: Discontinued Dextromethorphan Polistirex (Dextromethorphan Polistirex) 30 Mg/5 Ml Jesica.er.12h, 60 MG PO BID Discontinued Reason: No Longer Taking Prescribed by: Pato Willoughby on 07/13/222239 Last Action: Discontinued Doxycycline Hyclate (Doxycycline Hyclate) 100 Mg Tablet, 100 MG PO BID Discontinued Reason: No Longer Taking Prescribed by: GERMAIN ONEILL on 12/26/21532 Last Action: Discontinued Fluticasone Propionate (Flonase Allergy Relief) 50 Mcg/Actuation [place].susp, 2 SPRAY NS DAILY Discontinued Reason: No Longer Taking Prescribed by: GERMAIN ONEILL on 12/26/21532 Last Action: Discontinued Guaifenesin/Dextromethorphan (Mucinex Dm ER 1,200-60 mg Tab) 1,200 Mg-60 Mg Tbmp.12hr, 1 EACH PO BID Discontinued Reason: No Longer Taking Prescribed by: GERMAIN ONEILL on 12/26/21532 Last Action: Discontinued Metformin HCl (Metformin HCl) 500 Mg Tablet, 500 MG PO, (Reported) Discontinued Reason: No Longer Taking Entered as Reported by: AMANDA THAKKAR on 05/12/211850 Last Action: Discontinued Exam Vital Signs Vital Signs Date Time Temp Pulse Resp B/P (MAP) Pulse Ox O2 Delivery O2 Flow Rate FiO2 02/01/23 16:00 36.6 68 13 109/81 (90) 96 Room Air Physical Exam Constitutional: No respiratory distress. Chest: Clear to auscultation bilaterally. CVS: Regular rate and rhythm. No significant murmur. Neuro: Nonfocal. No significant pedal edema. Labs Laboratory Tests Test 02/01/23 11:05 02/01/23 17:00 02/01/23 17:03 Range/Units White Blood Count 5.7 4.3-11.0 10^3/uL Red Blood Count 4.39 4.30-5.52 10^6/uL Hemoglobin 13.7 13.3-17.7 g/dL Hematocrit 39 L 40-54 % Mean Corpuscular Volume 90 80-99 fL Mean Corpuscular Hemoglobin 31 25-34 pg Mean Corpuscular Hemoglobin Concent 35 32-36 g/dL Red Cell Distribution Width 12.4 10.0-14.5 % Platelet Count 204 130-400 10^3/uL Mean Platelet Volume 8.2 L 9.0-12.2 fL Immature Granulocyte % (Auto) 0 % Neutrophils (%) (Auto) 29 L 42-75 % Lymphocytes (%) (Auto) 43 12-44 % Monocytes (%) (Auto) 8 0-12 % Eosinophils (%) (Auto) 19 H 0-10 % Basophils (%) (Auto) 1 0-10 % Neutrophils # (Auto) 1.7 L 1.8-7.8 10^3/uL Lymphocytes # (Auto) 2.4 1.0-4.0 10^3/uL Monocytes # (Auto) 0.5 0.0-1.0 10^3/uL Eosinophils # (Auto) 1.1 H 0.0-0.3 10^3/uL Basophils # (Auto) 0.1 0.0-0.1 10^3/uL Immature Granulocyte # (Auto) 0.0 0.0-0.1 10^3/uL Neutrophils % (Manual) 24 % Lymphocytes % (Manual) 40 % Monocytes % (Manual) 11 % Eosinophils % (Manual) 23 % Basophils % (Manual) 0 % Band Neutrophils 0 % Reactive Lymphocytes 2 % Blood Morphology Comment NORMAL Prothrombin Time 12.5 12.2-14.7 SEC INR Comment 0.9 0.8-1.4 Activated Partial Thromboplast Time 29 24-35 SEC Sodium Level 138 135-145 MMOL/L Potassium Level 3.9 3.6-5.0 MMOL/L Chloride Level 106 98-107 MMOL/L Carbon Dioxide Level 24 21-32 MMOL/L Anion Gap 8 5-14 MMOL/L Blood Urea Nitrogen 25 H 7-18 MG/DL Creatinine 0.88 0.60-1.30 MG/DL Estimat Glomerular Filtration Rate 101 BUN/Creatinine Ratio 28 Glucose Level 103 70-105 MG/DL Calcium Level 8.8 8.5-10.1 MG/DL Corrected Calcium 8.9 8.5-10.1 MG/DL Magnesium Level 2.0 1.6-2.4 MG/DL Total Bilirubin 0.5 0.1-1.0 MG/DL Aspartate Amino Transf (AST/SGOT) 21 5-34 U/L Alanine Aminotransferase (ALT/SGPT) 36 0-55 U/L Alkaline Phosphatase 93 40-136 U/L Myoglobin 69.5 10.0-92.0 NG/ML Troponin I < 0.028 < 0.028 <0.028 NG/ML B-Type Natriuretic Peptide < 10.0 <100.0 PG/ML Total Protein 7.1 6.4-8.2 GM/DL Albumin 3.9 3.2-4.5 GM/DL Lipase 60 8-78 U/L Glucometer 154 H 70-110 MG/DL ECG Impression ECG Initial ECG Rhythm: Normal Sinus Initial ECG Impression: Nonspecific Changes A/P-Cardiology Assessment/Admission Diagnosis Unstable angina, Coronary artery disease, Diabetes, Hypertension, Hyperlipidemia Plan I discussed at length with the patient. He has worsening chest pain and within the last 24 hours associated with prolonged episodes of sweating is very concerning. Patient has history of diabetes and triple-vessel PCI. He has been taking prasugrel. I recommended coronary angiography and possible intervention. Informed consent was taken including a 1% risk of complication including . Patient accepts all risk and would like to proceed with the procedure. 1 full dose Lovenox will given. N.p.o. after midnight. Hold a.m. Lovenox dose. Continue prasugrel. Echocardiogram shows normal LV function with no significant wall motion abnorm alities. Doron DAMON MD Feb 01, 2023 17:58
[2023-02-01 20:00] VITALS: BP 119/71
--- NOTE | 2023-02-01 20:21 | History & Physical-Hospitalist ---
History of Present Illness HPI/Chief Complaint Michael Cohn is a 57 year old male with PMH HTN, T2DM, HLD, CAD, obesity, who was admitted with chest pain. He reports a pressures in his chest last night. The pain did not radiate. He had associated diaphoresis. He denies nausea and vomiting. He denies dyspnea. He denies fevers and chills. He denies abdominal pain. He has no other complaints. Source: patient Exam Limitations: no limitations Date Seen 02/01/23 Time Seen by a Provider: 18:15 Attending Physician Perry Lanier DO PCP Admitting Physician: Chilo Zamora MD Attending Physician: Chilo Zamora MD Referring Physician Date of Admission Feb 01, 2023 at 14:32 Home Medications & Allergies Home Medications Reviewed patient Home Medication Reconciliation performed by pharmacy medication reconciliations forest ranger technician and/or nursing. Patients Allergies have been reviewed. Allergies Allergies Coded Allergies lisinopril (Verified Allergy, Unknown, 12/26/21) Past Ypaxlug-Jwioep-Gsttyb Hx Patient Social History Tobacco Use?: No Use of E-Cig and/or Vaping dev: No Substance use?: No Alcohol Use?: No Pt feels they are or have been: No Immunizations Up To Date First/Initial COVID19 Vaccinat: "3 shots" Second COVID19 Vaccination Castillo: unknown date Tetanus Booster (TDap): Less Than 5 Years Seasonal Allergies Seasonal Allergies: No Current Status Advance Directives: No Communicates: Verbally Primary Language: [facility] Preferred Spoken Language: Greenlandic Is interpretation needed?: No Sensory deficits: Vision impairment Implanted or Applied Medical D: Stents Past Medical History Surgeries: Coronary Stent Coronary Artery Disease, Heart Attack, High Cholesterol, Hypertension Diabetes, Non-Insulin dep Blood Disorders: No Family Medical History No Pertinent Family Hx SOCIAL HISTORY: STATES HE USED TO SMOKE "MAYBE A PACK A WEEK" BUT CANNOT STATE HOW LONG HE SMOKED OR HOW LONG AGO HE QUIT--FIRST STATES "MAYBE A YEAR AGO" THEN STATES "10 YEARS AGO OR SO" STATES HE "USED TO DRINK A LITTLE" BUT UNABLE TO STATE HOW MUCH HE DRANK OR HOW LONG IT HAS BEEN SINCE HE HAD ANY ALCOHOL PAST SURGICAL HISTORY: CARDIAC CATH 02/15/[address] WATKINS FOR NSTEMI: CORONARY ANGIOGRAPHY: Left main coronary artery is free of significant disease. Left anterior descending artery has proximal calcification. There is a long proximal stenotic segment that extends from the ostium to the mid left anterior descending artery and constitute up to 90% stenosis. The left circumflex artery has approximately 70% proximal and 90% mid vessel stenosis. Right coronary artery is dominant and has approximately 50% proximal and 90% mid vessel stenosis. LEFT VENTRICULAR ANGIOGRAPHY: Left ventricular angiography was carried out in the right anterior oblique projection. Global left ventricular systolic function is well preserved. Left ventricular ejection fraction is 50 to 55%. CONCLUSIONS: 1. Multivessel coronary artery disease including up to 90% proximal left anterior descending artery, 90% mid left circumflex, and 90% mid right coronary artery stenoses. Right coronary artery is dominant. 2. Well preserved global left ventricular systolic function with ejection fraction of 50 to 55%. 3. Left ventricular end-diastolic pressure is 11 mmHg. DISCUSSION AND RECOMMENDATIONS: Based on results of the study, coronary artery bypass surgery appears to be the best treatment option. We have spoken with Dr. Joseph of the cardiovascular surgical services at [facility] and he has kindly accepted the patient in transfer. Arrangements are being made at the time of this dictation. Review of Systems Constitutional: diaphoresis Respiratory: no symptoms reported Cardiovascular: chest pain Gastrointestinal: no symptoms reported Physical Exam Physical Exam Vital Signs Vital Signs - First Documented 02/01/23 10:49 Temp 36.5 Pulse 67 Resp 18 B/P (MAP) 124/85 (98) Pulse Ox 96 O2 Delivery Room Air Capillary Refill : Less Than 3 Seconds Height, Weight, BMI Height: '" Weight: lbs. oz. kg; 33.00 BMI Method: General Appearance: No Apparent Distress, Obese HEENT: PERRL/EOMI, Pharynx Normal Neck: Normal Inspection, Supple Respiratory: Lungs Clear, Normal Breath Sounds, No Respiratory Distress Cardiovascular: Regular Rate, Rhythm, No Murmur Gastrointestinal: Normal Bowel Sounds, Non Tender, Soft Extremity: Non Tender; No Inflammation; Pedal Edema Neurologic/Psychiatric: Alert, Oriented x3, Normal Mood/Affect Skin: Normal Color, Diaphoresis Results Results/Procedures Labs Laboratory Tests 02/01/23 11:05 Patient resulted labs reviewed. Imaging: Reviewed Imaging Report Assessment/Plan Admission Diagnosis Chest pain Admission Status: Observation Assessment and Plan Chest pain CAD HTN HLD Obesity Former smoker Troponin normal EKG unremarkable Cardiology consulted ASA Lipitor Therapeutic Lovenox NPO after midnight for left heart cath tomorrow T2DM Sliding scale insulin Diagnosis/Problems Diagnosis/Problems (1) Chest pain Status: Acute (2) HTN (hypertension) Status: Chronic (3) T2DM (type 2 diabetes mellitus) Status: Chronic Qualifiers: Diabetes mellitus fpc insulin use: without fpc use (4) HLD (hyperlipidemia) Status: Chronic (5) CAD (coronary artery disease) Status: Acute (6) Obesity Status: Chronic (7) Former smoker Status: Chronic Clinical Quality Measures AMI/AHF: ASA po Prior to arrival: Yes (DR WHALEY GAVE "1 TAB") CHILO ZAMORA MD Feb 01, 2023 20:21
[2023-02-01] MEDS: SENNOSIDES 8.6 MG (SENOKOT) TAB PO SCH (20:35)
[2023-02-01] MEDS: DOCUSATE SODIUM 100 MG CAPSULE PO SCH (20:35)
[2023-02-01 23:33] VITALS: BP 127/78
[2023-02-02] MEDS ORDERED: ENOXAPARIN 100 MG/1 ML SYRINGE SC SCH (02:00)
[2023-02-02 04:05] VITALS: BP 107/78
[2023-02-02 04:51] LABS: BASOPHILS # (AUTO) 0.1 10^3/uL (0.0-0.1); BASOPHILS % (AUTO) 1 % (0-10); EOSINOPHILS # (AUTO) 1.1 10^3/uL (0.0-0.3); EOSINOPHILS % (AUTO) 19 % (0-10); HEMATOCRIT 38 % (40-54); HEMOGLOBIN 13.4 g/dL (13.3-17.7); LYMPHOCYTES # (AUTO) 2.7 10^3/uL (1.0-4.0); LYMPHOCYTES % (AUTO) 48 % (12-44); MEAN CORPUSCULAR HEMOGLOBIN 31 pg (25-34); MEAN CORPUSCULAR HGB CONC 36 g/dL (32-36); MEAN CORPUSCULAR VOLUME 88 fL (80-99); MEAN PLATELET VOLUME 8.7 fL (9.0-12.2); MONOCYTES # (AUTO) 0.4 10^3/uL (0.0-1.0); MONOCYTES % (AUTO) 8 % (0-12); NEUTROPHILS # (AUTO) 1.4 10^3/uL (1.8-7.8); NEUTROPHILS % (AUTO) 24 % (42-75); PLATELET COUNT 206 10^3/uL (130-400); WHITE BLOOD COUNT 5.6 10^3/uL (4.3-11.0)
[2023-02-02 05:08] LABS: BUN/CREATININE RATIO 22; CALCIUM 8.6 MG/DL (8.5-10.1); CARBON DIOXIDE 22 MMOL/L (21-32); CHLORIDE 108 MMOL/L (98-107); CHOLESTEROL 204 MG/DL (< 200); CREATININE SERUM 0.87 MG/DL (0.60-1.30); GFR ESTIMATED 101; GLUCOSE 112 MG/DL (70-105); HDL CHOLESTEROL 40 MG/DL (40-60); POTASSIUM 4.3 MMOL/L (3.6-5.0); SODIUM 138 MMOL/L (135-145); TRIGLYCERIDES 125 MG/DL (<150); VLDL CHOLESTEROL 25 MG/DL (5-40)
[2023-02-02] MEDS: inSUlin ASPART 1 UNIT/0.01 ML (PER UNIT) SC SCH ×3 (05:34→16:51)
[2023-02-02] MEDS ORDERED: ASPIRIN 81 MG CHEWABLE TABLET PO SCH (09:00)
[2023-02-02] MEDS ORDERED: LIDOCAINE 1% INJ 20 ML VIAL ONE (10:18)
[2023-02-02] MEDS ORDERED: NS IV 1000 ML 1,000 ML ONE (10:19)
[2023-02-02] MEDS ORDERED: HEParin (CATH LAB) 2,000 ML IV ONE (10:19)
[2023-02-02] MEDS: DOCUSATE SODIUM 100 MG CAPSULE PO SCH (10:30)
[2023-02-02] MEDS: SENNOSIDES 8.6 MG (SENOKOT) TAB PO SCH (10:30)
[2023-02-02] MEDS ORDERED: fentaNYL INJECTION 100 MCG/2 ML VIAL ONE (11:36)
[2023-02-02] MEDS ORDERED: MIDAZOLAM INJ 5 MG/5 ML VIAL ONE (11:37)
[2023-02-02] MEDS ORDERED: HEParin 1000 UNIT/ML (10ML VIAL) FOR BOLUS ONE (12:17)
[2023-02-02] MEDS ORDERED: NITRO DRIP 25000 MCG/D5W 250 ML IV ONE (12:17)
[2023-02-02] MEDS ORDERED: VERAPAMIL 5 MG/2 ML (CALAN) VIAL IV ONE (12:17)
[2023-02-02] MEDS ORDERED: NS IV 1000 ML 1,000 ML IV SCH ×2 (12:45→13:45)
[2023-02-02] MEDS ORDERED: TICAGRELOR 90 MG TABLET (BRILINTA) PO ONE (13:08)
--- NOTE | 2023-02-02 13:33 | Cardiac Procedure Note-CS/ASA ---
Pre-Procedure Note Pre-Op Procedure Note Date H&P Reviewed: Feb 02, 2023 Time H&P Reviewed: 11:00 History & Physical: H&P Reviewed, No changes noted Pre-Operative Diagnosis: Unstable angina Moderate Sedation PreProcedure Time 11:00 ASA Score 3 Airway Lungs Heart ASA score ASA 1: a normal healthy patient ASA 2: a patient with a mild systemic disease (mid diabetes, controlled hypertension, obesity ASA 3: a patient with a severe systemic disease that limits activity (angina, COPD, prior Myocardial infarction) ASA 4: a patient with an incapacitating disease that is a constant threat to life (CHF, renal failure) ASA 5: a moribund patient not expected to survive 24 hrs. (ruptured aneurysm) ASA 6: a declared brain- patient whose organs are being harvested. For emergent operations, add the letter E after the classification Mallampati Classification Grade 1 Sedation Plan Analgesia, Amnesia, Plan communicated to team members, Discussed options with patient/fam, Discussed risks with patient/fam The patient is an appropriate candidate to undergo the planned procedure, sedation, and anesthesia. The patient immediately re-assessed prior to indication. Doron DAMON MD Feb 02, 2023 13:33
--- NOTE | 2023-02-02 13:40 | Coronary Angiography Report ---
Coronary Angiography Report DATE OF PROCEDURE: 02/02/23 INDICATION: Unstable angina PREOPERATIVE DIAGNOSIS: Unstable angina POSTOPERATIVE DIAGNOSIS: Patent stents, moderate coronary artery disease HISTORY: This is a 57-year-old gentleman with previous three-vessel PCI. He has history of diabetes. He presents with prolonged episode of chest pain. Serial troponin were negative. Therefore, the patient was scheduled for coronary angiography. PROCEDURES PERFORMED: 1.Coronary angiography. 2.Left heart catheterization. 3. iFR of the second OM is recommended. 4. iFR of right PDA is recommended. COMPLICATIONS: None. SPECIMENS: None. ESTIMATED BLOOD LOSS: 10 mL ANESTHESIA: Conscious sedation ANTICOAGULATION: IV heparin CONTRAST: 122 ml FLUOROSCOPY: 11.1 minutes. FLOUROSCOPY DOSE: 1480 mgy PROCEDURE DETAILS: The patient is a 57 male and was brought to the clinical lab clerk after informed consent was taken. All the risks and complications were explained in detail; this included the risk of bleeding, vascular damage, stroke, NC and even . The patient was draped and prepped in the usual sterile fashion. Access was gained in the right radial artery with a 6 [place] sheath. Coronary angiography and left heart catheterization was performed with the [employer] catheter. FINDINGS: 1.Left main: Patent 2.LAD: Patent LAD stent. 3.Left circumflex artery: Patent stent in the mid left circumflex artery. Moderate stenosis in the second OM artery. 4.RCA: Patent stent in the mid RCA. Moderate to severe stenosis of the ostium of the right PDA. 5.Left heart catheterization: Aortic pressure 104/70 mmHg. LV pressure 107/3 mmHg. LVEDP 10 mmHg. Normal LV function with no wall motion abnormalities. No gradient across the aortic valve. Recommendations: iFR of the second OM artery and right PDA is recommended. iFR details: Heparin total 8000 units given. ACT at the end of the procedure was 205 seconds. Patient was already on dual antiplatelet therapy. Second OM IFR was done via the [employer] catheter. An IFR wire crossed the lesion and was placed distal to the moderate stenosis in the proximal segment of the second OM artery. iFR reading was 0.94. Which is in the normal range. Wire was taken out and post angiogram did not show any vascular complications. For the RCA; we took a JR4 guide catheter. The lesion was crossed with a IFR wire and was placed in the distal RPDA. iFR was done twice. Readings were 0.99 and 0.96.Both are normal therefore PCI was deferred. Wire was taken out. Post angiogram did not show any vascular complication. Radial band was placed. No hemodynamic complication.Patient left the [place] [place] with stable hemodynamics. CONCLUSIONS: Patent stents in the proximal LAD, mid left circumflex artery and mid RCA. Moderate disease in the second OM and right PDA was acceptable on IFR therefore PCI was deferred Aggressive secondary prevention measures. Radha Moore MD, FACP, FACC, [facility] Interventional Cardiology Doron MOORE MD Feb 02, 2023 13:40
[2023-02-02] MEDS ORDERED: PATIENT MAY USE OWN MEDS, ALL PO SCH (13:45)
[2023-02-02 16:00] VITALS: BP 144/88
--- NOTE | 2023-02-02 18:17 | Discharge Summary ---
Discharge Summary Hospital Course Problems/Dx: (1) Chest pain Status: Acute (2) HTN (hypertension) Status: Chronic (3) T2DM (type 2 diabetes mellitus) Status: Chronic Qualifiers: (4) HLD (hyperlipidemia) Status: Chronic (5) CAD (coronary artery disease) Status: Acute (6) Obesity Status: Chronic (7) Former smoker Status: Chronic Hospital Course Date of Admission: Feb 01, 2023 at 14:32 Admission Diagnosis : Chest pain Family Physician/Provider: Perry Matamoros DO Date of Discharge: 02/02/23 Discharge Diagnosis: Coronary artery disease Hospital Course: Michael Cohn is a 57 year old male with PMH HTN, T2DM, HLD, CAD s/p coronary stenting, obesity, former smoker, who was admitted with chest pain. His troponin remained within normal limits. Cardiology was consulted. Due to his risk factors and symptoms, left heart cath was recommended. He underwent left heart cath which revealed moderate stenosis of OM2 and moderate-severe stenosis of right PDA. IFR was performed and was within normal limits, so PCI was deferred. He was continued on Imdur, Metoprolol, and Prasugrel. He should follow up with his PCP and Cardiology as scheduled. He was discharged home in stable condition. Labs and Pending Lab Test: Laboratory Tests 02/01/23 20:24: Glucometer 105 02/02/23 04:38: White Blood Count 5.6, Red Blood Count 4.29L, Hemoglobin 13.4, Hematocrit 38L, Mean Corpuscular Volume 88, Mean Corpuscular Hemoglobin 31, Mean Corpuscular Hemoglobin Concent 36, Red Cell Distribution Width 12.4, Platelet Count 206, Mean Platelet Volume 8.7L, Immature Granulocyte % (Auto) 0, Neutrophils (%) (Auto) 24L, Lymphocytes (%) (Auto) 48H, Monocytes (%) (Auto) 8, Eosinophils (%) (Auto) 19H, Basophils (%) (Auto) 1, Neutrophils # (Auto) 1.4L, Lymphocytes # (Auto) 2.7, Monocytes # (Auto) 0.4, Eosinophils # (Auto) 1.1H, Basophils # (Auto) 0.1, Immature Granulocyte # (Auto) 0.0, Sodium Level 138, Potassium Level 4.3, Chloride Level 108H, Carbon Dioxide Level 22, Anion Gap 8, Blood Urea Nitrogen 19H, Creatinine 0.87, Estimat Glomerular Filtration Rate 101, BUN/Creatinine Ratio 22, Glucose Level 112H, Mean Blood Glucose [Pending], Hemoglobin A1c [Pending], Calcium Level 8.6, Troponin I < 0.028, Triglycerides Level 125, Cholesterol Level 204H, LDL Cholesterol Direct 152H, VLDL Cholesterol 25, HDL Cholesterol 40 02/02/23 15:47: Glucometer 134H Home Meds Active Reported Isosorbide Mononitrate ER (Isosorbide Mononitrate) 30 Mg Tab.er.24h 30 Mg PO DAILY Prasugrel HCl 10 Mg Tablet 10 Mg PO DAILY Metoprolol Succinate 25 Mg Tab.er.24h 12.5 Mg PO HS TAKES OF A 25MG Assessment/Pt Instructions See instructions Discharge Planning: <30 minutes discharge planning Discharge Instructions Discharge Diet: Low Sodium Diet Activity as Tolerated: Yes Consultations Cardiology Discharge Physical Examination Vital Signs Vital Signs Date Time Temp Pulse Resp B/P (MAP) Pulse Ox O2 Delivery O2 Flow Rate FiO2 02/02/23 18:03 02/02/23 16:00 36.3 59 18 98 Room Air 02/02/23 14:39 0.00 General Appearance: No Apparent Distress, Obese Respiratory: Chest Non Tender, Lungs Clear, No Respiratory Distress Cardiovascular: Regular Rate, Rhythm, No Murmur Gastrointestinal: Normal Bowel Sounds, Soft Extremity: Non Tender, Pedal Edema Skin: Normal Color, Warm/Dry Neurologic/Psychiatric: Alert, Normal Mood/Affect Allergies: Coded Allergies: lisinopril (Verified Allergy, Unknown, 12/26/21) Copy Copies To 1: PERRY MATAMOROS DO Discharge Summary Date of Admission Feb 01, 2023 at 14:32 Date of Discharge Feb 02, 2023 at 18:00 Discharge Date: Feb 02, 2023 Discharge Time: 1800 Admission Diagnosis Chest pain Consults/Procedures Consulations Cardiology Procedures Left heart cath Discharge Diagnosis Chest pain CAD HTN HLD Obesity Former smoker T2DM (1) Chest pain Status: Acute (2) HTN (hypertension) Status: Chronic (3) T2DM (type 2 diabetes mellitus) Status: Chronic Qualifiers: (4) HLD (hyperlipidemia) Status: Chronic (5) CAD (coronary artery disease) Status: Acute (6) Obesity Status: Chronic (7) Former smoker Status: Chronic Clinical Quality Measures AMI/AHF: ASA po Prior to arrival: Yes (DR WHALEY GAVE "1 TAB") CHILO ZAMORA MD Feb 02, 2023 18:16
[2023-02-03] MEDS ORDERED: PRASUGREL 10 MG (EFFIENT) TABLET PO SCH (09:00)
[2023-02-03] MEDS ORDERED: ASPIRIN enteric coated 81MG TABLET PO SCH (09:00)
== END 2023-02-02 18:00 | disposition home or self-care (01) ==
LOC: EDUNIT# 10:44 → ER 10:46 → CSD 14:32
PROVIDERS: ADMIT Internal Medicine; ATTEND Internal Medicine
DX: I25.110 Atherosclerotic heart disease of native coronary artery with unstable angina pectoris (principal); E78.5 Hyperlipidemia, unspecified; E66.9 Obesity, unspecified; I10 Essential (primary) hypertension; E11.9 Type 2 diabetes mellitus without complications; Z87.891 Personal history of nicotine dependence; Z95.5 Presence of coronary angioplasty implant and graft; Z79.02 Long term (current) use of antithrombotics/antiplatelets; Z79.84 Long term (current) use of oral hypoglycemic drugs; Z68.33 Body mass index [BMI] 33.0-33.9, adult
CPT/HCPCS: 36415; 71045; 80048; 80053; 80061; 82947; 83036; 83690; 83735; 83874; 83880; 84484; 85007; 85025; 85027; 85347; 85610; 85730; 93005; 93041; 93306; 93458; G0378